=== PATIENT | male | born 1940 | race Caucasian/White ===

== ENCOUNTER 2020-01-22 11:08 | Inpatient (IN) | payer MEDICARE, SELFPAY ==
[2020-01-22] VITALS (13 sets, daily range): BP systolic 131–184; BP diastolic 50–74; PULSE 56–71; RESP 18–25; TEMP 36.3–36.7; O2SAT 91–96; BMI 37.4; BMI 38.0
--- NOTE | 2020-01-22 11:24 | RAD_ITS ---
STUDY: X-RAY CHEST REASON FOR EXAM: Male, 80 years old. Increase SOB, loss of taste/smell TECHNIQUE: Single AP portable view of the chest. COMPARISON: None. FINDINGS: EKG electrodes are seen. Zones of bilateral pulmonary infiltrates throughout both lungs worse in the left hemithorax. There is no demonstrated pleural abnormality. There is moderate cardiac enlargement. Normal mediastinum and mishel. Normal visualized pulmonary arteries. There is atherosclerotic calcification of the aortic arch with tortuosity. There are diffuse degenerative changes of the visualized thoracic spine. Normal visualized ribs, clavicles, and shoulders. There is no demonstrated abnormality of the visualized soft tissue structures of the upper abdomen. RAD/Chest 1 View (Portable) IMPRESSION: Progressive bilateral pulmonary infiltrates worse in the left hemithorax. Electronically Signed: Jeffy Sheehan, at 12:30 EST , Service support ,
--- NOTE | 2020-01-22 11:24 | EKG12_ITS ---
Test Reason : SOB Blood Pressure : / mmHG Vent. Rate : 056 BPM Atrial Rate : 056 BPM P-R Int : 160 ms QRS Dur : 102 ms QT Int : 448 ms P-R-T Axes : 035 001 034 degrees QTc Int : 432 ms Sinus bradycardia Otherwise normal ECG Confirmed by YANETH DAVIS, LISA ([id number]), writer editor MARIA A NG ([id number]) on 01/27/2020 9:18:56 AM Referred By: MALIK Confirmed By:LISA WOLFE MD
--- NOTE | 2020-01-22 11:26 | ED.DCSUM_ITS ---
History of Present Illness Informant: Patient Onset: Days Narrative: 80-year-old male with past medical history of hypertension, hyperlipidemia presents with shortness of breath. For the last 2 weeks he has had dyspnea on exertion when walking to the mailbox. He states he had a mild cough today but otherwise has not been coughing. Dyspnea on exertion progressed to walking short distances in his house and he became short of breath at rest. He has orthopnea and new lower extremity swelling. Denies history of cardiopulmonary disease. He states he had an echo and a stress test in the remote past. Denies fevers, chills, nausea, vomiting, chest pain, hemoptysis, abdominal pain, or diarrhea. <Adele Gil - Last Filed: 01/22/20 13:23> <Aurelio Tolentino - Last Filed: 01/22/20 13:53> Chief Complaint: Shortness of Breath Past Medical History Past Medical History: - - Hypertension, hyperlipidemia Smoking Status: Former smoker <Adele Gil - Last Filed: 01/22/20 13:23> <Aurelio Tolentino - Last Filed: 01/22/20 13:53> - Allergies and Home Meds Allergies/Adverse Reactions: Allergies doxazosin [From Cardura] Allergy (Verified 01/22/20 11:37) Swelling rosuvastatin [From Crestor] Adverse Reaction (Verified 01/22/20 11:37) Pain in joints Review of Systems General: Denies: Chills, Fever, Sweats Eyes: Denies: Visual changes - bilaterally, Diplopia ENT: Denies: Rhinorrhea, Sore throat Cardiovascular: Denies: Chest pain, Palpitations Respiratory: Reports: Dyspnea, Dyspnea on exertion, Orthopnea. Denies: Cough Gastrointestinal: Denies: Abdominal pain, Nausea, Vomiting, Diarrhea, Melena, Hematochezia Genitourinary: Denies: Dysuria, Hematuria, Frequency Musculoskeletal: Reports: Swelling. Denies: Back pain, Extremity Pain Skin: Denies: Rash, Wounds Neurological: Denies: Headache, Weakness, Numbness <Adele Gil - Last Filed: 01/22/20 13:23> Physical Exam Vital Signs/Narrative: Vital Signs Temp Pulse Resp BP Pulse Ox 01/22/20 11:13 97.7 F L 60 25 H 167/67 H 95 General: Well nourished, Well developed, No Acute Distress Head: Normocephalic, Atraumatic Eyes: Perrl, EOMI ENT: Moist mucous membranes, No rhinorrhea Neck: Supple, Nontender Cardiovascular: Regular rate, Regular rhythm, No murmurs Respiratory: No distress, CTA bilaterally, Chest nontender Abdomen: Soft, Nontender, Nondistended, Normal bowel sounds Back: Normal Inspection Extremities: Nontender, - - 3+ bilateral pitting edema below the knee Skin: Normal color, No rash Neurological: Alert, Oriented x3, Cranial nerves II-XII grossly intact, Normal Strength, Normal Sensation Psychological: Normal affect, Normal Mood <Adele Gil - Last Filed: 01/22/20 13:23> Vital Signs/Narrative: Vital Signs Temp Pulse Resp BP Pulse Ox 01/22/20 13:00 97.3 F L 58 L 22 H 158/63 H 92 01/22/20 12:22 97.3 F L 56 L 25 H 146/50 H 96 01/22/20 12:09 56 L 25 H 146/50 H 96 01/22/20 11:13 97.7 F L 60 25 H 167/67 H 95 01/22/20 11:09 56 L 24 H 184/74 H 94 <Aurelio Tolentino - Last Filed: 01/22/20 13:53> Diagnostic/Tx/Re-eval Clinical Impression(s) from Imaging Studies Chest X-Ray 01/22/20 11:24 IMPRESSION: Progressive bilateral pulmonary infiltrates worse in the left hemithorax. Electronically Signed: Jeffy Aguila, at 12:30 EST , Service support , Laboratory Data 01/22/20 01/22/20 01/22/20 11:40 11:40 11:40 WBC 14.0 H RBC 4.22 L Hgb 12.7 L Hct 39.7 L MCV 94.1 H MCH 30.1 MCHC 32.0 RDW Std Deviation 52.1 H RDW Coeff of Kristal 15.2 H Plt Count 293 MPV 10.9 Immature Gran % (Auto) 0.800 Neut % (Auto) 85.1 H Lymph % (Auto) 4.9 L [place] % (Auto) 8.7 Eos % (Auto) 0.3 Baso % (Auto) 0.2 Absolute Neuts (auto) 11.9 H Absolute Lymphs (auto) 0.68 L Nucleated RBC % 0.1 Specimen Type Sample Site pH Bicarbonate Actual Total CO2 Base Excess O2 Saturation ABG pCO2 ABG pO2 Luis A Test O2 Delivery Device Liter Flow Sodium 139 Potassium 4.1 Chloride 104 Carbon Dioxide 27.0 Anion Gap 8 BUN 35 H Creatinine 1.39 H Estim Creat Clear Calc 43.04 Est GFR (MDRD) Af Amer 63 Est GFR (MDRD) Non-Af 52 L BUN/Creatinine Ratio 25.2 H Glucose 116 H Calcium 9.5 Troponin I < 0.015 B-Natriuretic Peptide 304.1 H 01/22/20 11:57 WBC RBC Hgb Hct MCV MCH MCHC RDW Std Deviation RDW Coeff of Kristal Plt Count MPV Immature Gran % (Auto) Neut % (Auto) Lymph % (Auto) [place] % (Auto) Eos % (Auto) Baso % (Auto) Absolute Neuts (auto) Absolute Lymphs (auto) Nucleated RBC % Specimen Type ART Sample Site R Brach pH 7.36 Bicarbonate Actual 26.9 H Total CO2 28 Base Excess 2 O2 Saturation 94 L ABG pCO2 47.5 H ABG pO2 76 Luis A Test Positive O2 Delivery Device Cannula Liter Flow 5.0 Sodium Potassium Chloride Carbon Dioxide Anion Gap BUN Creatinine Estim Creat Clear Calc Est GFR (MDRD) Af Amer Est GFR (MDRD) Non-Af BUN/Creatinine Ratio Glucose Calcium Troponin I B-Natriuretic Peptide - Medical Decision Making 80-year-old male presents with shortness of breath. He walked into triage and O2 sat was in the 50-60s. He was initially placed on NRB and and sats improved and he was weaned to 5L NC and is maintaining over 90%. Lungs are clear to auscultation. He has significant lower extremity edema. Labs show leukocytosis of 14, creatinine of 1.39, BNP 300. ABG is essentially WNL with O2 94 on 5L NC. Troponin negative. EKG normal sinus rhythm with no ischemic changes. Chest x- ray was read as bilateral pulmonary infiltrates, but on ED attending interpretation appears to be fluid overloaded. He has not had a fever or consistent cough and I do not think this is pneumonia. COVID-19 is negative. He was treated with IV Lasix and will need admitted for O2 and further diuresis. Case discussed with hospitalist who was agreeable to admission and he was transferred to the floor in stable condition. <Adele Gil - Last Filed: 01/22/20 13:23> - Medical Decision Making Patient presents with shortness of breath and hypoxia. On 5 L nasal cannula, he did maintain his oxygen saturations. He does sound coarse with rales consistent with pulmonary edema. His chest x-ray shows bilateral pulmonary infiltrates, but I do suspect this is likely all volume. Patient was started on diuresis. Labs are relatively unremarkable. I do feel the patient would benefit from diuresis and echo. He was discussed with the hospitalist. <Aurelio Tolentino - Last Filed: 01/22/20 13:53> ED Disposition <Adele Gil - Last Filed: 01/22/20 13:23> <Aurelio Tolentino - Last Filed: 01/22/20 13:53> - Plan for ED Patient: Disposition: Acute Care Hospital [facility] Diagnosis: CHF (congestive heart failure), Respiratory failure
[2020-01-22 11:54] LABS: Absolute Lymphocyte Count 0.68 X10^3/uL (0.83-4.51); Absolute Neutrophil Count 11.9 X10^3/uL (2.0-7.7); Basophil# 0.03 X10^3/uL; Basophil% 0.2 % (0-1); Eosinophil# 0.04 X10^3/uL; Eosinophils% 0.3 % (0-5); Hematocrit 39.7 % (40-54); Hemoglobin 12.7 g/dL (13.0-16.5); Lymphocyte # 0.68 X10^3/ul (4.0); Lymphocyte % 4.9 % (19-41); Mean Corpuscular Hgb 30.1 pg (27.0-32.0); Mean Corpuscular Volume 94.1 fL (80-94); Mean Platelet Vol. 10.9 fl (6.2-12.0); Monocyte# 1.22 X10^3/uL; Monocyte% 8.7 % (0-10); NRBC Flagged by Analyzer 0.1 % (0-5); Neutrophil # 11.94 X10^3/uL (2.7-7.7); Neutrophil % 85.1 % (47-70); Platelet Count 293 K/mm3 (150-450); RBC Distribution Width CV 15.2 % (11.6-14.6); RBC Distribution Width SD 52.1 fl (35.1-43.9); Red Blood Count 4.22 M/mm3 (4.6-6.2)
[2020-01-22 12:00] LABS: Allen Test Positive; Base Excess 2 mmol/L (-2 to +2); Bicarbonate 26.9 mmol/L (22-26); Blood Gas Specimen Type ART; O2 Delivery Device Cannula; PO2 76 mmHG (75-100); SITE R Brach; SO2 94 % (95-99); Total Carbon Dioxide 28 mmol/L; pCO2 47.5 mmHg (35-45); pH 7.36 (7.35-7.45)
[2020-01-22 12:16] LABS: Anion Gap 8 (5-15); BUN 35 mg/dL (7-18); BUN/Creat Ratio 25.2 RATIO (10-20); Calcium,Total 9.5 mg/dL (8.5-10.1); Chloride 104 mmol/L (98-107); Creatinine, Serum 1.39 mg/dL (0.70-1.30); EST Glomerular Filtration Rate 52 mL/min (>60); Est Glom Filt Rate - Afr Amer 63 mL/min (>60); Estimated Creatinine Clearance 43.04 ml/min; Glucose 116 mg/dL (74-106); Potassium 4.1 mmol/L (3.5-5.1); Sodium Level 139 mmol/L (136-145)
[2020-01-22 12:19] LABS: BNP,B-Type NATRIURETIC PEPTIDE 304.1 pg/mL (0-100)
[2020-01-22] MEDS: Furosemide 40 MG/4 ML Vial IV ×2 (12:33→17:38)
--- NOTE | 2020-01-22 12:55 | ED.RN ---
pt stood at bedside and with exertion o2 sat dropped to 87% on 5l. with pt back and bed and resting now up to 92%. will monitor
[2020-01-22 13:16] LABS: Probe Check PASS; Specimen Processing Control PASS
--- NOTE | 2020-01-22 13:29 | HP.PCM_ITS ---
Problem List (1) CHF (congestive heart failure) Status: Acute Qualifiers: Heart failure type: unspecified Heart failure chronicity: acute Qualified Code(s): I50.9 - Heart failure, unspecified (2) Respiratory failure Status: Acute Qualifiers: Chronicity: acute Respiratory failure complication: hypoxia Qualified Code(s): J96.01 - Acute respiratory failure with hypoxia (3) Hypertension Status: Chronic Qualifiers: Hypertension type: essential hypertension Qualified Code(s): I10 - Essential (primary) hypertension (4) Hyperlipidemia Status: Chronic Qualifiers: Hyperlipidemia type: unspecified Qualified Code(s): E78.5 - Hyperlipidemia, unspecified History of Present Illness Date of Admission: 01/22/20 Chief Complaint: Shortness of breath ongoing for the past 2 days, worsening over the last 3 days. The patient is a 80 year old M with past medical history of hypertension, hyperlipidemia who comes in with progressive shortness of breath, bilateral leg swelling and orthopnea ongoing for 2 weeks, worsening the last 3 days. Patient had recently seen his primary care doctor in the telemedicine call, his triamterene hydrochlorothiazide was held, he was prescribed Lasix but he is yet to take it. Denied any chest pain or dizziness or palpitation. Denied any other new medication. Vitals in the ED showed temperature of 97.7F, heart rate 50, blood pressure 157/57, SPO2 was in the 50s on room air in triage. It improved to 94% on a n onrebreather mask. He started BC count 14.0, Hb 12.7, platelet count 293, numbers 139, potassium 4.1, chloride 104, bicarbonate 27, BUN 35, creatinine 1.39, troponin 0 0.015, COVID-19 PCR negative. BG showed pH 7.36, PCO2 was 47.5, SPO2 94%. Admitting chest x-ray shows moderate cardiac enlargement, bilateral progressive pulmonary infiltrates worse in the left hemithorax Past Medical History Past Medical History (Chronic Problems): Chronic Problems Hypertension (Chronic) Hyperlipidemia (Chronic) Allergies doxazosin [From Cardura] Allergy (Verified 01/22/20 11:37) Swelling rosuvastatin [From Crestor] Adverse Reaction (Verified 01/22/20 11:37) Pain in joints Home Medications: Ambulatory Orders Medication Instructions Recorded Acetaminophen [Tylenol Extra 500 mg PO BID 01/22/20 Strength] Amlodipine [Norvasc] 10 mg PO DAILY 01/22/20 Aspirin [Aspirin, Baby] 81 mg PO DAILY@0800 01/22/20 Labetalol HCl 300 mg PO BID 01/22/20 Lisinopril [Zestril] 20 mg PO BID 01/22/20 Naproxen Sodium [Aleve] 440 mg PO BID 01/22/20 Omeprazole 20 mg PO DAILY 01/22/20 Rosuvastatin Calcium [Crestor] 10 mg PO QHS 01/22/20 Triamterene 37.5MG/Hctz 25MG 1 tab PO DAILY 01/22/20 [Maxzide 37.5 mg-25 mg Tablet] Surgical History: - - s/p left carotid endarterectomy Psychiatric History: No pertinent psych hx Lives: Spouse/ Significant Other Smoking Status: Former smoker Tobacco Use: Non-smoker Alcohol: Occasional Drugs: None - *Family History Maternal History Items: Cancer - ovarian Paternal History Items: Heart Disease Review of Systems Constitutional: Reports: Weakness, Fatigue. Denies: Anorexia, Chills, Fever, Malaise, Weight Change Eyes: Denies: Blurred vision, Cataracts, Conjunctivae Inflammation HEENT: Denies: Difficulty Hearing, Difficulty Swallowing, Head Aches, Hearing Changes, Sinus Congestion, Sinus Drainage Cardiovascular: Reports: Edema, Orthopnea. Denies: Chest Pain, Heaviness, Light Headedness, Palpitations Respiratory: Reports: Shortness of Breath, Shortness of breath at rest, Shortness of breath upon exertion. Denies: Cough, Sputum production Gastrointestinal: Denies: Abdominal Pain, Hematemesis, Hematochezia, Nausea, Vomiting Genitourinary: Denies: Dysuria, Frequency, Incontinence Musculoskeletal: Denies: Joint Pain, Joint stiffness, Joint swelling, Joint Tenderness Skin: Denies: Rash, Wounds Neurological: Denies: Numbness, Tingling, Focal weakness Psychiatric: Denies: Anxiety, Depression, Homicidal Ideations, Suicidal Ideations Hematologic/ Lymphatic: Denies: Easy Bruising, Easy Bleeding VTE Information - Inpt Only VTE Present on Admission: No VTE Pharm Prophylaxis ordered?: Yes Patient Problems: Active and Suspected Problems CHF (congestive heart failure) (Acute) Respiratory failure (Acute) - Physical Exam Vitals/I&O's: Vital Signs Temp Pulse Resp BP Pulse Ox 97.3 F L 59 L 22 H 158/63 H 92 01/22/20 13:27 01/22/20 13:27 01/22/20 13:27 01/22/20 13:27 01/22/20 13:27 Oxygen Flow Rate (L/min) 5 Oxygen Delivery Method Nasal Cannula Weight: 118.4 kg Body Mass Index (BMI) 37.4 General: Alert, Oriented x3, Cooperative, - - in mild respiratory distress, on 5L oxygen at the time HEENT: Atraumatic, PERRLA, EOMI, Normocephalic Oral: Moist Mucosa Neck: Supple Lungs: Diminished Cardiovascular: Regular rate, Regular Rhythm, Normal S1, Normal S2, No murmurs Abdomen: Bowel Sounds Present, Soft, Non Tender, Non-Distended, No Hepato- splenomegaly Extremities: Edema - bilateral edema +3 Skin: No rashes Musculoskeletal: No Tenderness to Palpation of Joints or Extremities Lymphatic: No Cervical, Supraclavicular, or Inguinal Adenopathy Neurological: Cranial nerves II-XII grossly intact, Neuro grossly intact Psych/Mental Status: Normal Affect, Appropriate Laboratory Results 01/22/20 11:38: COVID-19 (STEVEN) Negative 01/22/20 11:40: WBC 14.0 H, RBC 4.22 L, Hgb 12.7 L, Hct 39.7 L, MCV 94.1 H, MCH 30.1, MCHC 32.0, RDW Std Deviation 52.1 H, RDW Coeff of Kristal 15.2 H, Plt Count 293, MPV 10.9, Immature Gran % (Auto) 0.800, Neut % (Auto) 85.1 H, Lymph % (Auto) 4.9 L, [place] % (Auto) 8.7, Eos % (Auto) 0.3, Baso % (Auto) 0.2, Absolute Neuts (auto) 11.9 H, Absolute Lymphs (auto) 0.68 L, Nucleated RBC % 0.1 01/22/20 11:40: Sodium 139, Potassium 4.1, Chloride 104, Carbon Dioxide 27.0, Anion Gap 8, BUN 35 H, Creatinine 1.39 H, Estim Creat Clear Calc 43.04, Est GFR (MDRD) Af Amer 63, Est GFR (MDRD) Non-Af 52 L, BUN/Creatinine Ratio 25.2 H, Gluc ose 116 H, Calcium 9.5, Troponin I < 0.015 01/22/20 11:40: B-Natriuretic Peptide 304.1 H 01/22/20 11:57: Specimen Type ART, Sample Site R Brach, pH 7.36, Bicarbonate Actual 26.9 H, Total CO2 28, Base Excess 2, O2 Saturation 94 L, ABG pCO2 47.5 H, ABG pO2 76, Luis A Test Positive, O2 Delivery Device Cannula, Liter Flow 5.0 Assessment/Plan All Active Problems CHF (congestive heart failure) (Acute) Respiratory failure (Acute) 1. Acute hypoxic respiratory insufficiency due to acute CHF Continue with breathing treatments, IV lasix, encourage use of incentive spirometer. Wean off oxygen for SPO2 more than 94% failure 2. Acute CHF, unknown EF, new onset History of hypertension, morbid obesity, suspected CHF with preserved EF EKG shows normal sinus rhythm, no acute ST-T changes. Troponins are negative We will trend troponins, Lasix 40 mg IV twice daily, strict I & Os, daily weight, fluid restriction, JOSEP-wraps to legs Hold home Naprosyn, triamterene/HCTZ 3. Hypertension, uncontrolled, continue on labetalol, lisinopril Hold amlodipine for now Hydralazine as needed 4. Hyperlipidemia, continue on statin 5. WILLIAM versus CKD stage III, unknown previous creatinine Repeat blood work in a.m. 6. DVT prophylaxis?heparin subcu 7. CODE STATUS?DNR CCA, no intubation I discussed and explained in details the various types of CODE STATUS-full code, DNR CCA, DNR CC. Patient chose DNR CCA, no intubation Time spent discussing CODE STATUS 18 minutes Inpatient E&M: 19555 Init Hosp L3 Procedures: 32258 Advncd Care Plan 30 Min
--- NOTE | 2020-01-22 13:48 | NURSING ---
128 paintsil new onset chf, hypoxia
--- NOTE | 2020-01-22 14:21 | PCS.PANDOC ---
PANDEMIC DOCUMENTATION INITIATED: Date: 01/22/2020 Time: 1400
--- NOTE | 2020-01-22 14:29 | ECHOCS_ITS ---
Reason For Study: DYSPNEA/SOB Procedure This was a 2D Doppler, Color Flow transthoracic echocardiogram. Exam performed portable in patient room. Left Ventricle Normal LV size. Left ventricular systolic function is normal. The estimated ejection fraction is 55 %. No regional wall motion abnormalities noted. Right Ventricle Normal RV size. Normal systolic function. Atria The left atrium is mildly enlarged. Normal right atrium. Tricuspid Valve Normal tricuspid valve. Mild to moderate (1-2+) tricuspid valve insufficiency. Pulmonary artery systolic pressure is 42 mmHg. Mild pulmonary hypertension. Aortic Valve Trisinus/trileaflet aortic valve. Mild aortic stenosis. Great Vessels Normal aortic root. The pulmonary artery is normal size. Normal inferior vena cava. Pericardium/Pleural No pericardial effusion. MMode/2D Measurements & Calculations LVIDd: 5.1 cm IVSd: 1.2 cm LVOT diam: 2.0 cm LVIDs: 3.1 cm LVPWd: 1.1 cm LVOT area: 3.2 cm2 RVDd: 3.8 cm FS: 39.7 % Ao root diam: 3.4 cm LAV(MOD-bp): 88.0 ml LA A4 area: 24.2 cm2 LAV(MOD-bp) Indexed: 37.4 ml/m2 LAV(MOD-sp2): 88.1 ml LAV(MOD-sp4): 78.9 ml LA dimension(2D): 4.1 cm RA A4 area: 20.6 cm2 Time Measurements MV dec time: 0.17 sec Doppler Measurements & Calculations MV E max jason: 122.6 cm/sec Lat Peak E' Jason: 7.9 cm/sec Med Peak E' Jason: 6.4 cm/sec MV A max jason: 97.6 cm/sec E/E' lat: 15.4 E/E' med: 19.2 MV E/A: 1.3 Ao V2 max: 213.4 cm/sec LV V1 max: 112.9 cm/sec SV(LVOT): 92.9 ml Ao max P.2 mmHg LV V1 max P.1 mmHg Ao V2 mean: 154.1 cm/sec LV V1 mean P.0 mmHg Ao mean P.3 mmHg LV V1 mean: 82.0 cm/sec Ao V2 VTI: 49.5 cm LV V1 VTI: 29.1 cm [place](I,D): 1.9 cm2 [place](V,D): 1.7 cm2 PA V2 max: 94.7 cm/sec TR max jason: 310.6 cm/sec TR max P.6 mmHg Interpretation Summary Normal LV size. Left ventricular systolic function is normal. The estimated ejection fraction is 55 %. The left atrium is mildly enlarged. Pulmonary artery systolic pressure is 42 mmHg. Mild pulmonary hypertension. Ordering Physician: Bhavani Salas Referring Physician: Bandar Goldsmith Performed By: Ibis Baker RVT, RDCS and Student
[2020-01-22] MEDS: Heparin Injection (Vial) 5,000 UNIT/ML VIAL 5000 UNIT SC ×2 (16:21→22:14)
[2020-01-22] MEDS: Atorvastatin Calcium 20 MG Tablet PO (21:59)
[2020-01-22] MEDS: Lisinopril 20 MG Tablet PO (21:59)
[2020-01-22] MEDS: Labetalol 100 MG Tablet 300 MG PO (21:59)
[2020-01-23] VITALS (11 sets, daily range): BP systolic 136–174; BP diastolic 41–64; PULSE 54–66; RESP 18–20; TEMP 36.8–37.1; O2SAT 92–94
[2020-01-23] MEDS: Heparin Injection (Vial) 5,000 UNIT/ML VIAL 5000 UNIT SC ×3 (05:57→22:15)
[2020-01-23 08:13] LABS: Absolute Lymphocyte Count 0.86 X10^3/uL (0.83-4.51); Absolute Neutrophil Count 10.3 X10^3/uL (2.0-7.7); Basophil# 0.05 X10^3/uL; Basophil% 0.4 % (0-1); Eosinophils% 0.8 % (0-5); Hematocrit 41.3 % (40-54); Hemoglobin 13.1 g/dL (13.0-16.5); Lymphocyte # 0.86 X10^3/ul (4.0); Lymphocyte % 6.8 % (19-41); Mean Corp Hgb Conc 31.7 g/dL (32-36); Mean Corpuscular Hgb 30.3 pg (27.0-32.0); Mean Corpuscular Volume 95.6 fL (80-94); Mean Platelet Vol. 10.6 fl (6.2-12.0); Monocyte# 1.18 X10^3/uL; Monocyte% 9.4 % (0-10); NRBC Flagged by Analyzer 0 % (0-5); Neutrophil # 10.32 X10^3/uL (2.7-7.7); Platelet Count 271 K/mm3 (150-450); RBC Distribution Width CV 14.9 % (11.6-14.6); RBC Distribution Width SD 51.7 fl (35.1-43.9); Red Blood Count 4.32 M/mm3 (4.6-6.2); White Blood Count 12.6 K/mm3 (4.4-11.0)
[2020-01-23 08:30] LABS: ALB/GLOB Ratio 0.8 RATIO (0.9-2.4); AST(SGOT) 15 U/L (15-37); Alanine Aminotransfer ALT/SGPT 19 U/L (16-61); Alkaline Phosphatase 96 U/L (45-117); Anion Gap 6 (5-15); BUN 40 mg/dL (7-18); BUN/Creat Ratio 26.7 RATIO (10-20); Calcium,Total 9.5 mg/dL (8.5-10.1); Chloride 106 mmol/L (98-107); EST Glomerular Filtration Rate 48 mL/min (>60); Est Glom Filt Rate - Afr Amer 58 mL/min (>60); Estimated Creatinine Clearance 39.88 ml/min; Globulin 3.9 g/dL (2.2-4.2); Glucose 104 mg/dL (74-106); Potassium 3.7 mmol/L (3.5-5.1); Protein, Total 6.9 g/dL (6.4-8.2); Sodium Level 143 mmol/L (136-145)
[2020-01-23] MEDS: Furosemide 40 MG/4 ML Vial IV (08:54)
[2020-01-23] MEDS: Aspirin 81 MG TAB.CHEW PO (08:54)
[2020-01-23] MEDS: 0.9% Saline Lock 10 ML Syringe IV (08:54)
[2020-01-23] MEDS: Pantoprazole Sodium 20 MG Tablet PO (08:54)
[2020-01-23] MEDS: Labetalol 100 MG Tablet 300 MG PO ×2 (08:55→22:15)
[2020-01-23] MEDS: Lisinopril 20 MG Tablet PO (08:55)
--- NOTE | 2020-01-23 10:50 | PCM.PN.HOSP ---
Patient Problems: Active and Suspected Problems CHF (congestive heart failure) (Acute) Respiratory failure (Acute) Subjective: Feels much better today, he is breathing a bit better as well, he is down to 4 L nasal cannula from the 6 that he was on when he came in Vitals/I&O's: Vital Signs Temp Pulse Resp BP Pulse Ox 98.3 F 54 L 18 136/41 H 93 01/23/20 05:56 01/23/20 06:55 01/23/20 05:56 01/23/20 05:56 01/23/20 08:01 Oxygen Flow Rate (L/min) 4 Oxygen Delivery Method Nasal Cannula Weight: 227 lb 15.327 oz Body Mass Index (BMI) 38.0 Intake and Output for Last 24 Hours 01/21/20 01/22/20 01/23/20 23:59 23:59 23:59 Intake Total 240 / 240 Output Total 650 / 900 400 / 400 Balance -410 / -660 -400 / -400 General: Alert, Oriented x3, Cooperative, No apparent distress HEENT: Atraumatic, PERRLA, EOMI, Normocephalic Oral: Moist Mucosa Neck: Supple, No JVD Lungs: Normal air movement, No rhonchi, No wheeze, Diminished, Rales Cardiovascular: Regular rate, Regular Rhythm, Normal S1, Normal S2, No murmurs Abdomen: Soft, Non Tender, Non-Distended, No Hepato-splenomegaly Extremities: Capillary Refill Less than 3 Seconds, Edema - 2+ bilateral edema Skin: No rashes, No breakdown Neurological: Neuro grossly intact, Sensory exam intact to light touch and pain Psych/Mental Status: Normal Affect, Appropriate Laboratory Results 01/22/20 11:38: COVID-19 (STEVEN) Negative 01/22/20 11:40: WBC 14.0 H, RBC 4.22 L, Hgb 12.7 L, Hct 39.7 L, MCV 94.1 H, MCH 30.1, MCHC 32.0, RDW Std Deviation 52.1 H, RDW Coeff of Kristal 15.2 H, Plt Count 293, MPV 10.9, Immature Gran % (Auto) 0.800, Neut % (Auto) 85.1 H, Lymph % (Auto) 4.9 L, [place] % (Auto) 8.7, Eos % (Auto) 0.3, Baso % (Auto) 0.2, Absolute Neuts (auto) 11.9 H, Absolute Lymphs (auto) 0.68 L, Nucleated RBC % 0.1 01/22/20 11:40: Sodium 139, Potassium 4.1, Chloride 104, Carbon Dioxide 27.0, Anion Gap 8, BUN 35 H, Creatinine 1.39 H, Estim Creat Clear Calc 43.04, Est GFR (MDRD) Af Amer 63, Est GFR (MDRD) Non-Af 52 L, BUN/Creatinine Ratio 25.2 H, Glucose 116 H, Calcium 9.5, Troponin I < 0.015 01/22/20 11:40: B-Natriuretic Peptide 304.1 H 01/22/20 11:57: Specimen Type ART, Sample Site R Brach, pH 7.36, Bicarbonate Actual 26.9 H, Total CO2 28, Base Excess 2, O2 Saturation 94 L, ABG pCO2 47.5 H, ABG pO2 76, Luis A Test Positive, O2 Delivery Device Cannula, Liter Flow 5.0 01/22/20 15:58: Troponin I < 0.015 01/22/20 17:29: Troponin I < 0.015 01/23/20 07:15: WBC 12.6 H, RBC 4.32 L, Hgb 13.1, Hct 41.3, MCV 95.6 H, MCH 30.3, MCHC 31.7 L, RDW Std Deviation 51.7 H, RDW Coeff of Kristal 14.9 H, Plt Count 271, MPV 10.6, Immature Gran % (Auto) 0.600, Neut % (Auto) 82.0 H, Lymph % (Auto) 6.8 L, [place] % (Auto) 9.4, Eos % (Auto) 0.8, Baso % (Auto) 0.4, Absolute Neuts (auto) 10.3 H, Absolute Lymphs (auto) 0.86, Nucleated RBC % 0 01/23/20 07:15: Sodium Cancelled, Potassium Cancelled, Chloride Cancelled, Carbon Dioxide Cancelled, Anion Gap Cancelled, BUN Cancelled, Creatinine Cancelled, Estim Creat Clear Calc Cancelled, Est GFR (MDRD) Af Amer Cancelled, Est GFR (MDRD) Non-Af Cancelled, BUN/Creatinine Ratio Cancelled, Glucose Cancelled, Calcium Cancelled, Total Bilirubin Cancelled, AST Cancelled, ALT Cancelled, Alkaline Phosphatase Cancelled, Total Protein Cancelled, Albumin Cancelled, Globulin Cancelled, Albumin/Globulin Ratio Cancelled 01/23/20 08:00: Sodium 143, Potassium 3.7, Chloride 106, Carbon Dioxide 31.0, Anion Gap 6, BUN 40 H, Creatinine 1.50 H, Estim Creat Clear Calc 39.88, Est GFR (MDRD) Af Amer 58 L, Est GFR (MDRD) Non-Af 48 L, BUN/Creatinine Ratio 26.7 H, Glucose 104, Calcium 9.5, Total Bilirubin 0.90, AST 15, ALT 19, Alkaline Phosphatase 96, Total Protein 6.9, Albumin 3.0 L, Globulin 3.9, Albumin/Globulin Ratio 0.8 L Current Medications Acetaminophen (Acetaminophen 325 Mg Tablet) 650 mg PO Q6H PRN PRN PRN Reason: Pain Score 1-10/Temp > 100.7 F Albuterol Sulfate (Albuterol 2.5 Mg/3 Ml Vial.Neb.) 2.5 mg INHALATION Q2H PRN PRN PRN Reason: SOB/Wheezing Aspirin (Aspirin 81 Mg Tab.Chew) 81 mg PO DAILY@0800 [facility] Last Admin: 01/23/20 08:54 Dose: 81 mg Documented by: Atorvastatin Calcium (Atorvastatin Calcium 20 Mg Tablet) 20 mg PO QHS [facility] Last Admin: 01/22/20 21:59 Dose: 20 mg Documented by: Furosemide (Furosemide 40 Mg/4 Ml Vial) 40 mg IV BID@1000,1800 [facility] Last Admin: 01/23/20 08:54 Dose: 40 mg Documented by: Heparin Sodium (Porcine) (Heparin Injection (Vial) 5,000 Unit/Ml Vial) 5,000 unit SC Q8 [facility] Last Admin: 01/23/20 05:57 Dose: 5,000 unit Documented by: Labetalol HCl (Labetalol 100 Mg Tablet) 300 mg PO BID [facility] Last Admin: 01/23/20 08:55 Dose: 300 mg Documented by: Lisinopril (Lisinopril 20 Mg Tablet) 20 mg PO BID [facility] Last Admin: 01/23/20 08:55 Dose: 20 mg Documented by: Nitroglycerin (Nitroglycerin (Inpatient Use) 0.4 Mg Tab.Subl) 0.4 mg SUBLINGUAL Q5M PRN PRN Reason: CARDIAC/CHEST PAIN Ondansetron HCl (Ondansetron 4 Mg/2 Ml Vial) 4 mg IV Q8H PRN PRN PRN Reason: NAUSEA/VOMITING Pantoprazole Sodium (Pantoprazole Sodium 20 Mg Tablet) 20 mg PO DAILY [facility] Last Admin: 01/23/20 08:54 Dose: 20 mg Documented by: Senna/Docusate Sodium (Senna/Docusate Sodium 1 Tablet) 2 tablet PO BID PRN PRN PRN Reason: Constipation Sodium Chloride (0.9% Saline Lock 10 Ml Syringe) 10 - 40 ml IV UD PRN PRN Reason: SALINE FLUSH Last Admin: 01/23/20 08:54 Dose: 10 ml Documented by: STROKE Vital Signs/Narrative: Vital Signs Pulse Pulse Ox 01/23/20 08:01 93 01/23/20 06:55 54 L Medical Necessity - Tobacco Use Smoking Status: Former smoker Tobacco Use: Non-smoker Assessment/Plan All Active Problems CHF (congestive heart failure) (Acute) Respiratory failure (Acute) 1. Acute hypoxic respiratory insufficiency secondary to new onset CHF unknown type/uncontrolled HTN/HLD -Creatinine admission was 1.39, today is 1.50 we will still continue with his Lasix however unknown as to what his baseline creatinine function is. -BNP was elevated to 304 on admission, Covid was negative. -Continue with labetalol, aspirin, lisinopril, Crestor, will decrease his lisinopril dose as he will likely need now need to be discharged on Lasix. Given his swelling will hold his Norvasc as well as his thiazide diuretic, will continue to monitor his renal function as well as his blood pressure and make any more medication adjustments as necessary -Echo is pending however his history with increased leg swelling and orthopnea is very consistent with CHF 2. GERD -Stable -Continue with PPI DVT: Heparin In[facility] E&M: [facility]
[2020-01-23] MEDS: Atorvastatin Calcium 20 MG Tablet PO (22:16)
[2020-01-24] VITALS (10 sets, daily range): BP systolic 134–155; BP diastolic 44–68; PULSE 49–67; RESP 16–20; TEMP 36.3–36.8; O2SAT 93–96
[2020-01-24 05:32] LABS: Absolute Lymphocyte Count 0.94 X10^3/uL (0.83-4.51); Basophil# 0.03 X10^3/uL; Basophil% 0.3 % (0-1); Eosinophil# 0.24 X10^3/uL; Eosinophils% 2.3 % (0-5); Hematocrit 40.4 % (40-54); Hemoglobin 12.6 g/dL (13.0-16.5); Lymphocyte # 0.94 X10^3/ul (4.0); Mean Corp Hgb Conc 31.2 g/dL (32-36); Mean Corpuscular Hgb 29.7 pg (27.0-32.0); Mean Corpuscular Volume 95.3 fL (80-94); Mean Platelet Vol. 10.6 fl (6.2-12.0); Monocyte# 1.14 X10^3/uL; NRBC Flagged by Analyzer 0 % (0-5); Neutrophil # 8.01 X10^3/uL (2.7-7.7); Neutrophil % 77.1 % (47-70); Platelet Count 275 K/mm3 (150-450); RBC Distribution Width CV 14.7 % (11.6-14.6); RBC Distribution Width SD 51.9 fl (35.1-43.9); Red Blood Count 4.24 M/mm3 (4.6-6.2); White Blood Count 10.4 K/mm3 (4.4-11.0)
[2020-01-24 05:52] LABS: Anion Gap 6 (5-15); BUN 49 mg/dL (7-18); BUN/Creat Ratio 32.5 RATIO (10-20); Calcium,Total 9.2 mg/dL (8.5-10.1); Chloride 103 mmol/L (98-107); Creatinine, Serum 1.51 mg/dL (0.70-1.30); EST Glomerular Filtration Rate 47 mL/min (>60); Est Glom Filt Rate - Afr Amer 57 mL/min (>60); Estimated Creatinine Clearance 39.62 ml/min; Glucose 106 mg/dL (74-106); Potassium 3.4 mmol/L (3.5-5.1); Sodium Level 142 mmol/L (136-145)
[2020-01-24] MEDS: Heparin Injection (Vial) 5,000 UNIT/ML VIAL 5000 UNIT SC ×3 (05:58→21:53)
[2020-01-24] MEDS: Furosemide 40 MG/4 ML Vial IV (08:46)
[2020-01-24] MEDS: Labetalol 100 MG Tablet 300 MG PO ×2 (08:46→21:53)
[2020-01-24] MEDS: Pantoprazole Sodium 20 MG Tablet PO (08:47)
[2020-01-24] MEDS: Lisinopril 20 MG Tablet PO (08:47)
[2020-01-24] MEDS: Aspirin 81 MG TAB.CHEW PO (08:47)
--- NOTE | 2020-01-24 15:04 | PCM.PN.HOSP ---
Patient Problems: Active and Suspected Problems CHF (congestive heart failure) (Acute) Respiratory failure (Acute) Subjective: Breathing little bit better. Still with some lower extremity edema and still has difficulty lying flat. Vitals/I&O's: Vital Signs Temp Pulse Resp BP Pulse Ox 98.3 F 55 L 18 134/46 H 96 01/24/20 14:00 01/24/20 14:00 01/24/20 14:00 01/24/20 14:00 01/24/20 14:00 Oxygen Flow Rate (L/min) 3.5 Oxygen Delivery Method Nasal Cannula Weight: 227 lb 15.327 oz Body Mass Index (BMI) 38.0 Intake and Output for Last 24 Hours 01/22/20 01/23/20 01/24/20 23:59 23:59 23:59 Intake Total 240 / 240 680 / 1120 660 / 660 Output Total 650 / 900 700 / 1300 2300 / 2300 Balance -410 / -660 -20 / -180 -1640 / -1640 General: Alert, Oriented x3, Cooperative, No apparent distress HEENT: Atraumatic, PERRLA, EOMI, Normocephalic Oral: Moist Mucosa Neck: Supple, No JVD Lungs: Normal air movement, No rhonchi, No wheeze, Diminished, Rales Cardiovascular: Regular rate, Regular Rhythm, Normal S1, Normal S2, No murmurs Abdomen: Soft, Non Tender, Non-Distended, No Hepato-splenomegaly Extremities: Capillary Refill Less than 3 Seconds, Edema - 1+ bilateral edema Skin: No rashes, No breakdown Neurological: Neuro grossly intact, Sensory exam intact to light touch and pain Psych/Mental Status: Normal Affect, Appropriate Laboratory Results 01/24/20 05:23: WBC 10.4, RBC 4.24 L, Hgb 12.6 L, Hct 40.4, MCV 95.3 H, MCH 29.7, MCHC 31.2 L, RDW Std Deviation 51.9 H, RDW Coeff of Kristal 14.7 H, Plt Count 275, MPV 10.6, Immature Gran % (Auto) 0.300, Neut % (Auto) 77.1 H, Lymph % (Auto) 9.0 L, [place] % (Auto) 11.0 H, Eos % (Auto) 2.3, Baso % (Auto) 0.3, Absolute Neuts (auto) 8.0 H, Absolute Lymphs (auto) 0.94, Nucleated RBC % 0 01/24/20 05:23: Sodium 142, Potassium 3.4 L, Chloride 103, Carbon Dioxide 33.0 H, Anion Gap 6, BUN 49 H, Creatinine 1.51 H, Estim Creat Clear Calc 39.62, Est GFR (MDRD) Af Amer 57 L, Est GFR (MDRD) Non-Af 47 L, BUN/Creatinine Ratio 32.5 H, Glucose 106, Calcium 9.2 Current Medications Acetaminophen (Acetaminophen 325 Mg Tablet) 650 mg PO Q6H PRN PRN PRN Reason: Pain Score 1-10/Temp > 100.7 F Albuterol Sulfate (Albuterol 2.5 Mg/3 Ml Vial.Neb.) 2.5 mg INHALATION Q2H PRN PRN PRN Reason: SOB/Wheezing Aspirin (Aspirin 81 Mg Tab.Chew) 81 mg PO DAILY@0800 [facility] Last Admin: 01/24/20 08:47 Dose: 81 mg Documented by: Atorvastatin Calcium (Atorvastatin Calcium 20 Mg Tablet) 20 mg PO QHS [facility] Last Admin: 01/23/20 22:16 Dose: 20 mg Documented by: Furosemide (Furosemide 40 Mg/4 Ml Vial) 40 mg IV DAILY [facility] Last Admin: 01/24/20 08:46 Dose: 40 mg Documented by: Heparin Sodium (Porcine) (Heparin Injection (Vial) 5,000 Unit/Ml Vial) 5,000 unit SC Q8 [facility] Last Admin: 01/24/20 14:58 Dose: 5,000 unit Documented by: Labetalol HCl (Labetalol 100 Mg Tablet) 300 mg PO BID [facility] Last Admin: 01/24/20 08:46 Dose: 300 mg Documented by: Lisinopril (Lisinopril 20 Mg Tablet) 20 mg PO DAILY [facility] Last Admin: 01/24/20 08:47 Dose: 20 mg Documented by: Nitroglycerin (Nitroglycerin (Inpatient Use) 0.4 Mg Tab.Subl) 0.4 mg SUBLINGUAL Q5M PRN PRN Reason: CARDIAC/CHEST PAIN Ondansetron HCl (Ondansetron 4 Mg/2 Ml Vial) 4 mg IV Q8H PRN PRN PRN Reason: NAUSEA/VOMITING Pantoprazole Sodium (Pantoprazole Sodium 20 Mg Tablet) 20 mg PO DAILY [facility] Last Admin: 01/24/20 08:47 Dose: 20 mg Documented by: Senna/Docusate Sodium (Senna/Docusate Sodium 1 Tablet) 2 tablet PO BID PRN PRN PRN Reason: Constipation Sodium Chloride (0.9% Saline Lock 10 Ml Syringe) 10 - 40 ml IV UD PRN PRN Reason: SALINE FLUSH Last Admin: 01/23/20 08:54 Dose: 10 ml Documented by: STROKE Vital Signs/Narrative: Vital Signs Temp Pulse Resp BP Pulse Ox 01/24/20 14:00 98.3 F 55 L 18 134/46 H 96 Medical Necessity - Tobacco Use Smoking Status: Former smoker Tobacco Use: Non-smoker Assessment/Plan All Active Problems CHF (congestive heart failure) (Acute) Respiratory failure (Acute) 1. Acute hypoxic respiratory insufficiency secondary to new onset diastolic CHF/uncontrolled HTN/HLD/pulmonary hypertension -Creatinine admission was 1.39, today is 1.50 we will still continue with his Lasix however unknown as to what his baseline creatinine function is. -BNP was elevated to 304 on admission, Covid was negative. -Continue with labetalol, aspirin, lisinopril, Crestor, will decrease his lisinopril dose as he will likely need now need to be discharged on Lasix. Given his swelling will hold his Norvasc as well as his thiazide diuretic, will continue to monitor his renal function as well as his blood pressure and make any more medication adjustments as necessary -Echo with an EF of 55% and pulmonary artery systolic pressure of 42 mmHg -We will decrease his Lasix dosing from twice daily to daily, his CO2 is rising and his creatinine is 1.51 2. GERD -Stable -Continue with PPI DVT: Heparin Inpatient E&M: [id number] Subs Hosp L2
[2020-01-24] MEDS: Atorvastatin Calcium 20 MG Tablet PO (21:53)
[2020-01-25 03:00] VITALS: PULSE 52
[2020-01-25 03:45] VITALS: BP 141/62; PULSE 56; RESP 18; TEMP 36.9; O2SAT 92
[2020-01-25] MEDS: Heparin Injection (Vial) 5,000 UNIT/ML VIAL 5000 UNIT SC (06:01)
[2020-01-25 07:07] VITALS: PULSE 61
[2020-01-25] MEDS: Aspirin 81 MG TAB.CHEW PO (08:00)
[2020-01-25] MEDS: Pantoprazole Sodium 20 MG Tablet PO (08:00)
[2020-01-25 08:25] VITALS: O2SAT 92
[2020-01-25 08:54] VITALS: BP 164/53; PULSE 60; RESP 17; TEMP 36.6; O2SAT 94
[2020-01-25 08:54] LABS: Anion Gap 2 (5-15); BUN 44 mg/dL (7-18); BUN/Creat Ratio 35.8 RATIO (10-20); Calcium,Total 9.6 mg/dL (8.5-10.1); Chloride 107 mmol/L (98-107); Creatinine, Serum 1.23 mg/dL (0.70-1.30); EST Glomerular Filtration Rate 60 mL/min (>60); Est Glom Filt Rate - Afr Amer 73 mL/min (>60); Estimated Creatinine Clearance 48.63 ml/min; Glucose 99 mg/dL (74-106); Potassium 3.9 mmol/L (3.5-5.1); Sodium Level 144 mmol/L (136-145)
[2020-01-25] MEDS: Lisinopril 20 MG Tablet PO (08:57)
[2020-01-25] MEDS: Labetalol 100 MG Tablet 300 MG PO (08:57)
[2020-01-25] MEDS: Furosemide 40 MG/4 ML Vial IV (08:58)
[2020-01-25] MEDS: 0.9% Saline Lock 10 ML Syringe IV (08:58)
--- NOTE | 2020-01-25 10:24 | PCM.DC ---
- Discharge Diagnoses Current Active Problems: Current Active and Chronic Problems CHF (congestive heart failure) (Acute) Respiratory failure (Acute) Hypertension (Chronic) Hyperlipidemia (Chronic) You will use the following diet at home:: Cardiac Your food should be the consistency of: Regular Your liquids should be the consistency of: Regular/Thin Discharge Activity: Return to Normal Activity Weight Bearing Status: Weight bearing as tolerated Call your doctor if you observe: Fever of 101 or Higher, Shortness of breath, Dizziness, Fainting spells, Swelling in the ankles, Chest pain, Increased palpitations (irregular heartbeat), - Instructions: Heart Failure, Heart Failure: Evaluating Your Heart, Heart Failure: Making Changes to Your Diet, Heart Failure: Medications to Help Your Heart, Heart Failure: Tracking Your Weight, Taking Medication to Control Heart Failure Additional Instructions: use 2L of oxygen as needed for shortness of breath Allergies/Adverse Reactions: Allergies doxazosin [From Cardura] Allergy (Verified 01/22/20 11:37) Swelling rosuvastatin [From Crestor] Adverse Reaction (Verified 01/22/20 11:37) Pain in joints Medications to take at Discharge Acetaminophen [Tylenol Extra Strength] 500 mg PO BID 01/22/20 Amlodipine [Norvasc] 10 mg PO DAILY 01/22/20 Aspirin [Aspirin, Baby] 81 mg PO DAILY@0800 01/22/20 Labetalol HCl 300 mg PO BID 01/22/20 Lisinopril [Zestril] 20 mg PO BID 01/22/20 Naproxen Sodium [Aleve] 440 mg PO BID 01/22/20 Omeprazole 20 mg PO DAILY 01/22/20 Rosuvastatin Calcium [Crestor] 10 mg PO QHS 01/22/20 Carvedilol 3.125 mg PO BID #60 tab 01/25/20 Furosemide [Lasix] 40 mg PO DAILY #30 tab 01/25/20 Potassium Chloride [K-Dur] 20 meq PO DAILY #30 tab 01/25/20 The following prescriptions were given: Carvedilol 3.125 mg PO BID #60 tab Transmission Status: Pending to [facility]/pharmacy #[id number] Potassium Chloride [K-Dur] 20 meq PO DAILY #30 tab Transmission Status: Pending to [facility]pharmacy #[id number] Furosemide [Lasix] 40 mg PO DAILY #30 tab Transmission Status: Pending to [facility]/pharmacy #[id number] Primary Care Physician: Bandar Goldsmith III, MD [Primary Care Provider] - Please follow up with your Primary Care Physician in: 1-2 weeks Test Results: Test results from this visit will be discussed in further detail at your follow-up appointment, if applicable. Please Follow Up With: Adonis Baker MD When: 2-3 weeks to establish care for heart failure Proposed Discharge Date: 01/25/20
--- NOTE | 2020-01-25 10:28 | DS.PCM_ITS ---
Discharge Date and Diagnosis - Problem List Patient Problems: Active and Suspected Problems CHF (congestive heart failure) (Acute) Respiratory failure (Acute) Date of Admission: 01/22/20 Date of Discharge: 01/25/20 - Primary Discharge Diagnosis Acute Problems: Active Problems CHF (congestive heart failure) (Acute) with preserved EF Respiratory failure (Acute) - Secondary Discharge Diagnosis Chronic Problems: Chronic Problems Hypertension (Chronic) Hyperlipidemia (Chronic) Hospital Course and Treatment Imaging Results: Diagnostic Data Chest X-Ray 01/22/20 11:24 IMPRESSION: Progressive bilateral pulmonary infiltrates worse in the left hemithorax. Electronically Signed: Jeffy Sheehan, at 12:30 EST , Service support , Interpretation Summary Normal LV size. Left ventricular systolic function is normal. The estimated ejection fraction is 55 %. The left atrium is mildly enlarged. Pulmonary artery systolic pressure is 42 mmHg. Mild pulmonary hypertension. Operations: None Procedures: 2-D Echocardiogram Summary of Care Provided: The patient is a 80 year old M with a past medical history as outlined who was admitted through the ED on 01/22/2020 with a complaint of progressively worsening shortness of breath with associated bilateral lower extremity swelling and orthopnea which have been going on for about 2 weeks prior to his admission and had worsening to 3 days prior to admission. He had seen his PCP in televisit and his Maxide was held and he was started on Lasix. However he had not yet picked up the prescription. On admission, troponins were negative and Covid test done was negative. Chest x-ray showed bilateral progressive pulmonary infiltrates of moderate cardiac enlargement. BNP was 304.1. He was admitted and managed for acute hypoxic respiratory failure of unknown EF and started on diuresis with IV Lasix. He was put on fluid restriction and input and output was strictly monitored. 2D echo showed EF of 55% with mildly enlarged left atrium and normal left ventricular systolic function with pulmonary artery systolic pressure 42 mmHg. Shortness of breath gradually improved and patient felt much better. He qualified for home oxygen as his oxygen saturation on room air was 85% went up to 92% on 2 L of oxygen and with ambulation. He was therefore discharged him on 01/25/2020 with a prescription for p.o. Lasix 40 mg daily as well as p.o. potassium 20 mEq daily. He is to follow-up with his primary care doctor and was referred to cardiology- Dr Adonis Baker, for follow-up of his heart failure. Also counseled to use oxygen as needed for shortness of breath. Patient seen and examined prior to discharge. He felt well and had no complaints and wanted to be discharged home. Review of systems otherwise negative. Labs and vitals reviewed. Home medication reviewed and reconciled. O/E: Vital Signs Temp Pulse Resp BP Pulse Ox 97.8 F 60 17 164/53 H 85 01/25/20 08:54 01/25/20 08:54 01/25/20 08:54 01/25/20 08:54 01/25/20 10:56 [] General: Alert, Oriented x3, Cooperative, No apparent distress HEENT: Atraumatic, PERRLA, EOMI, Normocephalic Oral: Moist Mucosa Neck: Supple, No JVD Lungs: Normal air movement, No rhonchi, No wheeze, on 2L of oxygen by nasal canula Cardiovascular: Regular rate, Regular Rhythm, Normal S1, Normal S2, No murmurs Abdomen: Soft, Non Tender, Non-Distended, No Hepato-splenomegaly Extremities: Capillary Refill Less than 3 Seconds, Edema - 1+ bilateral edema Skin: No rashes, No breakdown; 1+ bipedal edema; both legs wrapped in JOSEP bandage Neurological: Neuro grossly intact, Sensory exam intact to light touch and pain Psych/Mental Status: Normal Affect, Appropriate Plan is for discharge home today. Of note, patient was also started on carvedilol 3.125 mg twice daily and has labetalol was discontinued. He is continue taking his lisinopril in addition to the Lasix. Patient Problems: Active and Suspected Problems CHF (congestive heart failure) (Acute) Respiratory failure (Acute) - Physical Exam Vitals/I&O's: Vital Signs Temp Pulse Resp BP Pulse Ox 97.8 F 60 17 164/53 H 94 01/25/20 08:54 01/25/20 08:54 01/25/20 08:54 01/25/20 08:54 01/25/20 08:54 Oxygen Flow Rate (L/min) 2 Oxygen Delivery Method Nasal Cannula Weight: 246 lb 11.156 oz Body Mass Index (BMI) 38.0 Intake and Output for Last 24 Hours 01/23/20 01/24/20 01/25/20 23:59 23:59 23:59 Intake Total 680 / 1120 1100 / 1360 260 / 260 Output Total 700 / 1300 2300 / 2675 1025 / 1025 Balance -20 / -180 -1200 / -1315 -765 / -765 Laboratory Results 01/25/20 08:10: Sodium 144, Potassium 3.9, Chloride 107, Carbon Dioxide 35.0 H, Anion Gap 2 L, BUN 44 H, Creatinine 1.23, Estim Creat Clear Calc 48.63, Est GFR (MDRD) Af Amer 73, Est GFR (MDRD) Non-Af 60, BUN/Creatinine Ratio 35.8 H, Glucose 99, Calcium 9.6 Current Medications Acetaminophen (Acetaminophen 325 Mg Tablet) 650 mg PO Q6H PRN PRN PRN Reason: Pain Score 1-10/Temp > 100.7 F Albuterol Sulfate (Albuterol 2.5 Mg/3 Ml Vial.Neb.) 2.5 mg INHALATION Q2H PRN PRN PRN Reason: SOB/Wheezing Aspirin (Aspirin 81 Mg Tab.Chew) 81 mg PO DAILY@0800 [facility] Last Admin: 01/25/20 08:00 Dose: 81 mg Documented by: Atorvastatin Calcium (Atorvastatin Calcium 20 Mg Tablet) 20 mg PO QHS [facility] Last Admin: 01/24/20 21:53 Dose: 20 mg Documented by: Furosemide (Furosemide 40 Mg/4 Ml Vial) 40 mg IV DAILY [facility] Last Admin: 01/25/20 08:58 Dose: 40 mg Documented by: Heparin Sodium (Porcine) (Heparin Injection (Vial) 5,000 Unit/Ml Vial) 5,000 unit SC Q8 [facility] Last Admin: 01/25/20 06:01 Dose: 5,000 unit Documented by: Labetalol HCl (Labetalol 100 Mg Tablet) 300 mg PO BID [facility] Last Admin: 01/25/20 08:57 Dose: 300 mg Documented by: Lisinopril (Lisinopril 20 Mg Tablet) 20 mg PO DAILY [facility] Last Admin: 01/25/20 08:57 Dose: 20 mg Documented by: Nitroglycerin (Nitroglycerin (Inpatient Use) 0.4 Mg Tab.Subl) 0.4 mg SUBLINGUAL Q5M PRN PRN Reason: CARDIAC/CHEST PAIN Ondansetron HCl (Ondansetron 4 Mg/2 Ml Vial) 4 mg IV Q8H PRN PRN PRN Reason: NAUSEA/VOMITING Pantoprazole Sodium (Pantoprazole Sodium 20 Mg Tablet) 20 mg PO DAILY [facility] Last Admin: 01/25/20 08:00 Dose: 20 mg Documented by: Senna/Docusate Sodium (Senna/Docusate Sodium 1 Tablet) 2 tablet PO BID PRN PRN PRN Reason: Constipation Sodium Chloride (0.9% Saline Lock 10 Ml Syringe) 10 - 40 ml IV UD PRN PRN Reason: SALINE FLUSH Last Admin: 01/25/20 08:58 Dose: 20 ml Documented by: Discharge Diet: Low fat/ Low Cholesterol Discharge Activity: Return to Normal Activity Weight Bearing Status: Weight bearing as tolerated Call your doctor if you observe: Fever of 101 or Higher, Shortness of breath, Dizziness, Fainting spells, Swelling in the ankles, Chest pain, Increased palpitations (irregular heartbeat), - Home Medications: Medications to take at Discharge Acetaminophen [Tylenol Extra Strength] 500 mg PO BID 01/22/20 Amlodipine [Norvasc] 10 mg PO DAILY 01/22/20 Aspirin [Aspirin, Baby] 81 mg PO DAILY@0800 01/22/20 Lisinopril [Zestril] 20 mg PO BID 01/22/20 Naproxen Sodium [Aleve] 440 mg PO BID 01/22/20 Omeprazole 20 mg PO DAILY 01/22/20 Rosuvastatin Calcium [Crestor] 10 mg PO QHS 01/22/20 Carvedilol 3.125 mg PO BID #60 tab 01/25/20 Furosemide [Lasix] 40 mg PO DAILY #30 tab 01/25/20 Potassium Chloride [K-Dur] 20 meq PO DAILY #30 tab 01/25/20 Following Prescriptions Were Given to Patient: Carvedilol 3.125 mg PO BID #60 tab Transmission Status: [id number] Potassium Chloride [K-Dur] 20 meq PO DAILY #30 tab Transmission Status: [facility] by [id number] Furosemide [Lasix] 40 mg PO DAILY #30 tab Transmission Status: Re[facility] by [id number] Primary Care Physician: Bandar Goldsmith III, MD [Primary Care Provider] - Please follow up with your Primary Care Physician in: 1-2 weeks Please Follow Up With: Adonis Baker MD When: 2-3 weeks to establish care for heart failure Patient Instructions: Taking Medication to Control Heart Failure, Heart Failure: Tracking Your Weight, Heart Failure: Making Changes to Your Diet, Heart Failure: Evaluating Your Heart, Heart Failure: Medications to Help Your Heart, Heart Failure Disposition: Home Minutes spent on discharge:: 40 Patient Condition:: Stable Medical Necessity - Tobacco Use Smoking Status: Former smoker Tobacco Use: Non-smoker Meaningful Use Info Meaningful Use Diagnoses (Choose all that apply): CHF - CHF JOSEP/ARB ordered at discharge?: Yes Documented LVEF (%): 55 Inpatient E&M: [id number] Disch Hosp
--- NOTE | 2020-01-25 10:55 | CASEMGMT ---
LEXIS GRAHAM assessment: Face to Face with patient for initial transition planning/care coordination assessment. LEXIS GRAHAM introduced self and role at [facility], pt voices understanding and consents to assessment at this time. Pt is A/Ox4 at this time and answers all questions appropriately at this time. Pt is sitting up in chair in no distress at this time. Pt is currently on 2 liters nc at this time. Care providers, pharmacy, and demographics verified/updated at this time. Presentation: SOB past 2 weeks and worsened. Sat on ra in triage, 50's. 94% on nrb at this time Admitting dx: Hypoxia, Acute CHF PCP: Agus WINKLER Specialists: None currently Preferred Pharmacy: [facility] Insurance: AeR Prescription Benefit: AeMCR Living Will/HPOA: Pt states has LW/HPOA and is aware that they are not on file at [facility] at this time. Pt states his son, Dejan Lima, is HPOA. LNOK: Dejan Lima, son/HPOA Living Arrangements: Pt states lives with handicap whom he cares for in 1 story home and states no concerns at home at this time. Pt states is independent with ADL's. Pt states has sons that can help him at home if he needs anything. Transportation: Pt states drives self and states no transportation concerns at this time. DME/HHC: Pt states has the following DME: cane, walker, w/c, grab bars, and shower chair. Pt does qualify for home oxygen at this time and states would like [employer] for home oxygen set up at this time. [place] [facility] [place] call to Melissa at [facility] to notify of referral at this time, voices understanding. Pt states no hx of HHC or SNF in the past. Pt states no concerns with going home at time of discharge. Pt states is retired. Pt states does not smoke cigarettes or drink ETOH. Pt states no further concerns/needs at this time. CM to follow for any further discharge planning/needs. Advised pt to ask for CM if any further questions/concerns/needs arise, voices understanding. Pt Goal: Home Plan: [place]HAM
[2020-01-25 10:56] VITALS: O2SAT 85; O2SAT 92
--- NOTE | 2020-01-25 11:31 | PHA.DC.MC ---
Pharmacy Service has performed discharge medication reconciliation and counseling for this patient. The patient was counseled on the following discharge medications and changes in medications for homegoing were reviewed. 1. COREG 2. LASIX 3. K-DUR The Reason for Use, instructions for use, and potential side effects were reviewed for all new medications. The patient's questions regarding all of their medications were answered. The patient was able to verbally demonstrate an understanding of their discharge medications. Home Medications Acetaminophen [Tylenol Extra Strength] 500 mg PO BID 01/22/20 Amlodipine [Norvasc] 10 mg PO DAILY 01/22/20 Aspirin [Aspirin, Baby] 81 mg PO DAILY@0800 01/22/20 Lisinopril [Zestril] 20 mg PO BID 01/22/20 Naproxen Sodium [Aleve] 440 mg PO BID 01/22/20 Omeprazole 20 mg PO DAILY 01/22/20 Rosuvastatin Calcium [Crestor] 10 mg PO QHS 01/22/20 Carvedilol 3.125 mg PO BID #60 tab 01/25/20 Furosemide [Lasix] 40 mg PO DAILY #30 tab 01/25/20 Potassium Chloride [K-Dur] 20 meq PO DAILY #30 tab 01/25/20 The patient's discharge medication list was reviewed for discrepancies and discrepancies were resolved.
== END 2020-01-25 15:23 | disposition home or self-care (01) | DRG 291 ==
LOC: ED 13:25 → PCU 13:38
PROVIDERS: Family Medicine; Admitting Provider Internal Medicine; Emergency Provider Physician Assistant; PCP Family Medicine; Visit Provider Student in an Organized Health Care Education/Training Program
DX: I11.0 Hypertensive heart disease with heart failure (principal); J96.01 Acute respiratory failure with hypoxia; I50.31 Acute diastolic (congestive) heart failure; E66.01 Morbid (severe) obesity due to excess calories; Z66 Do not resuscitate; E78.5 Hyperlipidemia, unspecified; Z68.38 Body mass index [BMI] 38.0-38.9, adult; Z87.891 Personal history of nicotine dependence; K21.9 Gastro-esophageal reflux disease without esophagitis; R91.8 Other nonspecific abnormal finding of lung field; I27.20 Pulmonary hypertension, unspecified
CPT/HCPCS: 36415; 36600; 71045; 80048; 80053; 82803; 83880; 84484; 85025; 87635; 93005; 93306; 97161; 97165; 97802; 97803; 99251; 99285; Q9957; A4216; C8929; G0463; J1940; U0002

== ENCOUNTER 2020-03-11 14:46 | Outpatient (RCR) | payer MEDICARE, SELFPAY ==
[2020-01-22 14:16] VITALS: BMI 38.0
== END 2020-03-11 23:59 ==
LOC: IMMUN 14:46
PROVIDERS: PCP Family Medicine; Referring Provider Family Medicine; Visit Provider Family Medicine
DX: Z23 Encounter for immunization (principal)
CPT/HCPCS: 0011A; 0012A; 91301

== ENCOUNTER → 2020-05-11 11:14 | Outpatient (CLI) | payer MEDICARE, SELFPAY ==
[2020-04-27 10:08] VITALS: BMI 38.0
[2020-05-11 12:33] LABS: Anion Gap 1 (5-15); BUN 23 mg/dL (7-18); BUN/Creat Ratio 24.5 RATIO (10-20); Calcium,Total 9.9 mg/dL (8.5-10.1); Chloride 102 mmol/L (98-107); Creatinine, Serum 0.94 mg/dL (0.70-1.30); EST Glomerular Filtration Rate 82 mL/min (>60); Est Glom Filt Rate - Afr Amer 99 mL/min (>60); Glucose 93 mg/dL (74-106); Potassium 4.2 mmol/L (3.5-5.1); Sodium Level 142 mmol/L (136-145)
== END ==
PROVIDERS: PCP Family Medicine; Referring Provider Internal Medicine Cardiovascular Disease; Visit Provider Internal Medicine Cardiovascular Disease
DX: I11.0 Hypertensive heart disease with heart failure (principal); I50.32 Chronic diastolic (congestive) heart failure
CPT/HCPCS: 36415; 80048

== ENCOUNTER → 2020-05-31 09:27 | Outpatient (CLI) | payer MEDICARE, SELFPAY ==
[2020-04-27 10:08] VITALS: BMI 38.0
--- NOTE | 2020-05-31 10:00 | RAD_ITS ---
STUDY: X-RAY CHEST REASON FOR EXAM: Male, 80 years old. Edema, shortness of breath TECHNIQUE: PA and lateral views of the chest. COMPARISON: 01/22/2020 FINDINGS: Lungs are adequately inflated with interstitial prominence throughout suggesting chronic process however, superimposed edema cannot be excluded. Subtle left basilar effusion. There is moderate cardiac enlargement. Normal mediastinum and mishel. Normal visualized pulmonary arteries. Normal visualized aortic arch and descending thoracic aorta. Normal visualized thoracic spine. Normal visualized ribs, clavicles, and shoulders. There is no demonstrated abnormality of the visualized soft tissue structures of the upper abdomen. RAD/Chest PA and Lateral IMPRESSION: Cardiomegaly with interstitial edema and left basilar effusion Electronically Signed: Jerad Barraza DO at 0:09 EDT Tel , Service support ,
[2020-05-31 10:18] LABS: Hematocrit 41.9 % (40-54); Hemoglobin 12.4 g/dL (13.0-16.5); Mean Corp Hgb Conc 29.6 g/dL (32-36); Mean Corpuscular Hgb 27.1 pg (27.0-32.0); Mean Corpuscular Volume 91.7 fL (80-94); Mean Platelet Vol. 11.6 fl (6.2-12.0); Platelet Count 285 K/mm3 (150-450); RBC Distribution Width CV 15.6 % (11.6-14.6); RBC Distribution Width SD 51.9 fl (35.1-43.9); Red Blood Count 4.57 M/mm3 (4.6-6.2); White Blood Count 9.7 K/mm3 (4.4-11.0)
[2020-05-31 10:46] LABS: BNP,B-Type NATRIURETIC PEPTIDE 103.9 pg/mL (0-100)
[2020-05-31 11:03] LABS: Anion Gap 3 (5-15); BUN 23 mg/dL (7-18); BUN/Creat Ratio 25.5 RATIO (10-20); Calcium,Total 9.7 mg/dL (8.5-10.1); Chloride 99 mmol/L (98-107); EST Glomerular Filtration Rate 86 mL/min (>60); Est Glom Filt Rate - Afr Amer 104 mL/min (>60); Glucose 123 mg/dL (74-106); Sodium Level 140 mmol/L (136-145)
== END ==
PROVIDERS: PCP Family Medicine; Referring Provider Physician Assistant Medical; Visit Provider Physician Assistant Medical
DX: R60.9 Edema, unspecified (principal); R09.02 Hypoxemia; R06.00 Dyspnea, unspecified; I27.21 Secondary pulmonary arterial hypertension
CPT/HCPCS: 36415; 71046; 80048; 83880; 85027

== ENCOUNTER → 2020-06-09 07:17 | Outpatient (CLI) | payer MEDICARE, SELFPAY ==
[2020-06-02 08:28] VITALS: BMI 37.1
--- NOTE | 2020-06-09 07:21 | CT_ITS ---
STUDY: CT CHEST WITHOUT CONTRAST REASON FOR EXAM: Male, 80 years old. Smoking hx/pleural effusion. CHF. RADIATION DOSAGE (If Supplied By Facility): CTDIvol = ( 18.31 ) mGy, DLP = ( 562.88 ) mGycm TECHNIQUE: Transaxial imaging was performed without the administration of intravenous contrast material. Multiplanar coronal and sagittal images were reformatted. Individualized dose optimization techniques were used for this CT. COMPARISON: None. FINDINGS: Small benign-appearing bilateral axillary lymph nodes. Diffuse increased interstitial markings in both lungs with the subpleural blebs worse in the upper lobes. This is in keeping with the interstitial scarring. Tiny left pleural effusion. There is dense consolidation/infiltration in the superior segment of the left lower lobe. This may represent postobstructive pneumonitis. Radiographic follow-up is recommended. Underlying mass lesion cannot be excluded. Moderate sized pericardial effusion. There are calcifications of the coronary arteries. There are multiple small lymph nodes within the mediastinum, which are normal in size and morphology most compatible with reactive lymph hyperplasia. Normal hilar regions. Normal unenhanced pulmonary arteries. There is atherosclerotic calcification of the aortic arch with tortuosity and elongation of the aortic arch and descending thoracic aorta. There are multi-level degenerative changes of the thoracic spine. Increased kyphosis. There is no demonstrated abnormality of the visualized upper abdomen. CT/Chest without Contrast IMPRESSION: Dense consolidation/infiltration in the superior segment of the left lower lobe. This may represent post obstructive pneumonitis. Possible mass lesion. Radiographic follow-up is recommended. Diffuse interstitial fibrosis of both lungs worse in the upper lobes. Moderate sized pericardial effusion. Electronically Signed: Jeffy Sheehan MD at 9:31 EDT , Service support ,
== END ==
PROVIDERS: PCP Family Medicine; Referring Provider Physician Assistant Medical; Visit Provider Physician Assistant Medical
DX: J90 Pleural effusion, not elsewhere classified (principal)
CPT/HCPCS: 71250

== ENCOUNTER → 2020-06-13 10:13 | Outpatient (CLI) | payer MEDICARE, SELFPAY ==
[2020-06-02 08:28] VITALS: BMI 37.1
== END ==
PROVIDERS: PCP Family Medicine; Referring Provider Physician Assistant Medical; Visit Provider Physician Assistant Medical
DX: I31.3 Pericardial effusion (noninflammatory) (principal)
CPT/HCPCS: 93308; Q9957; A4216; C8924

== ENCOUNTER → 2020-06-14 10:43 | Outpatient (CLI) | payer MEDICARE, SELFPAY ==
[2020-06-14 06:07] VITALS: BMI 38.6
[2020-06-14 11:06] LABS: International Normalized Ratio 1.1; Prothrombin Time (Protime)PT. 13.4 SECONDS (11.7-14.9)
[2020-06-14 11:08] LABS: Partial Thromboplast Time 56.8 Seconds (24.1-36.2)
== END ==
PROVIDERS: PCP Family Medicine; Referring Provider Internal Medicine Critical Care Medicine; Visit Provider Internal Medicine Critical Care Medicine
DX: I50.32 Chronic diastolic (congestive) heart failure (principal)
CPT/HCPCS: 36415; 85610; 85730

== ENCOUNTER → 2020-06-17 06:34 | Outpatient (CLI) | payer MEDICARE, SELFPAY ==
[2020-06-14 06:07] VITALS: BMI 38.6
--- NOTE | 2020-06-18 08:55 | PFTCOMP ---
INTRODUCTION: The patient is an 80-year-old male that presents for pulmonary function studies secondary to a diagnosis of dyspnea. Respiratory therapy reports good patient effort. Bronchodilators were used during testing. INTERPRETATION: Forced expiration spirometry demonstrates no evidence of a large airways obstructive ventilatory defect. There was no significant response to aerosolized bronchodilators. Spirograms are of fair quality and plateau gradually. Body plus tomography was performed and revealed a decreased TLC to 3.3 L, 67% of predicted, indicative of a moderate restrictive ventilatory impairment. Diffusing capacity by single breath CO is symmetrically reduced to 54% of predicted. IMPRESSION: Moderate restrictive ventilatory impairment with symmetric reduction in diffusing capacity.
== END ==
PROVIDERS: PCP Family Medicine; Referring Provider Internal Medicine Critical Care Medicine; Visit Provider Internal Medicine Critical Care Medicine
DX: R06.00 Dyspnea, unspecified (principal); R09.02 Hypoxemia; R93.89 Abnormal findings on diagnostic imaging of other specified body structures
CPT/HCPCS: 94060; 94726; 94729

== ENCOUNTER 2020-06-22 11:27 | Day surgery (SDC) | payer MEDICARE, SELFPAY ==
[2020-06-14 06:07] VITALS: BMI 38.6
[2020-06-22] VITALS (7 sets, daily range): BP systolic 147–156; BP diastolic 51–66; PULSE 62–78; RESP 16; TEMP 36.6–37.6; O2SAT 92–100; BMI 36.9
--- NOTE | 2020-06-22 | LUNG_PTH ---
PATIENT: SAGAR REYES LOC: EN U#:[id number] AGE/SX: 80/M ROOM: RE06/22/[address]: Dr. Ar Lerner MD : 1940 BED: DIS: 06/22/2020 SPEC #: [id number] RECD: 06/22/20 13:55 STATUS: PHILIPPE DOUG #: [id number] KATHLEEN: 06/22/20 00:[address]: Ar Lerner DEPT: SURGICAL PATHOLOGY RECD BY: Samantha Douglass ENTERED: 06/23/20 10:13 SP TYPE: LUNG BX OTHR DR: Dr. Bandar Goldsmith III, MD Tissues: Lung, NOS Procedures: Surgery Specimen Level IV HEADER OPERATION: Bronchoscopy (MAC) PRE-OP DIAGNOSIS: Dyspnea, hypoxia, abnormal chest CT TISSUE SUBMITTED: Endobronchial biopsy superior subseg LLL MICROSCOPIC DIAGNOSIS Superior subsegment LLL, endobronchial biopsy: Non-small cell carcinoma, favor squamous cell carcinoma. See comment. FANTASMA:wilner 06/24/2020 COMMENT Immunohistochemistry ([id number]) supports the above diagnosis. Molecular studies on the tumor can be performed if clinically indicated. Please notify the laboratory if they are needed. MICROSCOPIC DESCRIPTION Slides are reviewed. GROSS DESCRIPTION Received in fixative is one container labeled with the patient's name and designated superior subsegment LLL biopsy. The specimen consists of multiple irregular fragments of light romero soft tissue that in aggregate measure 1 x 0.2 x 0.1 cm. The specimen is totally submitted in one cassette. / FANTASMA:wilner 06/23/20 TC:0 CPT: 56058
--- NOTE | 2020-06-22 | IMM_PTH ---
PATIENT: SAGAR REYES LOC: EN U#:[id number] AGE/SX: 80/M ROOM: RE06/22/[address]: Dr. Ar Lerner MD : 1940 BED: DIS: 06/22/2020 SPEC #: [id number] RECD: 06/24/20 11:57 STATUS: PHILIPPE REQ #: [id number] KATHLEEN: 06/22/20 00:[address]: Ar Lerner DEPT: IMMUNOHISTOCHEMISTRY RECD BY: Mirta Toledo ENTERED: 06/24/20 12:00 SP TYPE: IMMUNO OTHR DR: Dr. Bandar Goldsmith III, MD Tissues: Lung, NOS Procedures: RCC (add) NAPSIN A (add) CK20 (add) CK5-6 (add) CK7 (add) CK8 (add) HEP PAR (add) TTF1 (add) Pankeratin (initial) P40 (add) PSAP (add) PHYSICIAN & [address] [address] SPECIMEN INFORMATION: Tissue Source: Endobronchial biopsy superior subsegment LLL Clinical Info: Dyspnea, hypoxia, abnormal chest CT Specimen Number: [id number] CPT code: 40447, 07837 x10 METHODOLOGY: Deparaffinized sections of prefer/formalin-fixed tissue or PAP/DQ stained slides are incubated with monoclonal/polyclonal antibodies/oligonucleotide probes. Localization is made via biotin free immunoperoxidase method. Appropriate controls are performed and reacted as expected. Results on target cell population are indicated in the following table: RESULTS: ANTIBODY / CLONE RESULT AE1-3 (AE1/AE3/PCK26) positive CK7 (OV-TL12/30) positive CK8 (87nrvmC24) positive CK20 (KS20.8) negative TTF-1 (8G7G3/1) negative Napsin A (Rabbit Polyclonal) negative HepPar (OCh1E5) negative RCC (PN-15) negative PSAP (PASE/4LJ) negative CK5-6 (D5 & 1684) positive P40 (BC28) positive These tests were developed and their performance characteristics determined by [facility]. They may not have been cleared or approved by the U.S. Food and Drug Administration. The FDA has determined that such clearance or approval is not necessary. The above immunohistochemical/dualISH markers are ordered and reviewed by the Pathologist. INTERPRETATION: Superior subsegment LLL, endobronchial biopsy: Non-small cell carcinoma, favor squamous cell carcinoma. SJ:wilner 06/24/2020
--- NOTE | 2020-06-22 | FLU_PTH ---
PATIENT: SAGAR REYES LOC: EN U#:[id number] AGE/SX: 80/M ROOM: RE06/22/[address]: Dr. Ar Lerner MD : 1940 BED: DIS: 06/22/2020 SPEC #: [id number] RECD: 06/22/20 13:55 STATUS: PHILIPPE DOUG #: [id number] KATHLEEN: 06/22/20 00:[address]: Ar Lerner DEPT: CYTOLOGY RECD BY: Samantha Douglass ENTERED: 06/23/20 10:15 SP TYPE: Fluid OTHR DR: Dr. Bandar Goldsmith III, MD Tissues: A - Bronchus of left lower lobe B - Bronchus of left lower lobe C - Bronchus of left lower lobe Procedures: Special Stain Group II Surgery Specimen Level IV Cytospin Fluid Cytology Other HEADER OPERATION: Bronchoscopy (MAC) PRE-OP DIAGNOSIS: Dyspnea, hypoxia, abnormal chest CT TISSUE SUBMITTED: A ? Brushings LLL fluid, B ? Washings LLL, C ? LLL smears x3 DIAGNOSIS CYTOLOGY A. Brushings LLL fluid (cytospin and cell block): Negative for malignant cells. See comment. B. Washings LLL fluid (cytospin and cell block): Negative for malignant cells. See comment. C. LLL brushings (smears): Negative for malignant cells. See comment. SJ:wilner 06/24/2020 COMMENT B. Numerous organisms consistent with bacteria are also noted. Please also make reference to corresponding surgical specimen ([id number]) endobronchial biopsy, superior subsegment LLL with diagnosis of ?non-small cell carcinoma, favor squamous cell carcinoma.? CYTOLOGY STUDY Slides are reviewed. CYTOLOGY GROSS A - Received is a metallic endoscopic cytobrush with adherent minute fragments of romero-red tissue brush in 2 ml of clear red fluid and labeled with the patient's name and and designated per the requisition as brush. The material is dislodged from the brush and submitted for cytology preparation including cell block. B - Received is 15 ml of red cloudy fluid labeled with the patient's name and and designated per the requisition as LLL. Submitted for cytology preparation including cell block. C - Received are three smears labeled with the patient's name and designated per the requisition as LLL. Submitted for staining. / wilner 06/23/2020 TC:5 CPT: 68082 x2, 53846 x2, 80052
--- NOTE | 2020-06-22 07:00 | HP_ITS ---
Assessment and Plan Assessment and Plan (1) Dyspnea on minimal exertion: Status: Acute (2) Hypoxia: Status: Acute (3) Abnormal chest CT: Status: Acute Plan - Dr. Ar Lerner MD: Patient with multiple confounding issues leading to hypoxia at this time. Patient does have emphysematous changes noted on CT scan, so COPD would be a serious consideration. Patient also has an extensive history of congestive heart failure with hospitalizations. Patient has a pleural effusion and what appears to be a cutoff sign in the superior segment of the left lower lobe. Did discuss possible biopsy options including EBUS and bronchoscopy. After review the risks, benefits and alternatives, patient has elected for a regular bronchoscopy. Patient does not want to have general anesthesia unless I have to but does want to know what his obstruction is from. Patient was advised to increase oxygen as necessary to keep saturations greater than 90%. A pulmonary function test has been ordered for quantification and clarification of lung function. Patient will also have a walking oximetry. No new medications until further information is available. Obtain complete PFT and walking oximetry. Oxygen to keep saturations greater than 90%. Regular bronchoscopy to be scheduled. Associated labs have been ordered. Plan Details Follow Up: 1 Month ([facility]) HPI PLEURAL EFFUSIONS Chief Complaint: Low oxygen Details: Patient is an 80-year-old male, currently under the care of Dr. Goldsmith and Dr. Baker, who presents for evaluation secondary to progressive hypoxia and abnormal CT scan. Patient reports he has had multiple episodes of congestive heart failure and has been on supplemental oxygen following one of the hospitalizations. Patient checks his oxygen routinely and states he has been desaturating into the 60s with ambulation. Patient has been compliant with his cardiac meds, but feels it is not as controlled as before. Patient does report an extensive smoking history of 30+ pack years. Patient states he has since quit, but feels that this has made been contributing to his overall condition. Patient has never had a pulmonary function test or walking oximetry as an outpatient. Patient states he did have supplemental oxygen following the hospitalization, but has been managing it on his own. Patient does report a cough productive of clear to yellow sputum on a daily basis. Patient denies any wheezing or chest pain. Patient does have significant lower extremity edema at times, but does not correlate this to his worsening respiratory status. Patient states I got a lot of that swelling off following the last hospitalization, but my oxygen has been changed. Patient is not reporting any hemoptysis, fever, chills, nausea or vomiting. Review of systems otherwise negative from a constitutional, HEENT, respiratory, cardiovascular, GI, genitourinary, musculoskeletal, skin, neurologic, psychiatric and hematologic system unless stated above. Documentation reviewed prior to the office visit No primary care notes were available for review. Patient did have a CT of the chest that was personally reviewed with him dated 06/09/2020 showing diffuse increased interstitial markings with subpleural blebs and a moderate sized pericardial effusion and dense consolidation of the superior segment of the left lower lobe. Some concern for mass noted. Intake Vital Signs 06/14/20 06:07 06/14/20 09:57 Height 5 ft 4 in Weight: 102.058 kg BMI 38.6 BP 145/59 H Blood Pressure Location Rt brachial Position Sitting Respiration 18 Pulse 65 Pulse Source Monitor Temp 36.5 C L Temperature Source Tympanic Pulse Oximetry (%) 79 97 Oxygen Delivery Method nasal canula room air Oxygen Flow Rate (L/min) 2 3 Intake Visit Reasons: PLEURAL EFFUSIONS Allergies doxazosin [From Cardura] Allergy (Verified 06/14/20 09:46) Swelling rosuvastatin [From Crestor] Adverse Reaction (Verified 06/14/20 09:46) Pain in joints Medications acetaminophen 500 mg PO BID 01/22/20 [History Confirmed 06/14/20] aspirin 81 mg PO DAILY@0800 01/22/20 [History Confirmed 06/14/20] lisinopril 20 mg PO BID 01/22/20 [History Confirmed 06/14/20] omeprazole 20 mg PO DAILY 01/22/20 [History Confirmed 06/14/20] rosuvastatin 10 mg PO QHS 01/22/20 [History Confirmed 06/14/20] amlodipine 5 mg tablet 5 mg PO DAILY #90 tab 04/27/20 [Rx Confirmed 06/14/20] carvedilol 6.25 mg tablet 6.25 mg PO BID #60 tab 04/27/20 [Rx Confirmed 06/14/20] furosemide 40 mg tablet 40 mg PO BID #90 tab 04/27/20 [Rx Confirmed 06/14/20] naproxen sodium 220 mg capsule 220 mg PO BID cap 06/02/20 [History Confirmed 06/14/20] spironolactone 25 mg tablet 25 mg PO DAILY #30 tablet 06/02/20 [Rx Confirmed 06/14/20] [facility] Medical History (Updated 06/09/20 @ 17:34 by Shannon MCFARLAND PA) Anemia Chronic diastolic (congestive) heart failure Diverticulosis Essential (primary) hypertension GERD (gastroesophageal reflux disease) Hemorrhoids Hyperlipidemia Respiratory failure (01/2020) Secondary pulmonary arterial hypertension Stenosis of left carotid artery Surgical History History of left-sided carotid endarterectomy Family History Mother Cancer Social History (Updated 06/02/20 @ 10:22 by Shannon MCFARLAND PA) Smoking Status: Former smoker quit date: 02/11/89 pack-years: 50 how long ago did patient quit smokin + years ago alcohol intake: former substance use type: does not use caffeine: No Review of Systems Resp Respiratory: Yes as per HPI Exam Const Constitutional: Positive conversant, cooperative, in no acute respiratory distress, well developed, well nourished, good hygiene, obese, appears older than stated age and wearing supplemental oxygen; Negative ill appearing Head Head: Yes normocephalic, Yes atraumatic and No cyanosis of lips/distal nose Eyes Eye: Positive clear conjunctiva; Negative nystagmus, scleral abnormality or cataract present Ears Ear: Positive hearing normal and external ears normal; Negative hard of hearing Mouth Mouth: Positive no lesions and good dentition Mallampati Score: II: Mallampati Score Neck Neck: Positive normal visual inspection, full ROM and trachea midline; Negative lymphadenopathy or JVD Chest Wall Chest: Positive normal inspection of the chest and symmetric chest movement; Negative crepitus or tenderness Resp lung sounds: Positive diminished lung sounds diminished: Positive lower and left, dullness dullness: Yes lower and Yes left and normal expiratory time; Negative wheezes, wheeze present on forced exhalation, rhonchi, rales or use of accessory muscles Cardio Cardiac: Positive regular rate, regular rhythm, S1 normal, S2 normal and murmur (Grade 2 out of 6 systolic ejection murmur at the left sternal border); Negative rub or gallop GI GI: Positive normal to inspection, normal bowel sounds and obese; Negative distended, ascites or epigastric tenderness Genitourinary: Positive deferred Musc Musculoskeletal: Positive in a wheelchair; Negative kyphosis or scoliosis Skin Pulmonary Skin Exam: Positive intact; Negative lesion, rash, ulcers or erythema Pulses Pulse: Yes radial pulses present Extremities Extremities: Yes capillary refill normal, No clubbing, No cyanosis and Yes edema (1+) Neuro Neurologic: Yes no focal neuro deficits, Yes conversant, Yes cooperative, Yes normal cognition, Yes normal coordination, Yes normal concentration and Yes understands questions Lymph Lymphatic: No lymphadenopathy Psych Appearance: Positive grossly normal Mental Status: Positive mental status grossly normal Mood: Positive congruent mood Affect: Positive normal affect Coding Level of Care Code Off vis,new,level 5 Diagnoses Dyspnea on minimal exertion R06.00 Hypoxia [address]09[address] R93.89
[2020-06-22] MEDS: Lactated Ringers 1,000 ML 75 ML IV (12:30)
[2020-06-22 14:01] LABS: Cytology, Body Fluid / CSF SEE PATHOLOGY REPORT
[2020-06-22 14:03] LABS: Cytology, Body Fluid / CSF SEE PATHOLOGY REPORT
--- NOTE | 2020-06-22 14:27 | OP.BRONCH_ITS ---
Patient Name: Nghia Lima Procedure Date: 06/22/2020 12:27 PM Date of : 1940 Age: 80 Procedure: Bronchoscopy Indications: Abnormal CT scan of chest, Left lower lobe mass Providers: Ar Lerner MD Referring MD: Bandar Goldsmith Iii Medicines: See the Anesthesia note for documentation of the administered medications Complications: No immediate complications Procedure: Pre-Anesthesia Assessment: - A History and Physical has been performed. The patient's medications, allergies and sensitivities have been reviewed. - The risks and benefits of the procedure and the sedation options and risks were discussed with the patient. All questions were answered and informed consent was obtained. - Monitored anesthesia care under the supervision of an financial reporting director was determined to be medically necessary for this procedure based on age 65 or older and ASA Grade III-V. After I obtained informed consent, the scope was passed under direct vision. Throughout the procedure, the patient's blood pressure, pulse, and oxygen saturations were monitored continuously. The bronchoscope was introduced through the mouth and advanced to the tracheobronchial tree. The patient tolerated the procedure well. The procedure was accomplished with moderate difficulty due to the patient's respiratory instability (hypoxia). Successful completion of the procedure was aided by increasing supplemental oxygen, performing the maneuvers documented (below) in this report and frequent breaks out of the airway with increased PEEP per financial reporting director. The patient tolerated the procedure. Findings: The nasopharynx/oropharynx appears normal. The larynx appears normal. The vocal cords appear normal. The subglottic space is normal. The trachea is of normal caliber. The sarah is sharp. The tracheobronchial tree of the left lung was examined to at least the first subsegmental level. Bronchial mucosa and anatomy in the left lung are normal; there are no endobronchial lesions, and no secretions. The nasopharynx/oropharynx appears normal. The larynx appears normal. The vocal cords appear normal. The subglottic space is normal. The trachea is of normal caliber. The sarah is sharp. The tracheobronchial tree of the right lung was examined to at least the first subsegmental level. Bronchial mucosa and anatomy in the right lung are normal; there are no endobronchial lesions, and no secretions. Endobronchial biopsies of a site on chest imaging were performed in the superior segment of the left lower lobe using a forceps and sent for histopathology examination. Five samples were obtained. Brushings of an Area of interest on chest imaging were obtained in the superior segment of the left lower lobe with a cytology brush and sent for routine cytology. One sample was obtained. Impression: - Abnormal CT scan of chest - Left lower lobe mass - The airway examination of the left lung was normal. - The airway examination of the right lung was normal. - An endobronchial biopsy was performed. - Brushings were obtained. Recommendation: - The patient will be observed post-procedure, until all discharge criteria are met. - Await biopsy and brushing results. - Patient has a contact number available for emergencies. The signs and symptoms of potential delayed complications were discussed with the patient. Return to normal activities tomorrow. Written discharge instructions were provided to the patient. Procedure Code(s): --- Professional --- 17972, Bronchoscopy, rigid or flexible, including fluoroscopic guidance, when performed; with bronchial or endobronchial biopsy(s), single or multiple sites 98046, Bronchoscopy, rigid or flexible, including fluoroscopic guidance, when performed; with brushing or protected brushings Diagnosis Code(s): --- Professional --- R91.8, Other nonspecific abnormal finding of lung field R93.8, Abnormal findings on diagnostic imaging of other specified body structures CPT copyright 2017 [employer]. All rights reserved. The codes documented in this report are preliminary and upon analysis or research safety inspector review may be revised to meet current compliance requirements. MD Ar Washington MD 06/22/2020 2:26:57 PM This report has been signed electronically. Number of Addenda: 0 Note Initiated On: 06/22/2020 12:27 PM
[2020-06-22 14:34] LABS: Appearance/Body Fluid SL CLDY; Color/Body Fluid SLIGHTLY PINK; Source- Body Fluid BRONCHIAL LAVAGE
[2020-06-22 14:35] LABS: Appearance/Body Fluid CLOUDY; Color/Body Fluid RED
[2020-06-22 14:58] LABS: Red Cell Count/Body Fluid 2322 /mm3
[2020-06-22 14:59] LABS: White Blood Count/Body Fluid 63 /mm3
[2020-06-22 15:20] LABS: Body Fluid QC Type(s) BF1Q; Lymphocytes 21 %; Monocytes 5 %; Neutrophil (Segs) 5 %; Other Cell Type/BF 69 %
[2020-06-22 15:35] LABS: Lymphocytes 23 %; Monocytes 3 %; Neutrophil (Segs) 11 %; Other Cell Type/BF 63 %
[2020-06-22 15:39] LABS: Red Cell Count/Body Fluid 594 /mm3
[2020-06-22 15:40] LABS: Body Fluid QC Type(s) BF1Q; White Blood Count/Body Fluid 86 /mm3
[2020-06-23 14:10] LABS: Pathologist Comment/Body Fluid Reviewed
== END 2020-06-22 14:42 ==
LOC: EN 11:31 → AC 11:36
PROVIDERS: PCP Family Medicine; Referring Provider Family Medicine; Visit Provider Internal Medicine Critical Care Medicine
PROC: 0BJ08ZZ Inspection of Tracheobronchial Tree, Via Natural or Artificial Opening Endoscopic (ICD-10-PCS; CPT 31622; principal; 2020-06-22 12:45)
DX: R91.8 Other nonspecific abnormal finding of lung field (principal); R05 Cough; E78.5 Hyperlipidemia, unspecified; I50.32 Chronic diastolic (congestive) heart failure; Z87.891 Personal history of nicotine dependence; R09.02 Hypoxemia
CPT/HCPCS: 31623; 31625; 88108; 88161; 88305; 88313; 88341; 88342; 89050; J7120; J2405

== ENCOUNTER → 2020-06-24 12:11 | Outpatient (CLI) | payer MEDICARE, SELFPAY ==
[2020-06-14 06:07] VITALS: BMI 38.6
[2020-06-22 12:15] VITALS: BMI 36.9
[2020-06-24 12:48] VITALS: PULSE 64; PULSE 72; PULSE 75; PULSE 84; PULSE 85; PULSE 87; PULSE 94; PULSE 95; O2SAT 81; O2SAT 82; O2SAT 87; O2SAT 89; O2SAT 90; O2SAT 91; O2SAT 93; O2SAT 96
--- NOTE | 2020-06-24 12:56 | CPS ---
Patient came to testing on 3 lpm pulse dose. Patient stated that he wears 2-4 lpm continuous at home but wears 3 lpm pulse dose when out of the house. SpO2 while still on 3 lpm pulse dose was 83%. Turned patient to 2 lpm continuous while sitting, SpO2 96% before walk. Started testing on 2 lpm continuous. At the 1 minute bryan patient was 87%, turned O2 up to 4 lpm continuous. Patient did not want to take a long break as he stated he was still feeling good. SpO2 92% when starting again. At 3rd minute SpO2 81%, patient wanted to sit at this time as well, took patient 3+ minutes for SpO2 to fully recover. Patient stated that his SOB was severe but that did not take as long to recover as his SpO2 did. SpO2 recovered to mid 90's and he was able to walk until the 6th minute when SpO2 was 82% on 4 lpm O2.
--- NOTE | 2020-06-24 14:46 | PCM.PSN.6M ---
PSN 6 Minute Walk Test 6 Minute Walk Test 6 Minute Walk Test: 6 Minute Walk Test PSN:6-Minute Walk Test Start: 06/24/20 12:48 Freq: Status: Active Protocol: [id number].6MINW Document 06/24/20 12:48 LUL (Rec: 06/24/20 13:04 [place] [id number]) 6 Minute Walk Test Date Performed 06/24/20 Time Performed 12:30 Height 5 ft 4 in Weight: 102.512 kg Weight in Pounds 226.[address]: Ar Lerner Assistive device used: None Pre-test Oxygen Flow Rate (L/min) (L/min) 2 Oxygen Delivery Method Nasal Cannula Pulse Ox (%) 96 Pulse Rate (60-100 beats/min) 64 Dyspnea Efren Scale (0-10) 0 Exertion Efren Scale (6-20) 6 1st minute Oxygen Flow Rate (L/min) (L/min) 2 Oxygen Delivery Method Nasal Cannula Pulse Ox (%) 87 Pulse Rate (60-100 beats/min) 84 2nd minute Oxygen Flow Rate (L/min) (L/min) 4 Oxygen Delivery Method Nasal Cannula Pulse Ox (%) 90 Pulse Rate (60-100 beats/min) 87 3rd minute Oxygen Flow Rate (L/min) (L/min) 4 Oxygen Delivery Method Nasal Cannula Pulse Ox (%) 81 Pulse Rate (60-100 beats/min) 94 4th minute Oxygen Flow Rate (L/min) (L/min) 4 Oxygen Delivery Method Nasal Cannula Pulse Ox (%) 91 Pulse Rate (60-100 beats/min) 75 5th minute Oxygen Flow Rate (L/min) (L/min) 4 Oxygen Delivery Method Nasal Cannula Pulse Ox (%) 89 Pulse Rate (60-100 beats/min) 85 6th minute Oxygen Flow Rate (L/min) (L/min) 4 Oxygen Delivery Method Nasal Cannula Pulse Ox (%) 82 Pulse Rate (60-100 beats/min) 95 Dyspnea Efren Scale (0-10) 5 Exertion Efren Scale (6-20) 12 Post-test Oxygen Flow Rate (L/min) (L/min) 4 Oxygen Delivery Method Nasal Cannula Pulse Ox (%) 93 Pulse Rate (60-100 beats/min) 72 Full Laps Walked 9 Partial Lap, Number of Tiles Walked 0 Total Distance Walked (ft) 531 06/24/20 12:56 Cardiopulmonary Services by Marleen Liu Patient came to testing on 3 lpm pulse dose. Patient stated that he wears 2-4 lpm continuous at home but wears 3 lpm pulse dose when out of the house. SpO2 while still on 3 lpm pulse dose was 83%. Turned patient to 2 lpm continuous while sitting, SpO2 96% before walk. Started testing on 2 lpm continuous. At the 1 minute bryan patient was 87%, turned O2 up to 4 lpm continuous. Patient did not want to take a long break as he stated he was still feeling good. SpO2 92% when starting again. At 3rd minute SpO2 81%, patient wanted to sit at this time as well, took patient 3+ minutes for SpO2 to fully recover. Patient stated that his SOB was severe but that did not take as long to recover as his SpO2 did. SpO2 recovered to mid 90's and he was able to walk until the 6th minute when SpO2 was 82% on 4 lpm O2. Initialized on 06/24/20 12:56 - END OF NOTE Interpretation Interpretation: Oxygen saturation was 83% on 3 L pulse dose. Patient was placed to 2 L continuous with improvement to 96%. However, patient desaturated in the first minute to 87%. The patient was placed on 4 L continuous and still desaturated as low as 81%. No significant tachycardia was noted. These findings are consistent with a respiratory limitation exercise tolerance. In total, the patient traveled 531 feet over the course of 6 minutes with the assistance of a 3-minute break. Recommendations Recommendations: The patient requires 2 L continuous flow at rest and at least 4 L nasal cannula with exertion.
== END ==
PROVIDERS: PCP Family Medicine; Referring Provider Internal Medicine Critical Care Medicine; Visit Provider Internal Medicine Critical Care Medicine
DX: R93.89 Abnormal findings on diagnostic imaging of other specified body structures (principal); R09.02 Hypoxemia; R06.00 Dyspnea, unspecified
CPT/HCPCS: 94618

== ENCOUNTER → 2020-07-19 15:12 | Outpatient (CLI) | payer MEDICARE, SELFPAY ==
[2020-07-06 10:28] VITALS: BMI 34.8
--- NOTE | 2020-07-19 15:13 | MRI_ITS ---
We are attempting to reach an attending provider to discuss findings. An addendum with communication details will be sent when the communication is complete. HISTORY: INITIAL STAGING NSCLC EXAMINATION: MR Brain WO/W Contrast TECHNIQUE: Multiplanar and multisequence MR images of the brain were obtained with and without IV gadolinium. IV Contrast dosage and agent: 20ml Dotarem COMPARISON: Brain MRI 11/19/2006 FINDINGS: BRAIN PARENCHYMA: No MRI evidence of hemorrhage. No evidence of acute infarct. 13 mm ring-enhancing lesion in the left posterior parietal lobe with extensive adjacent vasogenic edema. Central and cortical involutional changes are noted. There is increased T2 and FLAIR signal abnormality in the periventricular white matter. There is preservation of the [place]/white matter interface. Normal sella turcica, pituitary gland, infundibular stalk, optic chiasm and hypothalamus. The internal auditory canals are patent. Posterior fossa structures are unremarkable. CSF SPACES: Appropriate for age. No hydrocephalus. Basal cisterns are patent. VASCULAR SYSTEM: Normal flow voids in the major intracranial circulation. CALVARIUM, SKULL BASE, PARANASAL SINUSES AND MASTOID AIR CELLS: Clear. No discrete lytic or blastic abnormalities. ORBITS: Both globes, extraocular muscles, optic nerves and retrobulbar fat appear unremarkable. MRI/Brain W/WO Contrast IMPRESSION: 13 mm ring-enhancing lesion in the left posterior parietal lobe highly suspicious for metastasis. Chronic involutional and white matter changes. at 1734 Reported and signed by: Iain Epperson MD Electronically Signed: Iain Epperson MD at 17:32 EDT Tel , Service support ,
== END ==
PROVIDERS: PCP Family Medicine; Referring Provider Internal Medicine Hematology & Oncology; Visit Provider Internal Medicine Hematology & Oncology
DX: C34.90 Malignant neoplasm of unspecified part of unspecified bronchus or lung (principal)
CPT/HCPCS: 70553; 78815; A9552; A9575; A4216

== ENCOUNTER 2020-09-30 09:06 | Inpatient (IN) | payer MEDICARE, SELFPAY ==
[2020-09-30] VITALS (12 sets, daily range): BP systolic 119–150; BP diastolic 40–77; PULSE 58–88; RESP 18–25; TEMP 36.4–37.6; O2SAT 93–100; BMI 36.3; BMI 31.5
--- NOTE | 2020-09-30 09:15 | EKG12_ITS ---
Test Reason : SOB Blood Pressure : / mmHG Vent. Rate : 066 BPM Atrial Rate : 066 BPM P-R Int : 140 ms QRS Dur : 086 ms QT Int : 390 ms P-R-T Axes : 010 -22 012 degrees QTc Int : 408 ms Normal sinus rhythm Normal ECG Confirmed by ELTON DAVIS, DIANE ([id number]), proposal editor MARIA A NG ([id number]) on 10/03/2020 1:29:16 PM Referred By: NANO Confirmed By:GISSELLE CONDE MD
--- NOTE | 2020-09-30 09:16 | EDS_ITS ---
HPI History of Present Illness Chief Complaint: Shortness of Breath Informant: patient Onset/Context/Timing Onset: Weeks Timing: Continuous Current Severity: Mild Maximum Severity: Mild Associated Symptoms cough; Negative for sore throat Chest Pain: Positive for None Narrative Narrative: 80-year-old maleNo history of cancer with bone and brain metastases. States he was vaccinated for Covid. Patient states that has been short of breath for 3 weeks. Mild cough nonproductive. No chest pain. No hemoptysis. He denies any history of DVT or PE. He denies any recent hospitalization. Denies any melena. He is normally on oxygen for COPD states he is need to increase that. He does have a history of CHF. Denies any leg pain or worse swelling. PE Risk Factors: Positive for Cancer and Recent immobilization; Negative for OCP + Smoking + > 35, Prior DVT or PE, Recent surgery and Recent travel Prior similar symptoms: Yes Recent Illness/Hospitalization: No PFSH PFSH Medical History Back pain Bone metastasis Brain metastasis Chronic diastolic (congestive) heart failure COPD (chronic obstructive pulmonary disease) Diverticulosis Edema Emphysema, unspecified Essential (primary) hypertension Former smoker GERD (gastroesophageal reflux disease) Hemorrhoids Hiatal hernia History of alcohol use History of fatty infiltration of liver Hyperlipidemia Kidney stones 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 On home oxygen therapy Respiratory failure (01/2020) Restless legs Secondary pulmonary arterial hypertension Shortness of breath on exertion Stenosis of left carotid artery Wears glasses Home Medications acetaminophen 500 mg PO BID 01/22/20 [History Last Taken 01/22/20] aspirin 81 mg PO QHS 01/22/20 [History Last Taken 06/16/20] lisinopril 20 mg PO BID 01/22/20 [History Last Taken 06/22/20 900] omeprazole 20 mg PO QHS 01/22/20 [History Last Taken 01/22/20] rosuvastatin 10 mg PO QHS 01/22/20 [History Last Taken 01/21/20] naproxen sodium 220 mg capsule 220 mg PO BID cap 06/02/20 [History Last Taken Unknown] spironolactone 25 mg tablet 25 mg PO DAILY #30 tablet 06/02/20 [Rx Last Taken Unknown] amlodipine 5 mg PO QHS 06/20/20 [History Last Taken Unknown] dexamethasone 4 mg PO 4X/DAY #60 tab 07/19/20 [Rx Last Taken Unknown] carvedilol 6.25 mg tablet 6.25 mg PO BID #60 tab 07/21/20 [Rx Last Taken Unknown] furosemide 40 mg tablet 40 mg PO BID #90 tab 08/17/20 [Rx Last Taken Unknown] Allergy/AdvReac Type Severity Reaction Status Date / Time doxazosin [From Cardura] Allergy Mild Chest Verified 09/30/20 09:08 tightness Kijompj-Lix-Hoo Reductase AdvReac Severe JOINT PAIN Verified 09/30/20 09:08 Inhibitor Family History Mother Cancer Brother Cancer prostate Surgical History History of esophagogastroduodenoscopy (EGD) History of left-sided carotid endarterectomy Hx of colonoscopy Social History Smoking Status: Former smoker quit date: 02/11/89 pack-years: 50 how long ago did patient quit smokin + years ago alcohol intake: former substance use type: does not use caffeine: No ROS ROS ED ROS Narrative Shortness of breath. Review of Systems ROS Unobtainable: Denies due to encephalopathy Constitutional Constitutional ED: Denies chills or fever(s) Eyes Eyes: Denies change in vision ENT ENT ED: Denies ear pain or sore throat Cardiovascular Cardiovascular: Denies chest pain or palpitations Respiratory/Chest Respiratory/Chest: Reports cough and dyspnea; Denies sputum Gastrointestinal Gastrointestinal: Denies abdominal pain, constipation, diarrhea, melena, nausea or vomiting Genitourinary Genitourinary ED: Denies dysuria Musculoskeletal Musculoskeletal: Denies myalgias Integumentary Denies rash Neurologic Neurologic: Denies headache(s) Psychiatric Psychiatric: Denies depression Endocrine Endocrinology: Denies polyuria Hematologic/Lymphatic Hematologic/Lymphatic: Denies easy bruising Allergic/Immunologic Allergic/Immunologic ED: Denies urticaria EXAM Physical Exam Narrative Exam Narrative: 80-year-old male lying in bed. Vital signs are stable on nonrebreather is 99%. No hypoxia on oxygen. Temperature 992. He does not look septic or toxic he is in no distress. HEENT exam unremarkable. Neck nontender no JVD. Lungs clear to auscultation bilaterally. Heart regular rhythm rate about 70 no murmur. Abdomen soft nontender. Moving all 4 extremities. Calves are nontender without edema. Neurologically is awake and alert. Answering questions. Moving all 4 extremities. Const Vital Signs: 09/30/20 09:08 09/30/20 09:11 09/30/20 09:26 Temperature 99.2 F H 99.2 F H Temperature Source Axillary Axillary Pulse Rate 67 67 Respiratory Rate 21 H 21 H Respiratory Effort Short of Breath Labored Blood Pressure 124/70 H 124/70 H Blood Pressure Mean 88 88 Pulse Ox 99 99 98 Oxygen Delivery Method Non-Rebreather Non-Rebreather Non-Rebreather Oxygen Flow Rate (L/min) 15 09/30/20 10:11 Temperature 99 F Temperature Source Temporal Pulse Rate 60 Respiratory Rate 25 H Respiratory Effort Blood Pressure 129/71 H Blood Pressure Mean 90 Pulse Ox 97 Oxygen Delivery Method Non-Rebreather Oxygen Flow Rate (L/min) Positive well nourished and well developed; Negative for unkempt General Appearance ED: well developed and NAD; Negative for unkempt HEENT Reports moist mucous membranes atraumatic; Negative for trauma or tenderness Eyes PERRL and EOMs intact bilaterally Neck no lymphadenopathy, supple, no meningeal signs and no JVD General: Negative for tenderness Resp normal respiratory effort and clear to auscultation bilaterally Auscultation: Negative for rales, rhonchi or wheezes Cardio regular rate, regular rhythm, S1 normal heart sound, S2 normal heart sound and no murmurs GI non-tender, non-distended and no masses Auscultation: normoactive bowel sounds Palpation: soft; Negative for tender, guarding or rebound tenderness present Extremity normal to inspection General Extremety ED: Negative for edema or tenderness General Extremity: Negative for edema Neuro oriented x3 Sensorium / Orientation: alert, oriented to person, oriented to place and oriented to time; Negative for lethargic or stuporous Psych mental status grossly normal Appearance: Negative for unkempt Thought Process: normal thought process Skin Lesions: no lesions Rashes: no rashes MDM MDM MDM Narrative Medical decision making narrative: 80-year-old male with cancer with metastases. Reported COPD on chronic oxygen. Complaining of shortness of breath. Differential would include pneumonia, Covid, COPD, PE, cardiac versus other etiologies. These are being pursued. I do not hear any wheezing, rales or rhonchi at this time. Repeat exam at 11:14 AM no change. I went over all test results with the patient and his son. His CAT scan of his chest shows pneumonia, pulmonary emboli and lung mass. He will be started on IV antibiotics and I will discuss with the hospitalist anticoagulation. Admission pending. Lab Data Attestation: I reviewed the patient's lab results. Lab results narrative: CBC shows an elevated white count of 17.4. Hemoglobin 9.9. D-dimer is elevated 4.31. Electrolytes show a anion gap of 3. Creatinine of 1. High-sensitivity troponins elevated at 118. Covid negative. Labs: Laboratory Results - last 24 hr 09/30/20 09/30/20 09/30/20 08:53 08:53 09:25 WBC 17.4 H RBC 3.40 L Hgb 9.9 L Hct 32.1 L MCV 94.4 H MCH 29.1 MCHC 30.8 L RDW Std Deviation 63.1 H RDW Coeff of Kristal 18.1 H Plt Count 407 MPV 11.0 Immature Gran % (Auto) 2.800 H Neut % (Auto) 84.7 H Lymph % (Auto) 2.9 L [place] % (Auto) 8.5 Eos % (Auto) 0.7 Baso % (Auto) 0.4 Absolute Neuts (auto) 14.7 H Absolute Lymphs (auto) 0.51 L Nucleated RBC % 0.2 D-Dimer Quant (PE/DVT) 4.31 H* Sodium 138 Potassium 4.6 Chloride 101 Carbon Dioxide 34.0 H Anion Gap 3 L BUN 33 H Creatinine 1.03 Estim Creat Clear Calc 50.76 Est GFR (MDRD) Af Amer 89 Est GFR (MDRD) Non-Af 74 BUN/Creatinine Ratio 32.0 H Glucose 96 Calcium 11.3 H Troponin I High Sens 118 H* Radiography Chest X-Ray - ED: 1 View, Read by ED Physician, Heart, Lungs, Mediastinum, Bony Structures and Chronic Changes Diagnostic Testing: Radiology Impression Chest X-Ray 09/30/20 09:50 IMPRESSION: Persistent bilateral interstitial changes with areas of confluence suggestive of a mild degree of CHF superimposed on chronic scarring. Electronically Signed: Jeffy Sheehan MD at 10:30 EDT , Service support , Chest CTA 09/30/20 10:14 IMPRESSION: Pulmonary emboli in the left lower lobe. Since prior study, there has been progressive increase in size of the left lower lobe mass/infiltration central necrosis. Diffuse bilateral pulmonary scarring with superimposed patchy infiltrates in the right upper lobe. Pericardial effusion. Electronically Signed: Jeffy Sheehan MD at 11:06 EDT , Service support , Portable 1 view chest x-ray interpreted by myself shows bilateral upper and lower lung peripheral densities that could be infiltrate versus metastases versus other etiology. With an elevated D-dimer and a creatinine of 1 I will obtain a CTA of his chest. Rhythm Strip Rhythm Strip: Sinus Rhythm Rate: 66 Ectopy: None EKG Initial EKG: Attestation: I personally reviewed and interpreted this EKG as follows: Interpretation: Sinus Rhythm and No Acute Injury Pattern Comments: Normal sinus rhythm rate of 66 no acute signs of MT nor ischemia. Discharge Plan Triage Chief Complaint: Shortness of Breath ED Provider: Matt Arguello Dx/Rx/DC Orders Clinical Impression: Pneumonia, Hypoxia, Pulmonary emboli, Cancer with pulmonary metastases, History of COPD Prescriptions: No Action spironolactone [Aldactone] 25 mg tablet 25 mg PO DAILY Qty: 30 RF: 11 lisinopril 20 MG tablet 20 mg PO BID RF: 0 acetaminophen 500 MG tablet 500 mg PO BID RF: 0 omeprazole 20 MG capsule,delayed release(DR/EC) 20 mg PO QHS RF: 0 aspirin 81 MG tablet,chewable 81 mg PO QHS RF: 0 rosuvastatin 10 MG tablet 10 mg PO QHS RF: 0 naproxen sodium 220 mg capsule 220 mg PO BID RF: 0 amlodipine 5 mg tablet 5 mg PO QHS RF: 0 dexamethasone 4 MG tablet 4 mg PO 4X/DAY Qty: 60 RF: 1 carvedilol 6.25 mg tablet 6.25 mg PO BID Qty: 60 RF: 3 furosemide 40 mg tablet 40 mg PO BID Qty: 90 RF: 3 Primary Care Provider: CeBandar martel III Referrals: Bandar Goldsmith III, MD [Primary Care Provider] - Disposition Disposition: Acute Care [facility]
[2020-09-30 09:23] LABS: Absolute Lymphocyte Count 0.51 X10^3/uL (0.83-4.51); Absolute Neutrophil Count 14.7 X10^3/uL (2.0-7.7); Basophil# 0.07 X10^3/uL; Basophil% 0.4 % (0-1); Eosinophil# 0.12 X10^3/uL; Eosinophils% 0.7 % (0-5); Hematocrit 32.1 % (40-54); Hemoglobin 9.9 g/dL (13.0-16.5); Lymphocyte # 0.51 X10^3/ul (0.83-4.51); Lymphocyte % 2.9 % (19-41); Mean Corp Hgb Conc 30.8 g/dL (32-36); Mean Corpuscular Hgb 29.1 pg (27.0-32.0); Mean Corpuscular Volume 94.4 fL (80-94); Monocyte# 1.47 X10^3/uL; Monocyte% 8.5 % (0-10); NRBC Flagged by Analyzer 0.2 % (0-5); Neutrophil % 84.7 % (47-70); POSITIVE DIFFERENTIAL YES; Platelet Count 407 K/mm3 (150-450); RBC Distribution Width CV 18.1 % (11.6-14.6); RBC Distribution Width SD 63.1 fl (35.1-43.9); White Blood Count 17.4 K/mm3 (4.4-11.0)
[2020-09-30 09:28] LABS: Differential Indicated SCAN CRITERIA MET
--- NOTE | 2020-09-30 09:50 | RAD_ITS ---
STUDY: X-RAY CHEST REASON FOR EXAM: Male, 80 years old. Chest pain TECHNIQUE: Single AP portable view of the chest. COMPARISON: Comparison is made with prior examination dated on 05/31/2020. FINDINGS: EKG electrodes are seen. Once again, there is diffuse increased interstitial markings with areas of confluence worse in the right hemithorax. This may represent chronic scarring with a mild degree of superimposed CHF. Stable blunting of both constraint angles more prominent on the left side. There is mild cardiac enlargement. Normal mediastinum and mishel. Normal visualized pulmonary arteries. Normal visualized aortic arch and descending thoracic aorta. There are diffuse degenerative changes of the visualized thoracic spine. Normal visualized ribs, clavicles, and shoulders. There is no demonstrated abnormality of the visualized soft tissue structures of the upper abdomen. RAD/Chest 1 View (Portable) IMPRESSION: Persistent bilateral interstitial changes with areas of confluence suggestive of a mild degree of CHF superimposed on chronic scarring. Electronically Signed: Jeffy Sheehan MD at 10:30 EDT , Service support ,
[2020-09-30 09:55] LABS: Anion Gap 3 (5-15); BUN 33 mg/dL (7-18); Calcium,Total 11.3 mg/dL (8.5-10.1); Chloride 101 mmol/L (98-107); Creatinine, Serum 1.03 mg/dL (0.70-1.30); EST Glomerular Filtration Rate 74 mL/min (>60); Est Glom Filt Rate - Afr Amer 89 mL/min (>60); Estimated Creatinine Clearance 50.76 ml/min; Glucose 96 mg/dL (74-106); Potassium 4.6 mmol/L (3.5-5.1); Sodium Level 138 mmol/L (136-145); Troponin-I HS 118 pg/mL (3.0-78.0)
[2020-09-30 10:03] LABS: D-Dimer Quantitative (DVT/PE) 4.31 FEU/ug/m (0.27-0.49)
--- NOTE | 2020-09-30 10:14 | CT_ITS ---
STUDY: CTA CHEST REASON FOR EXAM: Male, 80 years old. Shortness of breath. Weakness. Metastatic lung cancer. Elevated d-dimer. RADIATION DOSAGE (If Supplied By Facility): CTDIvol = ( 12.62 ) mGy, DLP = ( 494.45 ) mGycm TECHNIQUE: The examination was performed with the intravenous administration of IV 100mL Isovue-370. Post-processing of the angiographic images was performed, with multiplanar reformation and 3D reconstruction. Individualized dose optimization techniques were used for this CT. COMPARISON: Comparison is made with prior study dated 06/09/2020. FINDINGS: Intraluminal filling defects are seen within the pulmonary branches of the left lower lobe pulmonary artery in keeping with pulmonary embolism. Normal thoracic aorta and visualized great vessels. There is no demonstrated aortic dissection. Small pericardial effusion. There are calcifications of the coronary arteries. Normal mediastinum. Normal hilar regions. Normal visualized trachea and bronchi. The lungs are well expanded. There is increasing heterogeneous infiltration in the left lower lobe with a focal area of air within it suggestive of possible necrotic mass. There has been increased infiltrate in the right upper lobe and right lobes superimposed on emphysematous changes and underlying scarring as compared to prior study. Small right pleural effusion with right basilar scarring. Normal chest wall structures. There are degenerative changes of thoracic spine. Increased kyphosis. Normal visualized upper abdomen. CT/CTA Chest W/WO Contrast IMPRESSION: Pulmonary emboli in the left lower lobe. Since prior study, there has been progressive increase in size of the left lower lobe mass/infiltration central necrosis. Diffuse bilateral pulmonary scarring with superimposed patchy infiltrates in the right upper lobe. Pericardial effusion. Electronically Signed: Jeffy Sheehan MD at 11:06 EDT , Service support ,
--- NOTE | 2020-09-30 11:26 | NURSING ---
PCU NAUMAH PNEUMONIA, PE'S, CA WITH METS, NO INTUBATION, HYPOXIA
[2020-09-30] MEDS: Ceftriaxone 1 GM/50 ML BAG IV (11:31)
[2020-09-30] MEDS: HEPARIN/D5w 25,000 UNITS 25,000 UNITS/250 ML IV.SOLN. 14 UNITS IV (11:46)
[2020-09-30] MEDS: Heparin Injection (Vial) 5,000 UNIT/ML VIAL 7500 UNIT IV (11:48)
[2020-09-30 11:55] LABS: International Normalized Ratio 1.2; Prothrombin Time (Protime)PT. 14.8 SECONDS (11.7-14.9)
[2020-09-30 11:56] LABS: Partial Thromboplast Time 49.4 Seconds (24.1-36.2)
[2020-09-30 12:29] LABS: BNP,B-Type NATRIURETIC PEPTIDE 347.9 pg/mL (0-100)
[2020-09-30] MEDS: 0.9% Normal Saline 1,000 ML 75 ML IV (12:54)
--- NOTE | 2020-09-30 13:39 | HP.PCM.HOS_ITS ---
Documented by User: Yvan MCFARLAND 09/30/20 14:57 HPI - General General Date of Admission: 09/30/20 Date of Service: 09/30/20 Chief Complaint: Fever HPI Narrative SAGAR REYES is an 80-year-old male who presents to the ED at [facility] on 09/30/2020 with a chief complaint of fever and malaise for the past 24 hours. Patient reports that yesterday evening he began to notice a fever began, and proceeded to sleep the fever off. Patient reports that when he woke up this morning his fever persisted and proceeded to the emergency department. Review of systems was positive for fever, cough and malaise. Patient denies chest pain, shortness of breath, hemoptysis, sputum production or lower extremity pain/swelling. Past medical history is significant for stage IV lung cancer with metastasis. Vital signs in the ED were significant for tachypnea at a rate of 20 to 25 breaths/min and hypoxia with the patient satting 75% on room air. CBC demonstrates a leukocytosis at 17,000 with neutrophilic predominance. D-dimer is elevated at 4.3. Initial high-sensitivity troponin is elevated at 118. BNP is mildly elevated at 347.9. With nonrebreather mask patient is satting 100% on 15 L/min. CT-A of the chest chest was significant for pulmonary emboli in the lower left lobe, as well as progressive increase in size of the left lower lobe mass/infiltrate and pericardial effusion. X-ray demonstrates persistent bilateral interstitial changes suggestive of either mild CHF or chronic scarring. Rapid Covid is negative. Patient was initiated on therapeutic heparin in the ED. 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 On home oxygen therapy Respiratory failure (01/2020) Restless legs Secondary pulmonary arterial hypertension Shortness of breath on exertion Stenosis of left carotid artery Wears glasses Home Medications acetaminophen 500 mg PO BID 01/22/20 [History Last Taken 01/22/20] aspirin 81 mg PO QHS 01/22/20 [History Last Taken 09/30/20 09:00] lisinopril 20 mg PO BID 01/22/20 [History Last Taken 09/30/20 09:00] omeprazole 20 mg PO QHS 01/22/20 [History Last Taken 09/29/20 21:00] rosuvastatin 10 mg PO QHS 01/22/20 [History Last Taken 09/29/20 21:00] amlodipine 5 mg PO QHS 06/20/20 [History Last Taken 09/29/20 21:00] carvedilol 6.25 mg PO BID 09/30/20 [History Last Taken 09/30/20 09:00] furosemide 40 mg PO BID 09/30/20 [History Last Taken 09/30/20 09:00] potassium chloride 20 meq PO DAILY 09/30/20 [History Last Taken 09/30/20 09:00] spironolactone [Aldactone] 25 mg PO DAILY 09/30/20 [History Last Taken 09/30/20 09:00] Allergy/AdvReac Type Severity Reaction Status Date / Time doxazosin [From Cardura] Allergy Mild Chest Verified 09/30/20 09:08 tightness Fcxgkaa-Jxg-Qso Reductase AdvReac Severe JOINT PAIN Verified 09/30/20 09:08 Inhibitor Family History Mother Cancer Uterine cancer Brother Cancer prostate Father History of psychiatric disorder Surgical History History of esophagogastroduodenoscopy (EGD) History of left-sided carotid endarterectomy Hx of colonoscopy Social History Smoking Status: Former smoker quit date: 02/11/89 pack-years: 50 how long ago did patient quit smokin + years ago alcohol intake: former substance use type: does not use caffeine: No ROS Constitutional Constitutional: Reports fatigue, fever(s), malaise and weakness; Denies anorexia , change in weight, chills, night sweats or other Eyes Eyes: Denies blurry vision, change in eye color, change in vision, discharge from eye(s), double vision, erythema, eye pain, loss of vision or other ENT HEENT: Denies abnormal hearing, dysphagia, ear pain, epistaxis, headache(s), hearing loss, nasal congestion, nasal discharge, post nasal drip, sinus pressure, sore throat or other Cardiovascular Cardiovascular: Denies chest pain, claudication, dyspnea on exertion, edema, l ightheadedness, orthopnea, palpitations, paroxysmal nocturnal dyspnea, rapid heart rate, syncope or other Respiratory/Chest Respiratory/Chest: Reports cough and productive cough; Denies dyspnea, excessive phlegm production, hemoptysis, shortness of breath at rest, shortness of breath with exertion, wheezing or other Gastrointestinal Gastrointestinal: Denies abdominal pain, coffee ground emesis, constipation, diarrhea, dyspepsia, hematemesis, hematochezia, loose stools, melena, nausea, vomiting or other Genitourinary Genitourinary: Denies burning urination, difficulty urinating, dysuria, hematuria, nocturia, urinary frequency, urinary hesitancy, urinary incontinence, urinary urgency or other Musculoskeletal Musculoskeletal: Denies arthralgias, back pain, joint pain, joint stiffness, joint swelling, myalgias, neck pain or other Neurologic Neurologic: Denies abnormal gait, abnormal speech, confusion, disequilibrium, dizziness, focal weakness, headache(s), numbness, paresthesias, seizure-like activity, seizures, syncope, tingling, tremor(s) or other Psychiatric Psychiatric: Denies anxiety, depression, homicidal ideation, suicidal ideation or other Endocrine Endocrinology: Denies change in body appearance, cold intolerance, excessive sweating, heat intolerance, polydipsia, polyuria or other Hematologic/Lymphatic Hematologic/Lymphatic: Denies anemia, easy bleeding, easy bruising, lymphadenopathy or other Allergic/Immunologic Allergic/Immunologic: Denies rhinitis, hives, eczemia, asthma or other Vital Signs Vital Signs Vital Signs: 09/30/20 09:08 09/30/20 09:11 09/30/20 09:26 Temperature 99.2 F H 99.2 F H Temperature Source Axillary Axillary Pulse Rate 67 67 Respiratory Rate 21 H 21 H Respiratory Effort Short of Breath Labored Respiratory Depth Respiratory Pattern Blood Pressure 124/70 H 124/70 H Blood Pressure Mean 88 88 Blood Pressure Source Blood Pressure Position Blood Pressure Location Pulse Ox 99 99 98 Oxygen Delivery Method Non-Rebreather Non-Rebreather Non-Rebreather Oxygen Flow Rate (L/min) 15 09/30/20 10:11 09/30/20 11:00 09/30/20 11:40 Temperature 99 F 99.7 F H 98.3 F Temperature Source Temporal Temporal Temporal Pulse Rate 60 61 58 L Respiratory Rate 25 H 22 H 22 H Respiratory Effort Respiratory Depth Respiratory Pattern Blood Pressure 129/71 H 130/57 H 130/77 H Blood Pressure Mean 90 81 94 Blood Pressure Source Blood Pressure Position Blood Pressure Location Pulse Ox 97 99 100 Oxygen Delivery Method Non-Rebreather Non-Rebreather Non-Rebreather Oxygen Flow Rate (L/min) 15 09/30/20 12:45 09/30/20 12:46 Temperature 97.7 F L Temperature Source Temporal Pulse Rate 59 L Respiratory Rate 18 Respiratory Effort Normal Non-Labored Respiratory Depth Normal Respiratory Pattern Normal Blood Pressure 150/61 H Blood Pressure Mean 90 Blood Pressure Source Monitor Blood Pressure Position Semi-Fowlers Blood Pressure Location Right Forearm Pulse Ox 100 Oxygen Delivery Method Non-Rebreather Non-Rebreather Oxygen Flow Rate (L/min) 15 Weight Weight: 220 lb Body Mass Index (BMI) 31.5 Physical Exam Const alert and oriented x3 General Appearance: cooperative HEENT normocephalic, head/scalp atraumatic, hearing grossly normal bilaterally and moist oral mucous membranes Eyes EOMs intact bilaterally and conjunctivae normal Neck no lymphadenopathy, supple and no JVD Resp Resp Narrative: Satting 75% on RA, satting 100% on 15 liters via NRB. Effort and Inspection: abnormal respiratory pattern, respiratory distress and labored Auscultation: diminished lung sounds Cardio regular rate, regular rhythm, no murmurs and no JVD GI normal to inspection, nondistended, normoactive bowel sounds, soft to palpation and non-tender Extremity normal to inspection, full ROM and no clubbing, cyanosis or edema Skin no rashes or lesions noted, no wounds, skin turgor normal and no jaundice Neuro CN's II-XII intact bilaterally Psych affect normal Results Lab / Micro Data Result Diagrams: 09/30/20 08:53 09/30/20 08:53 Labs: Laboratory Results - last 24 hr 09/30/20 08:53: WBC 17.4 H, RBC 3.40 L, Hgb 9.9 L, Hct 32.1 L, MCV 94.4 H, MCH 29.1, MCHC 30.8 L, RDW Std Deviation 63.1 H, RDW Coeff of Kristal 18.1 H, Plt Count 407, MPV 11.0, Immature Gran % (Auto) 2.800 H, Neut % (Auto) 84.7 H, Lymph % (Auto) 2.9 L, Frio % (Auto) 8.5, Eos % (Auto) 0.7, Baso % (Auto) 0.4, Absolute Neuts (auto) 14.7 H, Absolute Lymphs (auto) 0.51 L, Nucleated RBC % 0.2 09/30/20 08:53: Sodium 138, Potassium 4.6, Chloride 101, Carbon Dioxide 34.0 H, Anion Gap 3 L, BUN 33 H, Creatinine 1.03, Estim Creat Clear Calc 50.76, Est GFR (MDRD) Af Amer 89, Est GFR (MDRD) Non-Af 74, BUN/Creatinine Ratio 32.0 H, Gl ucose 96, Calcium 11.3 H, Troponin I High Sens 118 H* 09/30/20 08:53: B-Natriuretic Peptide 347.9 H 09/30/20 09:25: D-Dimer Quant (PE/DVT) 4.31 H* 09/30/20 09:25: PT 14.8, INR 1.2, APTT 49.4 H Micro: Microbiology 09/30/20 09:25 Mucosa - Nose SARS-CoV-2 Antigen (Rapid) - Final Rhythm Strip Rhythm Strip: Sinus Rhythm Rate: 66 Ectopy: None Radiology Impression Chest X-Ray 09/30/20 09:50 IMPRESSION: Persistent bilateral interstitial changes with areas of confluence suggestive of a mild degree of CHF superimposed on chronic scarring. Electronically Signed: Jeffy Sheehan MD at 10:30 EDT , Service support , Chest CTA 09/30/20 10:14 IMPRESSION: Pulmonary emboli in the left lower lobe. Since prior study, there has been progressive increase in size of the left lower lobe mass/infiltration central necrosis. Diffuse bilateral pulmonary scarring with superimposed patchy infiltrates in the right upper lobe. Pericardial effusion. Electronically Signed: Jeffy Sheehan MD at 11:06 EDT , Service support , Assessment & Plan Assessment/Plan (1) Pericardial effusion: (2) Pneumonia: (3) Hypoxia: (4) Pulmonary emboli: (5) Cancer with pulmonary metastases: (6) Essential (primary) hypertension: (7) Stenosis of left carotid artery: (8) Hyperlipidemia: QUALIFIERS: Hyperlipidemia type: unspecified Qualified Code(s): E78.5 - Hyperlipidemia, unspecified PLAN: Patient is a 80-year-old male who presents to the ED at [facility] on 09/30/2020 with a chief complaint of fever and malaise. Patient is being admitted for management of pulmonary embolism, pneumonia and pericardial effusion. 1) Pulmonary embolism Patient satting 75% on room air on admission, however was without significant respiratory distress. D-dimer elevated at 4.31. CT-A demonstrates pulmonary emboli in the lower left lobe. Plan; admit to PCU for cardiac telemetry monitoring, initiate therapeutic heparin drip, O2 per protocol, PT/OT eval. 2) Commuity acquired pneumonia in the setting of Non small cell lung cancer. CT-A demonstrates patchy infiltrates bilaterally with superimposed patchy infiltrates in the right upper lobe. Patient is afebrile, although is hypoxic satting 70% on room air. CBC demonstrates a leukocytosis of 17,000 with neutrophilic predominance. Rapid Covid is negative. Plan; as above, CBC and BMP in a.m., initiate Zosyn. 3) acute hypoxic respiratory failure of mixed etiology As above. 4) Non-small cell carcinoma, squamous cell carcinoma. Likely contributing and complicating overall care. Follows with Dr. Clement of [facility]. CODE STATUS: DNRCC-A, no intubation Advance care planning: Son is patient's healthcare power of defense attorney and patient does have a living will which will be brought by the family. DVT prophylaxis - esdrasy on therapeutic heparin Patient seen by Yvan Massey PA-C, under the supervision of Dr. Olvia. Documented by User: Dr. 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 On home oxygen therapy Respiratory failure (01/2020) Restless legs Secondary pulmonary arterial hypertension Shortness of breath on exertion Stenosis of left carotid artery Wears glasses Home Medications acetaminophen 500 mg PO BID 01/22/20 [History Last Taken 01/22/20] aspirin 81 mg PO QHS 01/22/20 [History Last Taken 09/30/20 09:00] lisinopril 20 mg PO BID 01/22/20 [History Last Taken 09/30/20 09:00] omeprazole 20 mg PO QHS 01/22/20 [History Last Taken 09/29/20 21:00] rosuvastatin 10 mg PO QHS 01/22/20 [History Last Taken 09/29/20 21:00] amlodipine 5 mg PO QHS 06/20/20 [History Last Taken 09/29/20 21:00] carvedilol 6.25 mg PO BID 09/30/20 [History Last Taken 09/30/20 09:00] furosemide 40 mg PO BID 09/30/20 [History Last Taken 09/30/20 09:00] potassium chloride 20 meq PO DAILY 09/30/20 [History Last Taken 09/30/20 09:00] spironolactone [Aldactone] 25 mg PO DAILY 09/30/20 [History Last Taken 09/30/20 09:00] Allergy/AdvReac Type Severity Reaction Status Date / Time doxazosin [From Cardura] Allergy Mild Chest Verified 09/30/20 09:08 tightness Xumbdex-Zzm-Lys Reductase AdvReac Severe JOINT PAIN Verified 09/30/20 09:08 Inhibitor Family History Mother Cancer Uterine cancer Brother Cancer prostate Father History of psychiatric disorder Surgical History History of esophagogastroduodenoscopy (EGD) History of left-sided carotid endarterectomy Hx of colonoscopy Social History Smoking Status: Former smoker quit date: 02/11/89 pack-years: 50 how long ago did patient quit smokin + years ago alcohol intake: former substance use type: does not use caffeine: No Results Lab / Micro Data Result Diagrams: 09/30/20 08:53 09/30/20 08:53 Charges/Coding Addendum Addendum: This patient was seen in conjunction with BRUNA Galvez. I have independently interviewed and examined the patient and reviewed pertinent historical, laboratory, and other data. Please refer to BRUNA Galvez's note for his patient's presentation, findings, and recommendations. I have reviewed and his note and concur with his documentation 80-year-old male with past medical history of metastatic brain CA, status post recent radiation to the brain done in [facility] comes in with progressive shortness of breath. Patient was found to be on 15 L of oxygen. His D-dimer was elevated. Chest x-ray showed bilateral interstitial changes with areas of confluence suggestive of CHF superimposed on chronic scarring. CT of the chest shows PE in the left lower lobe, progressive increase in size in the left lower lobe mass/infiltration with central necrosis. Bilateral diffuse pulmonary scarring with patchy superimposed infiltrates in the right upper lobe. WBC was elevated at 17.4 on admission. Physical Exam: Gen: Comfortable, on 15 L of oxygen, not pale, not jaundiced CVS:HS I +II, regular, no murmurs RESP: Diminished at lung bases GI: BS present and normal, soft, nontender, no palpable organs EXT:No edema ASSESSMENT: 1. Acute hypoxic respiratory failure 2. Acute PE 3. Pneumonia, likely postobstructive 4. Elevated troponin secondary to acute PE 5. Metastatic lung CA 6. Chronic diastolic CHF Plan: Discussed with patient extensively, he stated that his CODE STATUS is DNR CCA, no intubation. He was interested in hospice. I explained the various modalities of hospice. Patient's son is at bedside. He stated that he has been trying to care for his dad as much as he is could. He have a helper that comes 16 hours a day. He however is getting tired and he is on FMLA. Social work will be consulted for discharge planning to a care home facility. Trial of Lasix 40 mg IV x1 to see if that helps with his breathing Continue on breathing treatment, IV Zosyn, heparin drip Visit Charges Inpatient E&M: 98081 Init Hosp L3 Procedures Hospitalists Procedures: 32159 Advncd Care Plan 30 Min
[2020-09-30] MEDS: Furosemide 40 MG/4 ML Vial IV (13:58)
[2020-09-30] MEDS: 0.9% Saline Lock 10 ML Syringe IV (13:58)
--- NOTE | 2020-09-30 14:34 | PCS.PANDOC ---
PANDEMIC DOCUMENTATION INITIATED: Date: 09/26/2020 Time: 190
--- NOTE | 2020-09-30 15:03 | CASEMGMT ---
Physician spoke with patient and his son about Hospice. They were in agreement with talking to Hospice. Plan is to re-evaluate patient tomorrow to see if he may qualify for the inpatient unit or if he does not he will need SNF. SW spoke with patient and his son. Patient was annoyed that someone else was coming into his room. SW talked with them about Hospice. They are familiar with Hospice as patient's several months ago and was active with Hospice. SW explained SW will make the referral and Hospice will call patient's son and arrange a meeting. They were in agreement with this. SW explained that he can be evaluated for their inpatient unit. SW explained that if they choose to go to a correction on Hospice he will have to private pay for room and board and insurance will pay for the Hospice portion of it. SW explained this would be around $200 some dollars a day. SW then faxed the referral to Hospice. SW also called Hospice and spoke with Taco regarding referral. He said they will not be able to meet with family until tomorrow. ROBERT updated physician. Melinda Patel [employer]
--- NOTE | 2020-09-30 15:20 | NURSING ---
wound photo: left buttock
[2020-09-30] MEDS: Ipratropium/Albuterol Sulfate 3 ML AMPUL.NEB INHALATION ×2 (15:36→20:45)
--- NOTE | 2020-09-30 15:46 | CASEMGMT ---
ROBERT received a call from Taco at Hospice and he requested more notes on patient. ROBERT sent some Oncology notes as there were no other notes from this visit since he just came in this afternoon. Melinda MCCRARY
--- NOTE | 2020-09-30 20:18 | PCM.PN.BLA ---
Progress Note Because of difficulty in drawing blood and patients frustration and subsequent refusal of further blood draws to check PTT STOP HEPARIN DRIP AND START LOVENOX
[2020-09-30] MEDS: Menthol/Lanolin/Calamine/Znox 113 GM Tube 1 APPLIC TOPICAL (20:32)
[2020-09-30] MEDS: Enoxaparin 100 MG/ML Syringe SC (20:45)
[2020-10-01] VITALS (17 sets, daily range): BP systolic 91–159; BP diastolic 47–142; PULSE 69–164; RESP 18–28; TEMP 36.6–36.8; O2SAT 93–99
[2020-10-01 07:28] LABS: Absolute Lymphocyte Count 0.69 X10^3/uL (0.83-4.51); Absolute Neutrophil Count 13.1 X10^3/uL (2.0-7.7); Basophil# 0.09 X10^3/uL; Basophil% 0.5 % (0-1); Eosinophils% 1.8 % (0-5); Hematocrit 30.2 % (40-54); Hemoglobin 9.4 g/dL (13.0-16.5); Lymphocyte # 0.69 X10^3/ul (0.83-4.51); Lymphocyte % 4.1 % (19-41); Mean Corp Hgb Conc 31.1 g/dL (32-36); Mean Corpuscular Hgb 28.8 pg (27.0-32.0); Mean Corpuscular Volume 92.6 fL (80-94); Monocyte# 1.72 X10^3/uL; Monocyte% 10.3 % (0-10); NRBC Flagged by Analyzer 0.2 % (0-5); Neutrophil % 78.9 % (47-70); POSITIVE DIFFERENTIAL YES; Platelet Count 408 K/mm3 (150-450); RBC Distribution Width CV 18.1 % (11.6-14.6); RBC Distribution Width SD 61.6 fl (35.1-43.9); Red Blood Count 3.26 M/mm3 (4.6-6.2); White Blood Count 16.6 K/mm3 (4.4-11.0)
[2020-10-01 07:36] LABS: Differential Indicated SCAN CRITERIA MET
[2020-10-01] MEDS: Ipratropium/Albuterol Sulfate 3 ML AMPUL.NEB INHALATION ×5 (07:45→23:23)
[2020-10-01 07:50] LABS: ALB/GLOB Ratio 0.5 RATIO (0.9-2.4); AST(SGOT) 33 U/L (15-37); Alanine Aminotransfer ALT/SGPT 26 U/L (16-61); Alkaline Phosphatase 168 U/L (45-117); Anion Gap 5 (5-15); BUN 36 mg/dL (7-18); BUN/Creat Ratio 32.1 RATIO (10-20); Calcium,Total 11.1 mg/dL (8.5-10.1); Chloride 101 mmol/L (98-107); Creatinine, Serum 1.12 mg/dL (0.70-1.30); EST Glomerular Filtration Rate 67 mL/min (>60); Est Glom Filt Rate - Afr Amer 81 mL/min (>60); Estimated Creatinine Clearance 53.41 ml/min; Globulin 4.4 g/dL (2.2-4.2); Glucose 88 mg/dL (74-106); Protein, Total 6.4 g/dL (6.4-8.2); Sodium Level 137 mmol/L (136-145)
--- NOTE | 2020-10-01 08:32 | NURSING ---
0710-BREAKFAST ORDER PLACED. PT DENIES NEEDS
[2020-10-01] MEDS: Menthol/Lanolin/Calamine/Znox 113 GM Tube 1 APPLIC TOPICAL ×2 (09:52→22:04)
[2020-10-01] MEDS: Enoxaparin 100 MG/ML Syringe SC ×2 (09:53→21:52)
[2020-10-01] MEDS: Furosemide 40 MG/4 ML Vial IV ×2 (10:01→17:58)
[2020-10-01] MEDS: 0.9% Saline Lock 10 ML Syringe IV ×4 (10:01→23:05)
[2020-10-01 10:21] LABS: Differential Comment SCANNED
--- NOTE | 2020-10-01 10:52 | PCM.DC ---
Discharge Instructions Diet Discharge Diet: No restrictions Activity Discharge Activity: Return to Normal Activity Weight Bearing Status: Weight bearing as tolerated Dressing / Incision Call your doctor if you observe: Fever of 101 or Higher, Numbness or Tingling, Shortness of breath, Dizziness, Chest pain, Increased palpitations (irregular heartbeat) and Calf discomfort Follow Up Care Please Follow Up With: Primary care provider When: Within the next two weeks. Test Results: Test results from this visit will be discussed in further detail at your follow-up appointment, if applicable. Discharge Plan Admission Admit Date/Time: 09/30/20 11:25 Primary Reason for Your Visit: Shortness of breath Attending Provider: Bhavani Oliva Primary Care Provider: Bandar Goldsmith III Discharge Orders/Prescriptions Prescriptions: New Eliquis 5 mg tablet 5 mg PO BID Qty: 74 RF: 0 amoxicillin-pot clavulanate [Augmentin] 875-125 mg tablet 1 tab PO BID Qty: 20 RF: 0 Continued lisinopril 20 MG tablet 20 mg PO BID RF: 0 acetaminophen 500 MG tablet 500 mg PO BID RF: 0 omeprazole 20 MG capsule,delayed release(DR/EC) 20 mg PO QHS RF: 0 aspirin 81 MG tablet,chewable 81 mg PO QHS RF: 0 rosuvastatin 10 MG tablet 10 mg PO QHS RF: 0 amlodipine 5 mg tablet 5 mg PO QHS RF: 0 potassium chloride 20 mEq Tablet Extended Release 20 meq PO DAILY RF: 0 furosemide 40 mg tablet 40 mg PO BID RF: 0 carvedilol 6.25 mg tablet 6.25 mg PO BID RF: 0 spironolactone [Aldactone] 25 mg tablet 25 mg PO DAILY RF: 0 Referrals / Follow Up: Bandar Goldsmith III, MD [Primary Care Provider] - Within 2 Weeks Disposition Disposition (needs filled in before D/C Order can be placed): Hospice in Medical Facility
--- NOTE | 2020-10-01 14:20 | PCM.DC.SUM ---
Documented by User: Yvan MCFARLAND 10/01/20 14:39 Providers Date of Admission: 09/30/20 Primary Care Physician: Dr. Bandar Goldsmith III, MD Reason For Visit: ACUTE HYPOXIC RESPIRATORY FAILURE Diagnosis Discharge Diagnosis (1) Pericardial effusion: Status: Acute Code(s): I31.3 - Pericardial effusion (noninflammatory) (2) Pneumonia: Status: Acute Code(s): J18.9 - Pneumonia, unspecified organism (3) Hypoxia: Status: Acute Code(s): R09.02 - Hypoxemia (4) Pulmonary emboli: Status: Acute Code(s): I26.99 - Other pulmonary embolism without acute cor pulmonale (5) Cancer with pulmonary metastases: Status: Acute Code(s): C78.00 - Secondary malignant neoplasm of unspecified lung (6) Essential (primary) hypertension: Status: Chronic Code(s): I10 - Essential (primary) hypertension (7) Stenosis of left carotid artery: Status: Chronic Code(s): I65.22 - Occlusion and stenosis of left carotid artery (8) Hyperlipidemia: Status: Chronic Code(s): E78.5 - Hyperlipidemia, unspecified Qualifiers: Hyperlipidemia type: unspecified Qualified Code(s): E78.5 - Hyperlipidemia, unspecified Medications at Discharge Home Medications acetaminophen 500 mg PO BID 01/22/20 aspirin 81 mg PO QHS 01/22/20 lisinopril 20 mg PO BID 01/22/20 omeprazole 20 mg PO QHS 01/22/20 rosuvastatin 10 mg PO QHS 01/22/20 amlodipine 5 mg PO QHS 06/20/20 carvedilol 6.25 mg PO BID 09/30/20 furosemide 40 mg PO BID 09/30/20 potassium chloride 20 meq PO DAILY 09/30/20 spironolactone [Aldactone] 25 mg PO DAILY 09/30/20 amoxicillin-pot clavulanate [Augmentin] 1 tab PO BID #20 tab 10/01/20 apixaban [Eliquis] 5 mg PO BID #74 tab 10/01/20 Hospital Course Summary of Care Provided Minutes Spent on Discharge: 35 Hospital Course: Disposition: Patient to discharge to inpatient hospice unit. 1) Pulmonary embolism Currently satting at 93% on 3 L via nasal cannula. Initiated on heparin drip, and then switched to therapeutic Lovenox. D-dimer elevated at 4.31. CT-A demonstrates pulmonary emboli in the lower left lobe. Plan; discharge to inpatient hospice, initiate Eliquis 10 mg twice daily x7 days, then transition to 5 mg p.o. twice daily thereafter. 2) Pneumonia in the setting of Non small cell lung cancer. CT-A demonstrates patchy infiltrates bilaterally with superimposed patchy infiltrates in the right upper lobe. CBC demonstrates a leukocytosis of 16,000 with neutrophilic predominance. Rapid Covid is negative. Plan; as above, initiate Augmentin 875 twice daily x 10 days. 3) acute hypoxic respiratory failure of mixed etiology As above. 4) Non-small cell carcinoma, squamous cell carcinoma. Likely contributing and complicating overall care. Follows with Dr. Clement of [facility]. CODE STATUS: DNRCC-A, no intubation Patient seen by Yvan Massey PA-C, under the supervision of Dr. Oliva. Physical Exam Narrative Patient is an 80-year-old male resting in bed, alert and orient x3. Patient reports improvement in his shortness of breath and cough for admission. Denies chest pain, shortness of breath, palpitations, hemoptysis, sputum production, fever, chills, N/V/D. Const alert, oriented x3 and no apparent distress HEENT normocephalic, head/scalp atraumatic and hearing grossly normal bilaterally Eyes PERRL, EOMs intact bilaterally and conjunctivae normal Neck no lymphadenopathy, supple and no JVD Resp normal respiratory effort, no retractions and no use of accessory muscles Resp Narrative: Currently satting 93% on 3 L via nasal cannula. Auscultation: diminished lung sounds Cardio regular rate, regular rhythm, no murmurs and no JVD GI normal to inspection, nondistended, normoactive bowel sounds, soft to palpation and non-tender Extremity normal to inspection, full ROM and no clubbing, cyanosis or edema Skin no rashes or lesions noted, no wounds and skin turgor normal Neuro CN's II-XII intact bilaterally Psych affect normal Medical Records Data Medical Nutrition Assessment Dietitian: Malnutrition Criteria Met Start: 09/30/20 15:45 Freq: Status: Active Protocol: Document 09/30/20 15:45 SLA (Rec: 09/30/20 15:45 [facility] [id number]) Nutrition Malnutrition Evidence of Malnutrition Exists Yes Malnutrition (severe): Chronic Evidenced By Suboptimal Energy Intake ( Severe),Weight Loss (Severe), Physical Changes (Severe) Intake Problem Increased Nutrient Needs (specify) Etiology protein related to skin status Signs/Symptoms as evidenced by PI to buttock and wound nurse following. Status Active Problem Clinical Problem Chronic Disease or Condition Related Malnutrition Etiology related to suboptimal po intake to meet pt estimated nutritional needs d/t cancer diagnosis and of spouse Signs/Symptoms as evidenced by decreased po intake over course of 8 months , 15.8% wt loss x 8 months and fat/muscle loss (temporal/ orbital region - upper body muscle loss leaving pt unable to sit upright on his own). Status Active Problem Recommendation Dietitian Recommendations/Changes Will consult CIVIL CLERK related to swallowing complaints Will liberalize diet to Regular d/t signs/symptoms of malnutrition Will provide yogurt w/ fruit mixed in 2x/day Will order vanilla ensure enlive w/ medpass 4x/day Weight / BMI Weight Weight: 214 lb 1.102 oz Body Mass Index (BMI) 31.5 ABG / Lab / Microbiology Data Result Diagrams: 10/01/20 07:04 10/01/20 07:04 Laboratory: Laboratory Results - last 24 hr 09/30/20 18:45: APTT Cancelled 10/01/20 07:04: WBC 16.6 H, RBC 3.26 L, Hgb 9.4 L, Hct 30.2 L, MCV 92.6, MCH 28.8, MCHC 31.1 L, RDW Std Deviation 61.6 H, RDW Coeff of Kristal 18.1 H, Plt Count 408, MPV 11.0, Immature Gran % (Auto) 4.400 H, Neut % (Auto) 78.9 H, Lymph % (Auto) 4.1 L, [place] % (Auto) 10.3 H, Eos % (Auto) 1.8, Baso % (Auto) 0.5, Absolute Neuts (auto) 13.1 H, Absolute Lymphs (auto) 0.69 L, Nucleated RBC % 0.2, Differential Comment SCANNED, Diff Path Review June10/01/20 07:04: Sodium 137, Potassium 4.0, Chloride 101, Carbon Dioxide 31.0, Anion Gap 5, BUN 36 H, Creatinine 1.12, Estim Creat Clear Calc 53.41, Est GFR (MDRD) Af Amer 81, Est GFR (MDRD) Non-Af 67, BUN/Creatinine Ratio 32.1 H, Glucose 88, Calcium 11.1 H, Total Bilirubin 0.40, AST 33, ALT 26, Alkaline Phosphatase 168 H, Total Protein 6.4, Albumin 2.0 L, Globulin 4.4 H, Albumin/Globulin Ratio 0.5 L Microbiology: Microbiology 09/30/20 09:25 Mucosa - Nose SARS-CoV-2 Antigen (Rapid) - Final D/C Instructions Discharge Diet: No restrictions Weight Bearing Status: Weight bearing as tolerated Call your doctor if you observe: Fever of 101 or Higher, Numbness or Tingling, Shortness of breath, Dizziness, Chest pain, Increased palpitations (irregular heartbeat) and Calf discomfort Please Follow Up With: Primary care provider When: Within the next two weeks. Meaningful Use Info Meaningful Use Diagnoses (Choose all that apply): VTE VTE Anticoag overlap given w/in hospital stay or rx'd at dc?: Yes Pt receive overlap for 5 days?: No Reason overlap not ordered, prescribed, or given for 5 days: Hospice Care Discharge Plan Admission Admit Date/Time: 09/30/20 11:25 Primary Reason for Your Visit: Shortness of breath Attending Provider: Bhavani Oliva Primary Care Provider: Bandar Goldsmith III Discharge Orders/Prescriptions Prescriptions: New Eliquis 5 mg tablet 5 mg PO BID Qty: 74 RF: 0 amoxicillin-pot clavulanate [Augmentin] 875-125 mg tablet 1 tab PO BID Qty: 20 RF: 0 Continued lisinopril 20 MG tablet 20 mg PO BID RF: 0 acetaminophen 500 MG tablet 500 mg PO BID RF: 0 omeprazole 20 MG capsule,delayed release(DR/EC) 20 mg PO QHS RF: 0 aspirin 81 MG tablet,chewable 81 mg PO QHS RF: 0 rosuvastatin 10 MG tablet 10 mg PO QHS RF: 0 amlodipine 5 mg tablet 5 mg PO QHS RF: 0 potassium chloride 20 mEq Tablet Extended Release 20 meq PO DAILY RF: 0 furosemide 40 mg tablet 40 mg PO BID RF: 0 carvedilol 6.25 mg tablet 6.25 mg PO BID RF: 0 spironolactone [Aldactone] 25 mg tablet 25 mg PO DAILY RF: 0 Referrals / Follow Up: Bandar Goldsmith III, MD [Primary Care Provider] - Within 2 Weeks Disposition Disposition (needs filled in before D/C Order can be placed): Hospice in Medical Facility Documented by User: Dr. Bhavani Oliva MD 10/01/20 15:26 Providers Date of Admission: 09/30/20 Reason For Visit: ACUTE HYPOXIC RESPIRATORY FAILURE Medications at Discharge Home Medications acetaminophen 500 mg PO BID 01/22/20 aspirin 81 mg PO QHS 01/22/20 lisinopril 20 mg PO BID 01/22/20 omeprazole 20 mg PO QHS 01/22/20 rosuvastatin 10 mg PO QHS 01/22/20 amlodipine 5 mg PO QHS 06/20/20 carvedilol 6.25 mg PO BID 09/30/20 furosemide 40 mg PO BID 09/30/20 potassium chloride 20 meq PO DAILY 09/30/20 spironolactone [Aldactone] 25 mg PO DAILY 09/30/20 amoxicillin-pot clavulanate [Augmentin] 1 tab PO BID #20 tab 10/01/20 apixaban [Eliquis] 5 mg PO BID #74 tab 10/01/20 ABG / Lab / Microbiology Data Result Diagrams: 10/01/20 07:04 10/01/20 07:04 Discharge Plan Admission Admit Date/Time: 09/30/20 11:25 Primary Reason for Your Visit: Shortness of breath Attending Provider: Bhavani Oliva Primary Care Provider: Bandar Goldsmith III Discharge Orders/Prescriptions Prescriptions: New Eliquis 5 mg tablet 5 mg PO BID Qty: 74 RF: 0 amoxicillin-pot clavulanate [Augmentin] 875-125 mg tablet 1 tab PO BID Qty: 20 RF: 0 Continued lisinopril 20 MG tablet 20 mg PO BID RF: 0 acetaminophen 500 MG tablet 500 mg PO BID RF: 0 omeprazole 20 MG capsule,delayed release(DR/EC) 20 mg PO QHS RF: 0 aspirin 81 MG tablet,chewable 81 mg PO QHS RF: 0 rosuvastatin 10 MG tablet 10 mg PO QHS RF: 0 amlodipine 5 mg tablet 5 mg PO QHS RF: 0 potassium chloride 20 mEq Tablet Extended Release 20 meq PO DAILY RF: 0 furosemide 40 mg tablet 40 mg PO BID RF: 0 carvedilol 6.25 mg tablet 6.25 mg PO BID RF: 0 spironolactone [Aldactone] 25 mg tablet 25 mg PO DAILY RF: 0 Referrals / Follow Up: Bandar Goldsmith III, MD [Primary Care Provider] - Within 2 Weeks Disposition Disposition (needs filled in before D/C Order can be placed): Hospice in Medical Facility Charges/Coding Addendum Addendum: This patient was seen in conjunction with BRUNA Galvez. I have independently interviewed and examined the patient and reviewed pertinent historical, laboratory, and other data. Please refer to BRUNA Galvez's note for his patient's presentation, findings, and recommendations. I have reviewed and his note and concur with his documentation 80-year-old male with past medical history of metastatic brain CA, status post recent radiation to the brain done in [facility] comes in with progressive shortness of breath. Patient was found to be on 15 L of oxygen. His D-dimer was elevated. Chest x-ray showed bilateral interstitial changes with areas of confluence suggestive of CHF superimposed on chronic scarring. CT of the chest shows PE in the left lower lobe, progressive increase in size in the left lower lobe mass/infiltration with central necrosis. Bilateral diffuse pulmonary scarring with patchy superimposed infiltrates in the right upper lobe. WBC was elevated at 17.4 on admission. Patient was admitted to PCU and managed on oxygen via Venturi mask, IV heparin drip, IV Zosyn, breathing treatment and Lasix. Patient's oxygen requirements improved to 6 L. He was seen by hospice and was accepted to inpatient hospice facility. Physical Exam: Gen: Comfortable, on 6L of oxygen, not pale, not jaundiced CVS:HS I +II, regular, no murmurs RESP: Diminished at lung bases GI: BS present and normal, soft, nontender, no palpable organs EXT:No edema Visit Charges Inpatient E&M: 02128 Disch Hosp
--- NOTE | 2020-10-01 16:07 | NURSING ---
Per Hospice nurse, patient does not qualify for IPU. However they signed Hospice papers. Plan is to DC to SNF with Hospice. Please notify hospice when patient is DC'ed.
--- NOTE | 2020-10-01 16:13 | CASEMGMT ---
SW Note Referral Source: LEXIS GRAHAM Referral Reason: Hospice Referral SW spent extensive amount of time with patient and son educating them on [facility]. Initially patient had stated that he wanted to continue with treatment and this blog writer indicated that the goal of hospice is comfort and care. Son were both present and son's stated that they can not manage patient at home. When discussing what patient wants and needs he stated he wanted out of the hospital. SW indicated that if patient wants to go to SNF with his nursing home care he will be in the hospital over the weekend and stated as he has been found appropriate for IP at Hospice he could go to their unit today. Patient would ask son's what they wanted and they deferred back to him. Son's said that the appointment with patient's cancer MD has been cancelled due to patient's current condition. SW provided emotional support. Explained that if patient got to Hospice and it was not what he wanted he could speak to staff and get placed at a facility. Patient then decided to speak to Hospice. SW called [facility] and patient was referred to Hospice. Hospice Liason will meet with patient today at 16:00 hours. Patient and family updated. Plan: Hospice Referral Marielle GARCIA
--- NOTE | 2020-10-01 16:27 | PN.HOSP_ITS ---
Documented by User: Yvan MCFARLAND 10/01/20 16:43 Subjective Subjective Patient is an 80-year-old male resting in bed, alert and orient x3. Patient reports improvement in his shortness of breath and cough for admission. Denies chest pain, shortness of breath, palpitations, hemoptysis, sputum production, fe yael, chills, N/V/D. Objective Data Objective Data Vital Signs: Vital Signs Temp Pulse Resp BP Pulse Ox 97.8 F 81 18 152/47 H 94 10/01/20 14:11 10/01/20 14:11 10/01/20 14:11 10/01/20 14:11 10/01/20 14:11 Oxygen Flow Rate (L/min) 3 Oxygen Delivery Method Nasal Cannula Weight: 214 lb 1.102 oz Body Mass Index (BMI) 31.5 Intake & Output: Intake and Output for Last 24 Hours 09/29/20 09/30/20 10/01/20 23:59 23:59 23:59 Intake Total 801.08 / 801.08 440 / 440 Output Total 200 / 200 Balance 801.08 / 701.08 240 / 240 Medical Nutrition Assessment Dietitian: Malnutrition Criteria Met Start: 09/30/20 15:45 Freq: Status: Active Protocol: Document 09/30/20 15:45 SLA (Rec: 09/30/20 15:45 SLA [id number]) Nutrition Malnutrition Evidence of Malnutrition Exists Yes Malnutrition (severe): Chronic Evidenced By Suboptimal Energy Intake ( Severe),Weight Loss (Severe), Physical Changes (Severe) Intake Problem Increased Nutrient Needs (specify) Etiology protein related to skin status Signs/Symptoms as evidenced by PI to buttock and wound nurse following. Status Active Problem Clinical Problem Chronic Disease or Condition Related Malnutrition Etiology related to suboptimal po intake to meet pt estimated nutritional needs d/t cancer diagnosis and of spouse Signs/Symptoms as evidenced by decreased po intake over course of 8 months , 15.8% wt loss x 8 months and fat/muscle loss (temporal/ orbital region - upper body muscle loss leaving pt unable to sit upright on his own). Status Active Problem Recommendation Dietitian Recommendations/Changes Will consult SUPREME COURT JUSTICE related to swallowing complaints Will liberalize diet to Regular d/t signs/symptoms of malnutrition Will provide yogurt w/ fruit mixed in 2x/day Will order vanilla ensure enlive w/ medpass 4x/day Lab / Micro Data Result Diagrams: 10/02/20 04:52 10/02/20 04:52 Labs: Laboratory Results - last 24 hr 09/30/20 18:45: APTT Cancelled 10/01/20 07:04: WBC 16.6 H, RBC 3.26 L, Hgb 9.4 L, Hct 30.2 L, MCV 92.6, MCH 28.8, MCHC 31.1 L, RDW Std Deviation 61.6 H, RDW Coeff of Kristal 18.1 H, Plt Count 408, MPV 11.0, Immature Gran % (Auto) 4.400 H, Neut % (Auto) 78.9 H, Lymph % (Auto) 4.1 L, [place] % (Auto) 10.3 H, Eos % (Auto) 1.8, Baso % (Auto) 0.5, Absolute Neuts (auto) 13.1 H, Absolute Lymphs (auto) 0.69 L, Nucleated RBC % 0.2, Differential Comment SCANNED, Diff Path Review June foll 10/01/20 07:04: Sodium 137, Potassium 4.0, Chloride 101, Carbon Dioxide 31.0, Anion Gap 5, BUN 36 H, Creatinine 1.12, Estim Creat Clear Calc 53.41, Est GFR (MDRD) Af Amer 81, Est GFR (MDRD) Non-Af 67, BUN/Creatinine Ratio 32.1 H, Glucose 88, Calcium 11.1 H, Total Bilirubin 0.40, AST 33, ALT 26, Alkaline Phosphatase 168 H, Total Protein 6.4, Albumin 2.0 L, Globulin 4.4 H, Albumin/Globulin Ratio 0.5 L Micro: Microbiology 09/30/20 09:25 Mucosa - Nose SARS-CoV-2 Antigen (Rapid) - Final Rhythm Strip Rhythm Strip: Sinus Rhythm Rate: 66 Ectopy: None Physical Exam Const alert, oriented x3 and no apparent distress HEENT head/scalp atraumatic and moist oral mucous membranes Head and Scalp: normocephalic Eyes PERRL, EOMs intact bilaterally and conjunctivae normal Neck no lymphadenopathy, supple and no JVD Resp normal respiratory effort, no retractions and no use of accessory muscles Resp Narrative: Currently satting 93% on 3 L via nasal cannula. Auscultation: diminished lung sounds Cardio regular rate, regular rhythm, no murmurs and no JVD GI normal to inspection, nondistended, normoactive bowel sounds, soft to palpation and non-tender Extremity normal to inspection, full ROM and no clubbing, cyanosis or edema Skin no rashes or lesions noted, no wounds, skin turgor normal and no jaundice Neuro CN's II-XII intact bilaterally Psych affect normal Assessment & Plan Assessment/Plan (1) Pulmonary emboli: (2) Hypoxia: (3) Pneumonia: PLAN: Day 2: See subjective. Discharge planning: Patient will discharge to SNF pending acceptance and pre- CERT. Patient was supposed to discharge to hospice IPU today, however was denied due to not meeting criteria. Discharge was subsequently delayed. 1) Pulmonary embolism Patient is currently satting 93% on 3 L via nasal cannula and is without respiratory distress. Patient was supposed to discharge to hospice IPU, however discharge was delayed as above. D-dimer elevated at 4.31. CT-A demonstrates pulmonary emboli in the lower left lobe. Plan; remain admitted to PCU for cardiac telemetry monitoring, initiate therapeutic Lovenox, O2 per protocol, 2) Commuity acquired pneumonia in the setting of Non small cell lung cancer. CT-A demonstrates patchy infiltrates bilaterally with superimposed patchy infiltrates in the right upper lobe. Patient is afebrile, although is hypoxic satting 70% on room air. CBC demonstrates a leukocytosis of 17,000 with neutrophilic predominance. Rapid Covid is negative. Plan; as above, CBC and BMP in a.m., continue Zosyn. 3) acute hypoxic respiratory failure of mixed etiology As above. 4) Non-small cell carcinoma, squamous cell carcinoma. Likely contributing and complicating overall care. Follows with Dr. Clement of [facility]. DVT prophylaxis - currenlty on therapeutic Lovenox Patient seen by Yvan Massey PA-C, under the supervision of Dr. Oliva. Documented by User: Dr. Bhavani Oliva MD 10/02/20 12:35 Objective Data Lab / Micro Data Result Diagrams: 10/02/20 04:52 10/02/20 04:52 Charges/Coding Addendum Addendum: This patient was seen in conjunction with BRUNA Galvez. I have independently interviewed and examined the patient and reviewed pertinent historical, laboratory, and other data. Please refer to BRUNA Galvez's note for his patient's presentation, findings, and recommendations. I have reviewed and his note and concur with his documentation Patient was seen and examined. He is currently on 6 L of oxygen. He feels improved. He declined use of heparin drip. Was started on Lovenox. Multiple discussions were had with the patient regarding the plan of care. Hospice liai son person was in. Patient kept going back and forth with whether he wanted to go to inpatient hospice or hospice with correction or even going on hospice itself. Physical Exam: Gen: Comfortable, on 6 L of oxygen, not pale, not jaundiced CVS:HS I +II, regular, no murmurs RESP: Diminished at lung bases GI: BS present and normal, soft, nontender, no palpable organs EXT:No edema ASSESSMENT: 1. Acute hypoxic respiratory failure 2. Acute PE 3. Pneumonia, likely postobstructive 4. Elevated troponin secondary to acute PE 5. Metastatic lung CA 6. Chronic diastolic CHF Plan: We will continue on IV Zosyn, Lovenox subcu therapeutic dosing We will continue on Lasix We will consider switch to Eliquis at discharge A considerable amount of time was spent coordinating patient's care and discussing with the family as well [facility]. Patient eventually was declined inpatient hospice facility. He will be discharged to the assisted facility with hospice Time spent was more than 30 mins Visit Charges Inpatient E&M: 25718 Subs Hosp L3 Procedures Hospitalists Procedures: 77374 Advncd Care Plan addl 30 Min
--- NOTE | 2020-10-01 21:14 | EKG12_ITS ---
Test Reason : REPEAT NS Blood Pressure : / mmHG Vent. Rate : 092 BPM Atrial Rate : 092 BPM P-R Int : 162 ms QRS Dur : 094 ms QT Int : 334 ms P-R-T Axes : 029 -18 006 degrees QTc Int : 413 ms Normal sinus rhythm Normal ECG When compared with ECG of 01-OCT-2020 21:36, MANUAL COMPARISON REQUIRED, DATA IS UNCONFIRMED Confirmed by ALBERTINA DAVIS, EMMANUEL ([id number]), order editor MARIA A NG ([id number]) on 10/04/2020 8:02:21 AM Referred By: FEI Confirmed By:EMMANUEL ENG MD
--- NOTE | 2020-10-01 21:17 | EKG12_ITS ---
Test Reason : INCREASE HR Blood Pressure : / mmHG Vent. Rate : 152 BPM Atrial Rate : 178 BPM P-R Int : 000 ms QRS Dur : 090 ms QT Int : 286 ms P-R-T Axes : 000 -54 015 degrees QTc Int : 454 ms Atrial fibrillation Left axis deviation Nonspecific ST abnormality Abnormal ECG When compared with ECG of 30-SEP-2020 09:30, MANUAL COMPARISON REQUIRED, DATA IS UNCONFIRMED Confirmed by ALBERTINA DAVIS, EMMANUEL ([id number]), features editor MARIA A NG ([id number]) on 10/04/2020 8:06:49 AM Referred By: FEI Confirmed By:EMMANUEL ENG MD
--- NOTE | 2020-10-01 21:41 | PCM.PN.BLA ---
Progress Note Notified by nurse that patient is in SVT. Patient assessed at the bedside. Blood pressure normal. Adenosine 6 mg x 1 given. EKG with atrial fibrillation with rapid ventricular response. Patient on therapy dose of Lovenox. Will give Cardizem 10 mg IV push x1. Potassium a.m. is normal. Check magnesium. Check TSH.
[2020-10-01] MEDS: Adenosine 6 MG/2 ML Syringe IV (21:44)
[2020-10-01] MEDS: dilTIAZem 25 MG/5 ML Vial 10 MG IV BOLUS (21:44)
[2020-10-01 21:58] LABS: Magnesium 2.1 mg/dL (1.6-2.6)
[2020-10-01] MEDS: Amiodarone 360 MG in Dextrose 5% Viaflo Bag 192.8 ML 33.3 MG CONT INF (23:10)
--- NOTE | 2020-10-01 23:56 | EKG12_ITS ---
Test Reason : POST MED Blood Pressure : / mmHG Vent. Rate : 145 BPM Atrial Rate : 131 BPM P-R Int : 000 ms QRS Dur : 094 ms QT Int : 286 ms P-R-T Axes : 000 -22 -07 degrees QTc Int : 444 ms Atrial fibrillation Inferior infarct , age undetermined Abnormal ECG When compared with ECG of 01-OCT-2020 21:17, MANUAL COMPARISON REQUIRED, DATA IS UNCONFIRMED Confirmed by ALBERTINA DAVIS, EMMANUEL ([id number]), offline editor MARIA A NG ([id number]) on 10/04/2020 8:02:39 AM Referred By: FEI Confirmed By:EMMANUEL NEG MD
[2020-10-02] VITALS (25 sets, daily range): BP systolic 128–159; BP diastolic 48–71; PULSE 65–91; RESP 18–29; TEMP 36.3–36.8; O2SAT 89–99
[2020-10-02 05:07] LABS: Hematocrit 30.5 % (40-54); Hemoglobin 9.6 g/dL (13.0-16.5); Mean Corp Hgb Conc 31.5 g/dL (32-36); Mean Corpuscular Hgb 29.3 pg (27.0-32.0); Mean Platelet Vol. 10.7 fl (6.2-12.0); POSITIVE COUNT YES; POSITIVE DIFFERENTIAL YES; POSITIVE MORPHOLOGY YES; Platelet Count 433 K/mm3 (150-450); RBC Distribution Width SD 61.1 fl (35.1-43.9); Red Blood Count 3.28 M/mm3 (4.6-6.2); White Blood Count 16.4 K/mm3 (4.4-11.0)
[2020-10-02] MEDS: Amiodarone 360 MG in Dextrose 5% Viaflo Bag 192.8 ML 16.7 MG CONT INF (05:11)
[2020-10-02 05:12] LABS: Differential Indicated MANUAL DIFF
[2020-10-02 05:37] LABS: Anion Gap 7 (5-15); BUN 40 mg/dL (7-18); BUN/Creat Ratio 32.8 RATIO (10-20); Calcium,Total 11.2 mg/dL (8.5-10.1); Chloride 96 mmol/L (98-107); Creatinine, Serum 1.22 mg/dL (0.70-1.30); EST Glomerular Filtration Rate 61 mL/min (>60); Est Glom Filt Rate - Afr Amer 73 mL/min (>60); Estimated Creatinine Clearance 49.03 ml/min; Glucose 108 mg/dL (74-106); Sodium Level 135 mmol/L (136-145); Thyroid Stim Hormone (TSH) 0.44 uIU/mL (0.358-3.74)
[2020-10-02 05:56] LABS: Total Cells Counted 100 (MANUAL DIFF)
[2020-10-02 05:57] LABS: Metamyelocyte 2 % (0-1); Promyelocyte 1 % (0-0)
[2020-10-02 05:58] LABS: Lymphocyte 2 % (19-41); Monocyte 7 % (0-10); Myelocyte 8 % (0-0); Neutrophil-Segmented 81 % (47-70)
[2020-10-02 06:09] LABS: Platelet Estimate ADEQUATE (ADEQ)
[2020-10-02 06:10] LABS: Absolute Neutrophil Count 13.3 X10^3/uL (2.0-7.7); Neutrophil # 13.28 X10^3/uL (2.7-7.7); Polychromasia RARE
[2020-10-02 06:11] LABS: Absolute Lymphocyte Count 0.33 X10^3/uL (0.83-4.51); Lymphocyte # 0.33 X10^3/ul (0.83-4.51)
[2020-10-02] MEDS: Menthol/Lanolin/Calamine/Znox 113 GM Tube 1 APPLIC TOPICAL ×2 (09:04→21:09)
[2020-10-02] MEDS: Furosemide 40 MG/4 ML Vial IV (09:09)
--- NOTE | 2020-10-02 10:47 | PCM.PN.HOSP ---
Documented by User: Yvan MCFARLAND 10/02/20 11:04 Subjective Subjective Patient is a 80-year-old male comfortably resting in bed, alert and orient x3. Patient reports a nonproductive cough, which he claims is trying to clear his lungs. Denies chest pain, palpitations, hemoptysis, sputum production, fever, chills, N/V/D. Objective Data Objective Data Vital Signs: Vital Signs Temp Pulse Resp BP Pulse Ox 97.4 F L 72 18 141/51 H 95 10/02/20 09:01 10/02/20 09:01 10/02/20 09:01 10/02/20 09:01 10/02/20 09:01 Oxygen Flow Rate (L/min) 3 Oxygen Delivery Method Nasal Cannula Weight: 218 lb 7.649 oz Body Mass Index (BMI) 31.5 Intake & Output: Intake and Output for Last 24 Hours 09/30/20 10/01/20 10/02/20 23:59 23:59 23:59 Intake Total 801.08 / 801.08 909.43 / 917.76 327.61 / 327.61 Output Total 200 / 200 130 / 130 Balance 801.08 / 701.08 709.43 / 717.76 197.61 / 197.61 Medical Nutrition Assessment Dietitian: Malnutrition Criteria Met Start: 09/30/20 15:45 Freq: Status: Active Protocol: Document 09/30/20 15:45 SLA (Rec: 09/30/20 15:45 SLA [id number]) Nutrition Malnutrition Evidence of Malnutrition Exists Yes Malnutrition (severe): Chronic Evidenced By Suboptimal Energy Intake ( Severe),Weight Loss (Severe), Physical Changes (Severe) Intake Problem Increased Nutrient Needs (specify) Etiology protein related to skin status Signs/Symptoms as evidenced by PI to buttock and wound nurse following. Status Active Problem Clinical Problem Chronic Disease or Condition Related Malnutrition Etiology related to suboptimal po intake to meet pt estimated nutritional needs d/t cancer diagnosis and of spouse Signs/Symptoms as evidenced by decreased po intake over course of 8 months , 15.8% wt loss x 8 months and fat/muscle loss (temporal/ orbital region - upper body muscle loss leaving pt unable to sit upright on his own). Status Active Problem Recommendation Dietitian Recommendations/Changes Will consult WOUND CARE PHYSICIAN related to swallowing complaints Will liberalize diet to Regular d/t signs/symptoms of malnutrition Will provide yogurt w/ fruit mixed in 2x/day Will order vanilla ensure enlive w/ medpass 4x/day Lab / Micro Data Result Diagrams: 10/02/20 04:52 10/02/20 04:52 Labs: Laboratory Results - last 24 hr 10/01/20 07:04: Magnesium 2.1 10/02/20 04:52: WBC 16.4 H, RBC 3.28 L, Hgb 9.6 L, Hct 30.5 L, MCV 93.0, MCH 29.3, MCHC 31.5 L, RDW Std Deviation 61.1 H, RDW Coeff of Kristal 18.0 H, Plt Count 433, MPV 10.7, Neut % (Auto) Not Reportable, Absolute Neuts (auto) 13.3 H, Absolute Lymphs (auto) 0.33 L, Total Counted 100, Neutrophils % (Manual) 81 H, Lymphocytes % (Manual) 2 L, Monocytes % (Manual) 7, Metamyelocytes % 2 H, Myelocytes % 8 H, Promyelocytes % 1 H, Diff Path Review May foll, Platelet Estimate ADEQUATE, Polychromasia RARE 10/02/20 04:52: Sodium 135 L, Potassium 4.0, Chloride 96 L, Carbon Dioxide 32.0, Anion Gap 7, BUN 40 H, Creatinine 1.22, Estim Creat Clear Calc 49.03, Est GFR (MDRD) Af Amer 73, Est GFR (MDRD) Non-Af 61, BUN/Creatinine Ratio 32.8 H, Glucose 108 H, Calcium 11.2 H, TSH 0.44 Micro: Microbiology 09/30/20 09:25 Mucosa - Nose SARS-CoV-2 Antigen (Rapid) - Final Rhythm Strip Rhythm Strip: Sinus Rhythm Rate: 66 Ectopy: None Physical Exam Const alert, oriented x3 and no apparent distress HEENT head/scalp atraumatic, moist oral mucous membranes and oropharynx normal Head and Scalp: normocephalic Eyes PERRL, EOMs intact bilaterally and conjunctivae normal Neck no lymphadenopathy, supple and no JVD Resp Effort and Inspection: labored and actively coughing non-productive Auscultation: diminished lung sounds Cardio regular rate, regular rhythm, no murmurs and no JVD GI normal to inspection, nondistended, normoactive bowel sounds, soft to palpation and non-tender Extremity normal to inspection, full ROM and no clubbing, cyanosis or edema Skin no rashes or lesions noted, no wounds, skin turgor normal and no jaundice Neuro CN's II-XII intact bilaterally Psych affect normal Assessment & Plan Assessment/Plan (1) Pneumonia: (2) Hypoxia: (3) Pulmonary emboli: (4) Cancer with pulmonary metastases: PLAN: Day 3: See subjective. Discharge planning: Awaiting PRE-CERT/Acceptance to SNF. 1) Pulmonary embolism Patient is currently satting 93% on 3 L via nasal cannula and is without respiratory distress. Patient was supposed to discharge to hospice [facility], however discharge was delayed as above. D-dimer elevated at 4.31. CT-A demonstrates pulmonary emboli in the lower left lobe. Plan; remain admitted to PCU for cardiac telemetry monitoring, Eliquis 10 mg p.o. twice daily initiated, O2 per protocol. 2) Commuity acquired pneumonia in the setting of Non small cell lung cancer. Patient reports of a nonproductive cough, although respiratory status otherwise stable. CT-A demonstrates patchy infiltrates bilaterally with superimposed patchy infiltrates in the right upper lobe. Patient is afebrile, although is hypoxic satting 70% on room air. CBC demonstrates a leukocytosis of 16,000 with neutrophilic predominance. Rapid Covid is negative. Plan; as above, CBC and BMP in a.m., continue Zosyn, incentive spirometry encouraged. 3) acute hypoxic respiratory failure of mixed etiology As above. 4) Non-small cell carcinoma, squamous cell carcinoma. Likely contributing and complicating overall care. Follows with Dr. Clement of [facility]. 5) Paroxysmal atrial fiibrillaion w/ RVR Currently controlled on amiodarone drip. At about 0400 on 10/02 patient had an initial run of SVT on telemetry monitoring, EKG was obtained and demonstrated atrial fibrillation with RVR. Patient was given adenosine, and then Cardizem and is currently on amiodarone drip. Plan; continue amiodarone drip, continue cardiac telemetry monitoring. DVT prophylaxis - yan on therapeutic Lovenox Patient seen by Yvan Massey PA-C, under the supervision of Dr. Oliva. Documented by User: Dr. Bhavani Oliva MD 10/02/20 12:45 Objective Data Lab / Micro Data Result Diagrams: 10/02/20 04:52 10/02/20 04:52 Charges/Coding Addendum Addendum: This patient was seen in conjunction with BRUNA Galvez. I have independently interviewed and examined the patient and reviewed pertinent historical, laboratory, and other data. Please refer to BRUNA Galvez's note for his patient's presentation, findings, and recommendations. I have reviewed and his note and concur with his documentation Patient was seen and examined. Overnight, he went into A. fib with RVR. Given amiodarone. He maintains on amiodarone drip. Currently in normal sinus rhythm Physical Exam: Gen: Comfortable, on 3 L of oxygen, not pale, not jaundiced CVS:HS I +II, regular, no murmurs RESP: Diminished at lung bases GI: BS present and normal, soft, nontender, no palpable organs EXT:No edema ASSESSMENT: 1. Acute hypoxic respiratory failure 2. Acute PE 3. Pneumonia, likely postobstructive 4. Elevated troponin secondary to acute PE 5. A fib with RVR 6. Metastatic lung CA 6. Chronic diastolic CHF Plan: Continue still on IV Zosyn; will de-escalate from tomorrow if improved Continue on Eliquis Start on Coreg 3.125 twice daily, discontinue IV amiodarone DC IV Lasix, resume on home p.o. Lasix from [facility] [place] Repeat blood work in a.m. Discharge [facility] to [facility] Visit Charges Inpatient E&M: 77349 Subs Hosp L3
[2020-10-02] MEDS: APIXABAN 5 MG TABLET 10 MG PO ×2 (11:01→21:08)
[2020-10-02] MEDS: Carvedilol 3.125 MG TABLET PO ×2 (13:28→21:08)
[2020-10-02] MEDS: Furosemide 40 MG Tablet PO (17:35)
[2020-10-02] MEDS: Rosuvastatin Calcium 5 MG Tablet 10 MG PO (21:09)
[2020-10-03] VITALS (14 sets, daily range): BP systolic 98–153; BP diastolic 59–65; PULSE 70–85; RESP 18–20; TEMP 36.2–36.7; O2SAT 90–100
[2020-10-03 07:15] LABS: Hematocrit 35.2 % (40-54); Hemoglobin 11.3 g/dL (13.0-16.5); Mean Corp Hgb Conc 32.1 g/dL (32-36); Mean Corpuscular Hgb 29.7 pg (27.0-32.0); Mean Corpuscular Volume 92.6 fL (80-94); Mean Platelet Vol. 10.4 fl (6.2-12.0); POSITIVE COUNT YES; POSITIVE DIFFERENTIAL YES; POSITIVE MORPHOLOGY YES; Platelet Count 454 K/mm3 (150-450); RBC Distribution Width CV 17.7 % (11.6-14.6); RBC Distribution Width SD 60.1 fl (35.1-43.9); White Blood Count 19.5 K/mm3 (4.4-11.0)
[2020-10-03 07:17] LABS: Differential Indicated MANUAL DIFF
[2020-10-03 07:49] LABS: Neutrophil-Band 6 % (0-5); Neutrophil-Segmented 81 % (47-70); Total Cells Counted 100 (MANUAL DIFF)
[2020-10-03 07:50] LABS: Anisocytosis 1+; Eosinophil 1 % (0-5); Lymphocyte 7 % (19-41); Metamyelocyte 1 % (0-1); Monocyte 4 % (0-10)
[2020-10-03 07:52] LABS: Anion Gap 6 (5-15); BUN 39 mg/dL (7-18); BUN/Creat Ratio 36.1 RATIO (10-20); Calcium,Total 11.9 mg/dL (8.5-10.1); Chloride 98 mmol/L (98-107); Creatinine, Serum 1.08 mg/dL (0.70-1.30); EST Glomerular Filtration Rate 70 mL/min (>60); Est Glom Filt Rate - Afr Amer 84 mL/min (>60); Estimated Creatinine Clearance 55.39 ml/min; Glucose 98 mg/dL (74-106); Platelet Estimate SLT INC (ADEQ); Potassium 4.2 mmol/L (3.5-5.1); Red Cell Morphology N CHROM NORMAL (NORM C&C); Sodium Level 138 mmol/L (136-145)
[2020-10-03 07:55] LABS: Absolute Lymphocyte Count 1.37 X10^3/uL (0.83-4.51)
--- NOTE | 2020-10-03 10:18 | CASEMGMT ---
ROBERT faxed a referral to [facility]. SW also called and left a message regarding referral. SW spoke with patient's sons, Yo and Dejan. SW let them know SW sent a referral to [facility] and SW is waiting to hear back. SW asked if they had a 2nd choice if [facility] does not work out. [facility] is their second choice. ROBERT told them SW will let them know as soon as SW hears something. Melinda Patel DIAL MAKER [employer]
[2020-10-03] MEDS: APIXABAN 5 MG TABLET 10 MG PO ×2 (10:42→20:30)
[2020-10-03] MEDS: Potassium Chloride Oral Tablet 20 MEQ PO (10:42)
[2020-10-03] MEDS: Carvedilol 3.125 MG TABLET PO ×2 (10:42→20:31)
[2020-10-03] MEDS: Furosemide 40 MG Tablet PO ×2 (10:42→17:07)
[2020-10-03] MEDS: Menthol/Lanolin/Calamine/Znox 113 GM Tube 1 APPLIC TOPICAL ×2 (10:42→20:31)
[2020-10-03 12:56] LABS: Pathologist Review Reviewed
[2020-10-03 13:05] LABS: Pathologist Review Reviewed
[2020-10-03 13:08] LABS: Pathologist Review Reviewed
--- NOTE | 2020-10-03 13:40 | CASEMGMT ---
ROBERT called [facility] and [facility] said they can take patient. However, it would be $400 per day. ROBERT told her SW will talk with family and get back to her. ROBERT called patient's son Dejan and let him know above. ROBERT told him [facility] is $260 something a day but they want 2 weeks up front. Dejan asked ROBERT to send a referral to [facility]. ROBERT told him ROBERT will let him know as soon as SW hears something. ROBERT told him they are quicker with their responses. ROBERT called Yudi at [facility]. She is working from home so they will have her call ROBERT. Yudi called ROBERT back within 5 minutes. She will review the referral. ROBERT faxed the referral. Melinda Patel ENVIRONMENT COORDINATOR [employer]
--- NOTE | 2020-10-03 15:06 | CASEMGMT ---
ROBERT called Yudi at [facility] and she has not heard back from her photo producer yet regarding patient. She thinks he will be fine, but she needs the official OK. ROBERT called [facility] and spoke with Thais. ROBERT let her know that patient may be going to [facility] today. ROBERT told her SW is waiting on them to accept patient. Melinda MCCRARY
--- NOTE | 2020-10-03 15:15 | CASEMGMT ---
ROBRET received a phone call from Yudi and they can accept patient today. ROBERT called patient's son Dejan and let him know patient will be going to [facility] today. ROBERT told him someone will let him know when a time has been arranged. ROBERT notified physician. ROBERT will have staff notify [facility]osp[facility] and [facility] of medicinal plant picker time. Plan: d/c to [facility] under Hospice care on a PASRR. [facility] will transport via cot. Melinda MCCRARY
--- NOTE | 2020-10-03 15:31 | PCM.TXEXTCAR ---
Diet 09/30/20 15:45 Diet: Regular - General Food consistency:: Regular Liquid Consistency:: Regular/Thin Is pt able to select menu?: Yes Diet Comments: yogurt w/ fruit mixed in bid (not fruited yogurt) - likes berries; Wound(s) Left buttock: Wound Type: Pressure Injury left buttock: Wound Type: pressure injury with surrounding friction left ear: Wound Type: Pressure Injury Therapies Weight Bearing: Partial weight bearing Physical Therapy: Eval and Treat Occupational Therapy: Eval and Treat Speech Therapy: Eval and Treat Problem/Diagnosis (1) Pneumonia: Status: Acute (2) Hypoxia: Status: Acute (3) Pulmonary emboli: Status: Acute (4) Cancer with pulmonary metastases: Status: Acute Allergies/Procedures Done in Hospital Allergies doxazosin [From Cardura] Allergy (Mild, Verified 09/30/20 09:08) Chest tightness [id number] Reductase Inhibitor Adverse Reaction (Severe, Verified 09/30/20 09:08) JOINT PAIN Type of Care/Length of Stay Estimated LOS: Convalescent Care Less Than 30 days Type of Care Needed: Intermediate Rehab Potential: Good Prognosis: Good Additional Orders/Day of Discharge Day of Discharge: 10/03/20 Dietary and Speech Recommendations Dietitian Recommendations/Changes: Will consult CORRECTIONAL COOK related to swallowing complaints Will liberalize diet to Regular d/t signs/symptoms of malnutrition Will provide yogurt w/ fruit mixed in 2x/day Will order vanilla ensure enlive w/ medpass 4x/day Follow Up Care Please Follow Up With: Primary care provider Discharge Plan Admission Admit Date/Time: 09/30/20 11:25 Primary Reason for Your Visit: Shortness of breath Attending Provider: Josh Payne Primary Care Provider: Bandar Goldsmith III Discharge Orders/Prescriptions Prescriptions: New amoxicillin-pot clavulanate [Augmentin] 875-125 mg tablet 1 tab PO BID Qty: 14 RF: 0 Eliquis 5 mg tablet 5 mg PO BID Qty: 70 RF: 0 Continued lisinopril 20 MG tablet 20 mg PO BID RF: 0 acetaminophen 500 MG tablet 500 mg PO BID RF: 0 omeprazole 20 MG capsule,delayed release(DR/EC) 20 mg PO QHS RF: 0 aspirin 81 MG tablet,chewable 81 mg PO QHS RF: 0 rosuvastatin 10 MG tablet 10 mg PO QHS RF: 0 amlodipine 5 mg tablet 5 mg PO QHS RF: 0 potassium chloride 20 mEq Tablet Extended Release 20 meq PO DAILY RF: 0 furosemide 40 mg tablet 40 mg PO BID RF: 0 carvedilol 6.25 mg tablet 6.25 mg PO BID RF: 0 spironolactone [Aldactone] 25 mg tablet 25 mg PO DAILY RF: 0 Referrals / Follow Up: Bandar Goldsmith III, MD [Primary Care Provider] - Within 2 Weeks Disposition Disposition (needs filled in before D/C Order can be placed): Hospice in Medical Facility
--- NOTE | 2020-10-03 15:40 | PCM.DC.SUM ---
Documented by User: Yvan MCFARLAND 10/03/20 15:45 Providers Date of Admission: 09/30/20 Primary Care Physician: Dr. Bandar Goldsmith III, MD Reason For Visit: ACUTE HYPOXIC RESPIRATORY FAILURE Diagnosis Discharge Diagnosis (1) Pneumonia: Status: Acute Code(s): J18.9 - Pneumonia, unspecified organism (2) Hypoxia: Status: Acute Code(s): R09.02 - Hypoxemia (3) Pulmonary emboli: Status: Acute Code(s): I26.99 - Other pulmonary embolism without acute cor pulmonale (4) Cancer with pulmonary metastases: Status: Acute Code(s): C78.00 - Secondary malignant neoplasm of unspecified lung Medications at Discharge Home Medications acetaminophen 500 mg PO BID 01/22/20 aspirin 81 mg PO QHS 01/22/20 lisinopril 20 mg PO BID 01/22/20 omeprazole 20 mg PO QHS 01/22/20 rosuvastatin 10 mg PO QHS 01/22/20 amlodipine 5 mg PO QHS 06/20/20 carvedilol 6.25 mg PO BID 09/30/20 furosemide 40 mg PO BID 09/30/20 potassium chloride 20 meq PO DAILY 09/30/20 spironolactone [Aldactone] 25 mg PO DAILY 09/30/20 amoxicillin-pot clavulanate [Augmentin] 1 tab PO BID #14 tab 10/03/20 apixaban [Eliquis] 5 mg PO BID #70 tab 10/03/20 Hospital Course Summary of Care Provided Minutes Spent on Discharge: 35 Hospital Course: Disposition: Discharge to the [facility] for ongoing hospice care. 1) Pulmonary embolism Currently satting at 93% on 3 L via nasal cannula. Initiated on heparin drip, and then switched to therapeutic Lovenox. D-dimer elevated at 4.31. CT-A demonstrates pulmonary emboli in the lower left lobe. Plan; discharge to inpatient hospice, initiate Eliquis 10 mg twice daily x5 days (2 days already give in hospital), then transition to 5 mg p.o. twice daily thereafter. 2) Pneumonia in the setting of Non small cell lung cancer. CT-A demonstrates patchy infiltrates bilaterally with superimposed patchy infiltrates in the right upper lobe. CBC demonstrates a leukocytosis of 16,000 with neutrophilic predominance. Rapid Covid is negative. Plan; as above, initiate Augmentin 875 twice daily x 7 days. 3) acute hypoxic respiratory failure of mixed etiology As above. 4) Non-small cell carcinoma, squamous cell carcinoma. Likely contributing and complicating overall care. Follows with Dr. Clement of [facility]. Patient seen by Yvan Massey PA-C, under the supervision of Dr. Payne. Physical Exam Narrative Patient is an 80-year-old male comfortably resting in bed, alert and orient x3. Patient reports improvement in his shortness of breath and admission. Denies chest pain, shortness of breath, palpitations, hemoptysis, sputum production, fever, chills, N/V/D. Const alert, oriented x3 and no apparent distress HEENT normocephalic, head/scalp atraumatic and hearing grossly normal bilaterally Eyes EOMs intact bilaterally and conjunctivae normal Neck no lymphadenopathy, supple and no JVD Resp normal respiratory effort, normal air movement and no retractions Auscultation: diminished lung sounds Cardio regular rate, regular rhythm, no murmurs and no JVD GI normal to inspection, nondistended, normoactive bowel sounds, soft to palpation and non-tender Extremity normal to inspection, full ROM and no clubbing, cyanosis or edema Skin no rashes or lesions noted, no wounds and skin turgor normal Neuro CN's II-XII intact bilaterally Psych affect normal Medical Records Data Medical Nutrition Assessment Dietitian: Malnutrition Criteria Met Start: 09/30/20 15:45 Freq: Status: Active Protocol: Document 09/30/20 15:45 [facility] (Rec: 09/30/20 15:45 [facility] [id number]) Nutrition Malnutrition Evidence of Malnutrition Exists Yes Malnutrition (severe): Chronic Evidenced By Suboptimal Energy Intake ( Severe),Weight Loss (Severe), Physical Changes (Severe) Intake Problem Increased Nutrient Needs (specify) Etiology protein related to skin status Signs/Symptoms as evidenced by PI to buttock and wound nurse following. Status Active Problem Clinical Problem Chronic Disease or Condition Related Malnutrition Etiology related to suboptimal po intake to meet pt estimated nutritional needs d/t cancer diagnosis and of spouse Signs/Symptoms as evidenced by decreased po intake over course of 8 months , 15.8% wt loss x 8 months and fat/muscle loss (temporal/ orbital region - upper body muscle loss leaving pt unable to sit upright on his own). Status Active Problem Recommendation Dietitian Recommendations/Changes Will consult OBIEE LEAD DEVELOPER related to swallowing complaints Will liberalize diet to Regular d/t signs/symptoms of malnutrition Will provide yogurt w/ fruit mixed in 2x/day Will order vanilla ensure enlive w/ medpass 4x/day Weight / BMI Weight Weight: 216 lb 4.375 oz Body Mass Index (BMI) 31.5 ABG / Lab / Microbiology Data Result Diagrams: 10/03/20 07:00 10/03/20 07:00 Laboratory: Laboratory Results - last 24 hr 10/01/20 07:04: Diff Path Review Reviewed 10/02/20 04:52: Diff Path Review Reviewed 10/03/20 07:00: WBC 19.5 H, RBC 3.80 L, Hgb 11.3 L, Hct 35.2 L, MCV 92.6, MCH 29.7, MCHC 32.1, RDW Std Deviation 60.1 H, RDW Coeff of Kristal 17.7 H, Plt Count 454 H, MPV 10.4, Neut % (Auto) Not Reportable, Absolute Neuts (auto) 17.0 H, Absolute Lymphs (auto) 1.37, Total Counted 100, Neutrophils % (Manual) 81 H, Band Neutrophils % 6 H, Lymphocytes % (Manual) 7 L, Monocytes % (Manual) 4, Eosinophils % (Manual) 1, Metamyelocytes % 1, Diff Path Review Reviewed, Platelet Estimate SLT INC, RBC Morphology N CHROM, Anisocytosis 1+ 10/03/20 07:00: Sodium 138, Potassium 4.2, Chloride 98, Carbon Dioxide 34.0 H, Anion Gap 6, BUN 39 H, Creatinine 1.08, Estim Creat Clear Calc 55.39, Est GFR (MDRD) Af Amer 84, Est GFR (MDRD) Non-Af 70, BUN/Creatinine Ratio 36.1 H, Glucose 98, Calcium 11.9 H Microbiology: Microbiology 09/30/20 09:25 Mucosa - Nose SARS-CoV-2 Antigen (Rapid) - Final D/C Instructions Discharge Diet: No restrictions Weight Bearing Status: Weight bearing as tolerated Call your doctor if you observe: Fever of 101 or Higher, Numbness or Tingling, Shortness of breath, Dizziness, Chest pain, Increased palpitations (irregular heartbeat) and Calf discomfort Please Follow Up With: Primary care provider When: Within the next two weeks. Meaningful Use Info Meaningful Use Diagnoses (Choose all that apply): VTE VTE Anticoag overlap given w/in hospital stay or rx'd at dc?: Yes Pt receive overlap for 5 days?: Yes Discharge Plan Admission Admit Date/Time: 09/30/20 11:25 Primary Reason for Your Visit: Shortness of breath Attending Provider: Josh Payne Primary Care Provider: Bandar Goldsmith III Discharge Orders/Prescriptions Prescriptions: New amoxicillin-pot clavulanate [Augmentin] 875-125 mg tablet 1 tab PO BID Qty: 14 RF: 0 Eliquis 5 mg tablet 5 mg PO BID Qty: 70 RF: 0 Continued lisinopril 20 MG tablet 20 mg PO BID RF: 0 acetaminophen 500 MG tablet 500 mg PO BID RF: 0 omeprazole 20 MG capsule,delayed release(DR/EC) 20 mg PO QHS RF: 0 aspirin 81 MG tablet,chewable 81 mg PO QHS RF: 0 rosuvastatin 10 MG tablet 10 mg PO QHS RF: 0 amlodipine 5 mg tablet 5 mg PO QHS RF: 0 potassium chloride 20 mEq Tablet Extended Release 20 meq PO DAILY RF: 0 furosemide 40 mg tablet 40 mg PO BID RF: 0 carvedilol 6.25 mg tablet 6.25 mg PO BID RF: 0 spironolactone [Aldactone] 25 mg tablet 25 mg PO DAILY RF: 0 Referrals / Follow Up: Bandar Goldsmith III, MD [Primary Care Provider] - Within 2 Weeks Disposition Disposition (needs filled in before D/C Order can be placed): Hospice in Medical Facility Documented by User: Dr. Josh Payne MD 10/03/20 16:01 Providers Date of Admission: 09/30/20 Reason For Visit: ACUTE HYPOXIC RESPIRATORY FAILURE Medications at Discharge Home Medications acetaminophen 500 mg PO BID 01/22/20 aspirin 81 mg PO QHS 01/22/20 lisinopril 20 mg PO BID 01/22/20 omeprazole 20 mg PO QHS 01/22/20 rosuvastatin 10 mg PO QHS 01/22/20 amlodipine 5 mg PO QHS 06/20/20 carvedilol 6.25 mg PO BID 09/30/20 furosemide 40 mg PO BID 09/30/20 potassium chloride 20 meq PO DAILY 09/30/20 spironolactone [Aldactone] 25 mg PO DAILY 09/30/20 amoxicillin-pot clavulanate [Augmentin] 1 tab PO BID #14 tab 10/03/20 apixaban [Eliquis] 5 mg PO BID #70 tab 10/03/20 Hospital Course Operations None Summary of Care Provided Hospital Course: This patient was seen in conjunction with Yvan Massey PA-C. I have independently interviewed and examined the patient and reviewed pertinent historical, laboratory, and other data. Please refer to Yvan Massey PA-C's note for details of this patient's presentation, findings, and recommendations. I have reviewed Yvan Massey PA-C's note and concur with documented findings. In brief, patient is a an 80-year-old gentleman with history of non-small cell lung CA admitted with shortness of breath. Patient was found to have acute hypoxic respiratory failure secondary to combination of pulmonary embolism and pneumonia. Patient admitted to monitored bed for subsequent management for subsequent management. Patient was transferred to a assisted facility with hospice after stabilization of his medical condition Hospital course ?As documented above ABG / Lab / Microbiology Data Result Diagrams: 10/03/20 07:00 10/03/20 07:00 Discharge Plan Admission Admit Date/Time: 09/30/20 11:25 Primary Reason for Your Visit: Shortness of breath Attending Provider: Josh Payne Primary Care Provider: Bandar Goldsmith III Discharge Orders/Prescriptions Prescriptions: New amoxicillin-pot clavulanate [Augmentin] 875-125 mg tablet 1 tab PO BID Qty: 14 RF: 0 Eliquis 5 mg tablet 5 mg PO BID Qty: 70 RF: 0 Continued lisinopril 20 MG tablet 20 mg PO BID RF: 0 acetaminophen 500 MG tablet 500 mg PO BID RF: 0 omeprazole 20 MG capsule,delayed release(DR/EC) 20 mg PO QHS RF: 0 aspirin 81 MG tablet,chewable 81 mg PO QHS RF: 0 rosuvastatin 10 MG tablet 10 mg PO QHS RF: 0 amlodipine 5 mg tablet 5 mg PO QHS RF: 0 potassium chloride 20 mEq Tablet Extended Release 20 meq PO DAILY RF: 0 furosemide 40 mg tablet 40 mg PO BID RF: 0 carvedilol 6.25 mg tablet 6.25 mg PO BID RF: 0 spironolactone [Aldactone] 25 mg tablet 25 mg PO DAILY RF: 0 Referrals / Follow Up: Bandar Goldsmith III, MD [Primary Care Provider] - Within 2 Weeks Disposition Disposition (needs filled in before D/C Order can be placed): Hospice in Medical Facility Charges/Coding Visit Charges Inpatient E&M: 49039 Disch Hosp Hospital Course Operations None
--- NOTE | 2020-10-03 15:55 | PHA.DC.MR ---
Pharmacy Service has performed discharge medication reconciliation for this patient. The patient's discharge medication list was reviewed for discrepancies and discrepancies were resolved. Home Medications acetaminophen 500 mg PO BID 01/22/20 aspirin 81 mg PO QHS 01/22/20 lisinopril 20 mg PO BID 01/22/20 omeprazole 20 mg PO QHS 01/22/20 rosuvastatin 10 mg PO QHS 01/22/20 amlodipine 5 mg PO QHS 06/20/20 carvedilol 6.25 mg PO BID 09/30/20 furosemide 40 mg PO BID 09/30/20 potassium chloride 20 meq PO DAILY 09/30/20 spironolactone [Aldactone] 25 mg PO DAILY 09/30/20 amoxicillin-pot clavulanate [Augmentin] 1 tab PO BID #14 tab 10/03/20 apixaban [Eliquis] 5 mg PO BID #70 tab 10/03/20
--- NOTE | 2020-10-03 18:41 | NURSING ---
Report called to nurse Yoon at the [facility].
[2020-10-03] MEDS: Ipratropium/Albuterol Sulfate 3 ML AMPUL.NEB INHALATION (19:20)
[2020-10-03] MEDS: Rosuvastatin Calcium 5 MG Tablet 10 MG PO (20:31)
== END 2020-10-03 21:51 | disposition hospice, inpatient (51) | DRG 175 ==
LOC: ED 11:16 → PCU 11:35
PROVIDERS: Hospitalist; Physician Assistant; Admitting Provider Internal Medicine; Emergency Provider Emergency Medicine; PCP Family Medicine; Visit Provider Internal Medicine
DX: I26.99 Other pulmonary embolism without acute cor pulmonale (principal); J18.9 Pneumonia, unspecified organism; J96.01 Acute respiratory failure with hypoxia; C79.51 Secondary malignant neoplasm of bone; C79.31 Secondary malignant neoplasm of brain; J44.0 Chronic obstructive pulmonary disease with (acute) lower respiratory infection; I50.32 Chronic diastolic (congestive) heart failure; C78.00 Secondary malignant neoplasm of unspecified lung; C34.90 Malignant neoplasm of unspecified part of unspecified bronchus or lung; L89.91 Pressure ulcer of unspecified site, stage 1; I31.3 Pericardial effusion (noninflammatory); I11.0 Hypertensive heart disease with heart failure; E78.5 Hyperlipidemia, unspecified; K21.9 Gastro-esophageal reflux disease without esophagitis; I48.91 Unspecified atrial fibrillation; I65.22 Occlusion and stenosis of left carotid artery; Z66 Do not resuscitate; Z99.81 Dependence on supplemental oxygen; Z87.891 Personal history of nicotine dependence
CPT/HCPCS: 36415; 71045; 71275; 80048; 80053; 83735; 83880; 84443; 84484; 85025; 85379; 85610; 85730; 87426; 92507; 92610; 93005; 94640; 97162; 97166; 97530; 97535; 97802; 99285; J7030; J7050; Q9967; A4216; J0153; J1940